=== PATIENT | male | born 1945 | race Caucasian/White ===

== ENCOUNTER → 2018-03-30 09:50 | Outpatient (CLI) | payer MEDICARE, SELFPAY ==
--- NOTE | 2018-03-30 09:53 | DI.RAD.S_ITS ---
PROCEDURE: XR LUMBAR SPINE MIN 4V INDICATIONS: Hip DJD TECHNIQUE: 5 views of the lumbar spine acquired. COMPARISON: [facility], , L-SPINE WITHOUT CONTRAST, 08/21/2017, 8:38. FINDINGS: Bones: 5 nonrib-bearing vertebrae are present. There is dextroconvex rotary scoliosis, mild retrolisthesis L2-3 and L3-4, anterolisthesis L5-S1, unchanged. No vertebral body compression fractures. No suspicious bony lesions, benign sclerosis in the left femoral head again noted. Disc degeneration all lumbar levels. Soft tissues: Overlying bowel gas pattern is normal. Aortic calcifications. Oblique views: No pars defects. Degenerative facet disease L4-5 and L5-S1. IMPRESSION: 1. No acute bony abnormality. 2. Scoliosis, malalignment, multilevel disc disease and facet arthropathy, appearing unchanged. Dictated by: Tej Call M.D. on 03/30/2018 at 10:21 Approved by: Tej Call M.D. on 03/30/2018 at 10:26
--- NOTE | 2018-03-30 09:53 | DI.RAD.S_ITS ---
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 COMPARISON: [facility], CR, [id number] W PEL IF PERFORMED, 06/22/2016, 10:21. FINDINGS: Bones: No fractures or dislocations. Pelvic ring appears intact. Benign sclerosis in the left femoral head is again unchanged. Mild degree of degenerative hip joint disease is unchanged. The degenerative disc disease and spondylosis lower lumbar spine with scoliosis. Soft tissues: The visualized bowel gas pattern is normal. Bilateral calcifications present overlying the greater trochanters. IMPRESSION: 1. Grade 1 osteoarthritis of the hips, unchanged. 2. Benign sclerosis left femoral head, unchanged from 2008. 3. Calcifications overlying the greater trochanters may represent calcific tendinopathy or bursitis. 4. Degenerative lumbar spine disease. Dictated by: Tej Call M.D. on 03/30/2018 at 10:16 Approved by: Tej Call M.D. on 03/30/2018 at 10:20
== END ==
PROVIDERS: PCP Family Medicine; Visit Provider Physical Medicine & Rehabilitation
DX: M43.17 Spondylolisthesis, lumbosacral region (principal); M16.0 Bilateral primary osteoarthritis of hip; M25.852 Other specified joint disorders, left hip; M25.851 Other specified joint disorders, right hip; M51.36 Other intervertebral disc degeneration, lumbar region; M47.816 Spondylosis without myelopathy or radiculopathy, lumbar region; M41.9 Scoliosis, unspecified
CPT/HCPCS: 72110; 73522

== ENCOUNTER 2018-04-25 08:43 | Outpatient (CLI) | payer MEDICARE, SELFPAY ==
[2018-04-25] VITALS (13 sets, daily range): BP systolic 113–131; BP diastolic 62–79; PULSE 64–81; RESP 18–64; TEMP 36.5; O2SAT 95–100
--- NOTE | 2018-04-25 08:44 | DI.RAD.S_ITS ---
PROCEDURE: PAIN L/SI FACET INJ/BLK 1STL INDICATIONS: right L4/5, L5/S1 Facet Injection FINDINGS: Fluoroscopic spot filming was performed to verify placement of spinal needles at the right L4-5 and right L5-S1 facet region level level(s), as labeled on the films. Appropriate location(s) of the needle tip(s) was confirmed by injection of iodinated contrast. IMPRESSION: Successful right L4 and right L5 nerve root region localization for injection. Dictated by: Joseph Collins M.D. on 04/25/2018 at 13:33 Approved by: Joseph Collins M.D. on 04/25/2018 at 13:34
[2018-04-25] MEDS: BUPIVACAINE 0.5% (PF) VIAL 2 ML INJ (09:54)
[2018-04-25] MEDS: BETAMETHASONE 30 MG/5 ML MDV 12 MG INJ (09:54)
[2018-04-25] MEDS: LIDOCAINE 1% 20 ML INJ 10 ML INJ (09:55)
[2018-04-25] MEDS: IOPAMIDOL 15 ML VIAL 3 ML INJ (09:55)
[2018-04-25] MEDS: MIDAZOLAM 5 MG/5 ML VIAL IV (09:55)
--- NOTE | 2018-04-25 10:02 | P.PCN_ITS ---
Procedures Date/Time Date of procedure: 04/25/18 Time of procedure: 10:01 General Procedure description: PREOP DIAGNOSIS 1. FACET ARTHROPATHY, 2. AXIAL LBP, 3. MULTILEVEL DDD, POST OP DIAGNOSIS 1. FACET ARTHROPATHY, 2. AXIAL LBP, 3. MULTILEVEL DDD, PROCEDURES 1. FLUORSCOPICALLY GUIDED CONTRAST CONTROLLED FACET JOINT INJECTIONS RIGHT L4/5 , L5/S1 SURGEON: Artemio Mitchell, DO INDICATIONS William is referred by for treatment of Axial LBP FINDINGS Multilevel Facet Arthropathy with Clinically significant axial LBP DESCRIPTION OF PROCEDURE Fluoroscopically guided, contrast-controlled right L4/5, L5/S1 facet joint injections. Following denial of allergy and review of potential side effects and complications, including, but not necessarily limited to, infection, allergic reaction, local tissue breakdown, stroke, temporary or permanent nerve injury, paralysis, and possible , the patient indicated that the patient understood and agreed to proceed. An informed consent document was signed by the patient, witnessed by a nurse, and placed in the patient's chart. Additionally, other treatment options including medications, modalities, and physical therapy were reviewed with the patient. After review of previous anaesthesic history and IV conscious sedation the patient was deemed safe to proceed with todays procedure with IV conscious sedation as ASA class II designation. Safety time-out was performed to confirm patient ID, procedure to be performed and site of procedure. IV sedation was accomplished with a combination of 3mg was administered by the RN after DO order , titrated to patient comfort during the course of the procedure while the patient remained responsive to all verbal commands. In the prone position, following sterile prep and drape of the lumbar region, the posterior aspect of the right L4/5, L5/S1 facet joints were identified fluoroscopically. The skin was anesthetized via a 25-gauge 1.5-inch needle with 1% lidocaine solution into the corresponding facet joints. At this point, a 22-gauge 3.5-inch spinal needle was atraumatically introduced and advanced under fluoroscopic guidance into the corresponding facet joints. Following negative aspiration, injections of approximately 0.2-cc of Isovue 200 confirmed interarticular placement without vascular uptake. Radiological data, including multiple fluoroscopic views of the lumbosacral spine, reveal a spinal needle at the right L4/5, L5/S1 facet joints. Subsequent views show flow of contrast material both superiorly and inferiorly within the joint space without vascular or intrathecal uptake. At this point, a total of 0.5 cc including a mixture of 0.25cc Marcaine and 0.25cc betamethasone was injected without complication into each of the corresponding facet joints. The procedure tolerated the procedure well without signs or symptoms of complications prior to transfer to the recovery area continued monitoring without incident. The patient was then transferred to the recovery area where they were observed for an appropriate period of time after the injection. The patient reported a VAS score of 7 prior to the procedure and a post-procedure VAS of 0. Total Fluoroscopy Time: 12.7 seconds Total Conscious Sedation Time: 24min POST OP INSTRUCTIONS The patient was provided a Pain Log to continue to record their response to the target-specific procedure prior to follow-up visit with their referring physician. Additionally, specific post-injection care instructions and a contact number to our office were provided if concerns arise regarding possible complications associated with the procedure are suspected. Artemio Mitchell DO Complications: none
== END 2018-04-25 10:50 ==
LOC: RAD 08:43
PROVIDERS: PCP Family Medicine; Visit Provider Physical Medicine & Rehabilitation
DX: M47.816 Spondylosis without myelopathy or radiculopathy, lumbar region (principal); M47.817 Spondylosis without myelopathy or radiculopathy, lumbosacral region; M51.36 Other intervertebral disc degeneration, lumbar region; M51.37 Other intervertebral disc degeneration, lumbosacral region
CPT/HCPCS: 64491; 64493; 64494; 99152; J0702; J2250

== ENCOUNTER 2018-07-18 09:21 | Outpatient (CLI) | payer MEDICARE, SELFPAY ==
[2018-07-18] VITALS (8 sets, daily range): BP systolic 126–142; BP diastolic 60–79; PULSE 70–79; RESP 16–18; TEMP 36.7; O2SAT 96–100
--- NOTE | 2018-07-18 09:23 | DI.RAD.S_ITS ---
PROCEDURE: PAIN L/S TRANSFORAMINAL INJECT INDICATIONS: SPINAL STENOSIS FINDINGS: Fluoroscopic spot filming was performed to verify placement of spinal needles at the right L5-S1 facet joint area level(s), as labeled on the films. Appropriate location(s) of the needle tip(s) was confirmed by injection of iodinated contrast. IMPRESSION: Successful needle tip localization for epidural steroid injection near the facet joint area of L5-S1 on the right. Dictated by: Joseph Collins M.D. on 07/18/2018 at 14:14 Approved by: Joseph Collins M.D. on 07/18/2018 at 14:14
[2018-07-18] MEDS: MIDAZOLAM 5 MG/5 ML VIAL IV (10:35)
[2018-07-18] MEDS: methylPREDNISolone acetate 80 MG/ML VIAL INJ (10:43)
[2018-07-18] MEDS: IOPAMIDOL 15 ML VIAL 3 ML INJ (10:43)
[2018-07-18] MEDS: BUPIVACAINE 0.25% (PF) VIAL 2 ML INJ (10:43)
[2018-07-18] MEDS: DEXAMETHASONE 10 MG/ML VIAL 20 MG INJ (10:43)
--- NOTE | 2018-07-18 10:45 | PC.NURSE ---
ASSISTING PT OFF TABLE AND TRANSPORTING TO POST PROC AREA IN STABLE CONDITION
--- NOTE | 2018-07-18 10:49 | P.PCN_ITS ---
Procedures Date/Time Date of procedure: 07/18/18 Time of procedure: 10:48 General Procedure description: PROVIDER: Artemio Mitchell DO Operative Note PREOP DIAGNOSIS 1. HNP WITH RADICULAR FEATURES, 2. MULTILEVEL CENTRAL STENOSIS, POST OP DIAGNOSIS 1. HNP WITH RADICULAR FEATURES, 2. MULTILEVEL CENTRAL STENOSIS, PROCEDURES 1. FLUORSCOPICALLY GUIDED CONTRAST CONTROLLED INTERLAMINAR EPIDURAL STEROID INJECTION - L5/S1 PHYSICIAN: Artemio Mitchell, INDICATIONS William is referred by Dr. Guerrier for treatment of Bilateral Foraminal Stenosis L>R LE symptoms. FINDINGS Multilevel Central Spinal Stenosis with Nerve Root Compression DESCRIPTION OF PROCEDURE Fluoroscopically guided, contrast-controlled para right L5/S1 translaminar epidural steroid injection. Following denial of allergy and review of potential side effects and complications, including, but not necessarily limited to, infection, allergic reaction, local tissue breakdown, temporary as well as permanent nerve injury, paralysis, stroke and possible , the patient indicated that the patient understood and agreed to proceed. An informed consent document was signed by the patient, witnessed by a nurse, and placed in the patient's chart. Additionally, other treatment options including modalities, medications, and physical therapy were reviewed with the patient. After review of previous anaesthesic history and IV conscious sedation the patient was deemed safe to proceed with todays procedure with IV conscious sedation as ASA class II designation. Safety time-out was performed to confirm patient ID, procedure to be performed and site of procedure. IV sedation was accomplished with a combination of 3mg of Versed administered by the RN after DO order, titrated to patient comfort during the course of the procedure while the patient remained responsive to all verbal commands. In the prone position, following sterile prep and drape of the lumbar region, the L5/S1 translaminar space was identified fluoroscopically. The skin was anesthetized via a 25-gauge, 1.5-inch needle with 1% lidocaine solution. At this point, a 22-gauge short bevel spinal needle was atraumatically introduced and advanced under fluoroscopic guidance into the region of the L5/S1 translaminar space. Depth was confirmed on lateral view. Radiological data, including multiple fluoroscopic views of the lumbar spine, reveal a spinal needle at the L5/S1 translaminar space. Lateral views then show placement of the needle in the epidural space. Subsequent views show contrast material flowing superiorly and inferiorly in the epidural space. No vascular or intrathecal uptake is observed. At this point, using loss of resistance technique with saline and air, the epidural space was entered. This was confirmed following negative aspiration with injection of approximately 1.5 cc of Isovue 200, showing excellent epidural flow without vascular or intrathecal uptake. At this point, 1 cc of 1 % lidocaine solution combined with 3 cc or 20 mg of dexamethasone and 80mg Depo medrol was injected without incident. The patent tolerated the procedure without signs of symptoms of complications prior to transfer to the recovery area for further monitoring. The patient was then transferred to the recovery area where they were observed for an appropriate period of time after the injection. The patient reported a VAS score of 6 prior to the procedure and a post-procedure VAS of 0. Total Fluoroscopy Time: 11.8 seconds Total Conscious Sedation Time: 24min POST OP INSTRUCTIONS The patient was provided a Pain Log to continue to record their response to the target-specific procedure prior to follow-up visit with their referring physician. Additionally, specific post-injection care instructions and a contact number to our office were provided if concerns arise regarding possible complications associated with the procedure are suspected. Artemio Mitchell DO Complications: none
--- NOTE | 2018-07-18 11:38 | PC.NURSE ---
Received pt from Leilani AUSTIN via Wheelchair, pt alert and able to move on own with some pain in right leg more than usual. Resumed monitoring.
== END 2018-07-18 11:15 ==
LOC: RAD 09:23
PROVIDERS: PCP Family Medicine; Visit Provider Physical Medicine & Rehabilitation
DX: M48.062 Spinal stenosis, lumbar region with neurogenic claudication (principal); M51.17 Intervertebral disc disorders with radiculopathy, lumbosacral region; M48.07 Spinal stenosis, lumbosacral region; M43.17 Spondylolisthesis, lumbosacral region
CPT/HCPCS: 64483; 99152; J0702; J1040; J1100; J2250

== ENCOUNTER 2018-12-25 13:05 | Outpatient (CLI) | payer MEDICARE, SELFPAY ==
--- NOTE | 2018-12-25 13:26 | DI.RAD.S_ITS ---
PROCEDURE: PAIN L/S TRANSFORAMINAL INJECT INDICATIONS: SPINAL STENOSIS FINDINGS: Fluoroscopic spot filming was performed to verify placement of spinal needle on the right at the L3-4 level(s), as labeled on the films. Appropriate location(s) of the needle tip(s) was confirmed by injection of iodinated contrast. IMPRESSION: Frontal and lateral views show normal positioning of the needle tip for perineural L3-L4 transforaminal epidural steroid injection on the right. Dictated by: Joseph Collins M.D. on 12/25/2018 at 15:42 Approved by: Joseph Collins M.D. on 12/25/2018 at 15:43
[2018-12-25 13:28] VITALS: BP 143/73; PULSE 71; RESP 16; TEMP 36.2; O2SAT 98
[2018-12-25 13:50] VITALS: BP 133/61; PULSE 72; RESP 16; O2SAT 97
[2018-12-25] MEDS: MIDAZOLAM 5 MG/5 ML VIAL IV (13:50)
[2018-12-25 13:55] VITALS: BP 124/55; PULSE 71; RESP 17; O2SAT 97
[2018-12-25] MEDS: DEXAMETHASONE 10 MG/ML VIAL 20 MG INJ (13:57)
[2018-12-25] MEDS: BUPIVACAINE 0.25% (PF) VIAL 2 ML INJ (13:57)
[2018-12-25] MEDS: IOPAMIDOL 15 ML VIAL 3 ML INJ (13:57)
[2018-12-25 14:00] VITALS: BP 114/58; PULSE 71; RESP 16; O2SAT 96
--- NOTE | 2018-12-25 14:02 | PC.NURSE ---
pt tolerated procedure well. pt able to get off table with standby assist. Transferred pt to pre procedure room via wheelchair for continued monitoring with Leilani AUSTIN.
--- NOTE | 2018-12-25 14:07 | P.PCN_ITS ---
Procedures Date/Time Date of procedure: 12/25/18 Time of procedure: 14:06 General Procedure description: PROVIDER: Artemio Mitchell DO Operative Note PREOP DIAGNOSIS 1. FORAMINAL STENOSIS WITH LE SYMPTOMS, POST OP DIAGNOSIS 1. FORAMINAL STENOSIS WITH LE SYMPTOMS, PROCEDURES 1. FLUOROSCOPICALLY GUIDED CONTRAST CONTROLLED TRANSFORAMINAL EPIDURAL STEROID INJECTION - RIGHT L3/4 TFESI SURGEON: Artemio Mitchell, INDICATIONS William is referred by Dr. Guerrier for treatment of Foraminal Stenosis with right LE Symptoms FINDINGS Foraminal Nerve Root Compression secondary to disc disease and facet hypertrophy DESCRIPTION OF PROCEDURE Following denial of allergy and review of potential side effects and complications, including, but not necessarily limited to, infection, allergic reaction, local tissue breakdown, stroke, temporary or permanent nerve injury, paralysis, and possible , the patient indicated that the patient understood and agreed to proceed. An informed consent document was signed by the patient, witnessed by a nurse, and placed in the patient's chart. Additionally, other treatment options including medications, modalities, and physical therapy were reviewed with the patient. After review of previous anaesthesic history and IV conscious sedation the patient was deemed safe to proceed with todays procedure with IV conscious sedation as ASA class II designation. Safety time-out was performed to confirm p atient ID, procedure to be performed and site of procedure. IV sedation was accomplished with a combination of 3mg of Versed was administered by the RN after DO order, titrated to patient comfort during the course of the procedure while the patient remained responsive to all verbal commands In the prone position following sterile prep and drape of the lumbar region, the right L3/4 posterior neuroforamen was identified fluoroscopically. The skin was anesthetized via a 25-gauge 1.5-inch needle with 1% lidocaine solution. At this point, a 25-gauge 3.5-inch spinal needle was atraumatically introduced and advanced under fluoroscopic guidance through the posterior right L3/4 neuroforamen to approximately the anterior aspect of the canal. Depth was confirmed on lateral view. Following negative aspiration, injection of approximately 1.5 cc of Isovue 200 under live fluoroscopy in the AP view confirmed excellent flow along the nerve root, into the epidural space without vascular or intrathecal uptake observed Radiological data, including multiple fluoroscopic views of the lumbosacral spine, reveal a spinal needle at the right L3/4 posterior neuroforamen. Subsequent views show flow of contrast material flowing superiorly and inferiorly along the nerve root confirming epidural flow. Subsequently, a test dose of 1.5 cc of 1% lidocaine solution was administered and patient was observed for two minutes for signs or symptoms of complications, including abdominal pain, shortness of breath, bilateral upper or lower extremity weakness, nausea and vomiting, prior to steroid injection. At this point, a total of 2cc or 20mg of dexamethasone was injected without incident. The patient tolerated the procedure well without signs or symptoms of complications prior to transfer to the recovery area continued monitoring without incident. The patient was then transferred to the recovery area where they were observed for an appropriate time after the injection. The patient reported a VAS score of 7 prior to the procedure and a post-procedure VAS of 0. Total Fluoroscopy Time: 24.2 seconds Total Conscious Sedation Time: 24min POST OP INSTRUCTIONS The patient was provided a Pain Log to continue to record their response to the target-specific procedure prior to follow-up visit with their referring physician. Additionally, specific post-injection care instructions and a contact number to our office were provided if concerns arise regarding possible complications associated with the procedure are suspected. Artemio Mitchell DO Complications: none
[2018-12-25 14:11] VITALS: BP 134/75; PULSE 68; RESP 16; O2SAT 97
[2018-12-25 14:15] VITALS: BP 133/76; PULSE 68; RESP 16; O2SAT 98
--- NOTE | 2018-12-26 12:18 | PC.NURSE ---
Follow up call post Right L3/4 Transforaminal CLAUDIO and pt reports he feels much better today and woke up without pain.
== END 2018-12-25 14:30 | disposition home or self-care (01) ==
LOC: RAD 13:07
PROVIDERS: PCP Family Medicine; Visit Provider Physical Medicine & Rehabilitation
DX: M48.062 Spinal stenosis, lumbar region with neurogenic claudication (principal); M46.96 Unspecified inflammatory spondylopathy, lumbar region
CPT/HCPCS: 64483; 99152; J1100; J2250; J3010

== ENCOUNTER 2019-02-21 10:14 | Outpatient (CLI) | payer MEDICARE, SELFPAY ==
[2019-02-21] VITALS (8 sets, daily range): BP systolic 112–131; BP diastolic 57–82; PULSE 67–75; RESP 16–18; TEMP 36.6; O2SAT 94–99
--- NOTE | 2019-02-21 10:15 | DI.RAD.S_ITS ---
PROCEDURE: PAIN L/S FACET INJ/BLK 1ST CHIKA INDICATIONS: SPONDYLOSIS FINDINGS: 6 intraoperative fluoroscopy images demonstrate needle placement under fluoroscopy. IMPRESSION: Fluoroscopy for pain management. Dictated by: Betsy Pichardo M.D. on 02/21/2019 at 12:26 Approved by: Betsy Pichardo M.D. on 02/21/2019 at 12:26
[2019-02-21] MEDS: MIDAZOLAM 5 MG/5 ML VIAL IV (11:03)
[2019-02-21] MEDS: fentaNYL 100 MCG/2 ML INJ 50 MCG IV (11:03)
[2019-02-21] MEDS: IOPAMIDOL 15 ML VIAL 3 ML INJ (11:10)
[2019-02-21] MEDS: LIDOCAINE 1% 20 ML INJ 10 ML INJ (11:11)
[2019-02-21] MEDS: BUPIVACAINE 0.5% (PF) VIAL 30 ML INJ (11:12)
[2019-02-21] MEDS: BETAMETHASONE 30 MG/5 ML MDV 12 MG INJ (11:12)
--- NOTE | 2019-02-21 11:25 | PC.NURSE ---
Pt tolerated procedure well. Able to get off table with standby assist. Transferred pt via wheelchair alert and awake to pre procedure room for continued monitoring with Leilani AUSTIN.
--- NOTE | 2019-02-21 11:34 | PM.PROC.1 ---
Procedures Date/Time Date of procedure: 02/21/19 Time of procedure: 11:34 General Procedure description: Procedure description: 1. FACET ARTHROPATHY PROCEDURES: 1. BILATERAL- L4, L5 and S1 MB BLOCKS PHYSICIAN: DO KARIME Timmons William is referred by Dr. Guerrier for treatment of Bilateral Axial LBP. DESCRIPTION OF PROCEDURE Fluoroscopically guided, contrast-controlled bilateral L4, L5 and S1 medial branch blocks with 0.5cc of 0.5% Marcaine. Following review of allergy and review of potential side effects and complications, including, but not necessarily limited to, infection, allergic reaction, local tissue breakdown, nerve injury, paralysis, stroke and possible , the patient indicated that the patient understood and agreed to proceed. An informed consent document was signed by the patient, witnessed by a nurse, and placed in the patient's chart. After review of previous anaesthesic history and IV conscious sedation the patient was deemed safe to proceed with todays procedure with IV conscious sedation as ASA class II designation. Safety time-out was performed to confirm patient ID, procedure to be performed and site of procedure. IV sedation was accomplished with a combination of 2mg of Versed and 50mcg of Fentanyl was administered by the RN after DO order, titrated to patient comfort during the course of the procedure while the patient remained responsive to all verbal commands In the prone position, following sterile prep and drape of the lumbar region, the right L4, L5 and S1 anatomical location of the medial branch of the dorsal ramus was identified fluoroscopically. Subsequently an anesthetic skin wheal using 1% lidocaine solution was initiated at each of the anatomical spots. Subsequently then a 22-gauge 3.5-inch spinal needle was atraumatically introduced and advanced under fluoroscopic guidance at each of the corresponding sites at the right L4, L5 and S1 MB. After negative aspiration, 0.2 cc of Isovue 200 was injected, confirming placement without vascular or intrathecal uptake. Subsequently then 0.5 cc of 0.5% Marcaine solution was injected at each of the corresponding sites at the right L4, L5 and S1 medial branch locations. The identical procedure was replicated on the left. The patient tolerated the procedure well without signs or symptoms of complications prior to transfer to the recovery area continued monitoring without incident. Post-procedure, the patient was monitored initiating provocative activities to measure the amount of relief from block of the facetogenic pain. The patient reported a VAS of 7 prior to the procedure and a post-procedure VAS of 1. It has been a pleasure to assist in the diagnostic and therapeutic care of your patient. Total Fluoroscopy Time: 24.8 seconds Total Conscious Sedation Time: 24min POST OP INSTRUCTIONS The patient was provided with a Pain Log to complete over the next several hours and subsequent days prior to the patient's follow up with the ordering physician. If the patient has production machine tender relief to the solution applied, then they may be a candidate for medial branch rhizotomy. The patient is aware, was provided, once again, with a Pain Log and will follow up with the referring physician for review and clinical correlation Artemio Mitchell DO Complications: none
--- NOTE | 2019-02-21 11:35 | PC.NURSE ---
ACCEPTING CARE OF PT IN POST PROC AREA IN STABLE CONDITION
== END 2019-02-21 12:03 | disposition home or self-care (01) ==
LOC: RAD 10:15
PROVIDERS: PCP Family Medicine; Visit Provider Physical Medicine & Rehabilitation
DX: M47.816 Spondylosis without myelopathy or radiculopathy, lumbar region (principal); M47.817 Spondylosis without myelopathy or radiculopathy, lumbosacral region
CPT/HCPCS: 64493; 64494; 99152; J0702; J2250; J3010

== ENCOUNTER → 2019-02-23 10:08 | Outpatient (CLI) | payer MEDICARE, SELFPAY ==
--- NOTE | 2019-02-23 | DI.RAD.S_ITS ---
PROCEDURE: XR CHEST 2V INDICATIONS: COUGH TECHNIQUE: 2 views of the chest were acquired. COMPARISON: None. FINDINGS: Surgical changes and devices: None. Lungs and pleura: Lungs are clear. No pleural effusions or pneumothorax. Mediastinum: Mediastinal contours are normal. Heart size is normal. Bones and chest wall: No suspicious bony abnormalities. Soft tissues appear unremarkable. IMPRESSION: No acute process. Dictated by: Daniel Hobson M.D. on 02/23/2019 at 9:29 Approved by: Daniel Hobson M.D. on 02/23/2019 at 9:30
== END ==
PROVIDERS: PCP Family Medicine; Visit Provider Family Medicine
DX: R05 Cough (principal)
CPT/HCPCS: 71046

== ENCOUNTER 2019-06-18 07:13 | Outpatient (CLI) | payer MEDICARE, SELFPAY ==
[2019-06-18] VITALS (15 sets, daily range): BP systolic 104–133; BP diastolic 43–76; PULSE 68–82; RESP 16; TEMP 36.4; O2SAT 94–99
--- NOTE | 2019-06-18 07:17 | DI.RAD.S_ITS ---
PROCEDURE: PAIN L/S MED/LAT N RFA BILAT INDICATIONS: SPONDYLOLISTHES FINDINGS: Fluoroscopic spot filming was performed to verify placement of spinal needles at the L4, L5 and S1 level(s), as labeled on the films. Appropriate location(s) of the needle tip(s) was confirmed by injection of iodinated contrast. IMPRESSION: Fluoroscopy for pain management. Dictated by: Betsy Pichardo M.D. on 06/18/2019 at 18:10 Approved by: Betsy Pichardo M.D. on 06/18/2019 at 18:10
[2019-06-18] MEDS: fentaNYL 100 MCG/2 ML INJ 50 MCG IV (08:29)
[2019-06-18] MEDS: LIDOCAINE 1% 20 ML 10 ML INJ (08:39)
[2019-06-18] MEDS: BETAMETHASONE 30 MG/5 ML MDV 12 MG INJ (08:40)
[2019-06-18] MEDS: BUPIVACAINE 0.5% (PF) VIAL 5 ML INJ (08:41)
[2019-06-18] MEDS: MIDAZOLAM 5 MG/5 ML VIAL IV (08:58)
--- NOTE | 2019-06-18 09:07 | PC.NURSE ---
ASSISTING PT OFF TABLE AND TRANSPORTING TO POST PROC AREA IN STABLE CONDITION. RN CARE HANDED OFF TO SERGEY Pantoja RN
--- NOTE | 2019-06-18 09:17 | PM.PROC.1 ---
Procedures Date/Time Date of procedure: 06/18/19 Time of procedure: 09:17 General Procedure description: Procedure description: 1. FACET ARTHROPATHY PROCEDURES: 1. BILATERAL- L4, L5 and S1 MB BLOCKS PHYSICIAN: DO KARIME Timmons William is referred by for treatment of Bilateral Axial LBP. DESCRIPTION OF PROCEDURE Fluoroscopically guided, contrast-controlled bilateral L4, L5 and S1 medial branch blocks with 0.5cc of 0.5% Marcaine. Following review of allergy and review of potential side effects and complications, including, but not necessarily limited to, infection, allergic reaction, local tissue breakdown, nerve injury, paralysis, stroke and possible , the patient indicated that the patient understood and agreed to proceed. An informed consent document was signed by the patient, witnessed by a nurse, and placed in the patient's chart. After review of previous anaesthesic history and IV conscious sedation the patient was deemed safe to proceed with todays procedure with IV conscious sedation as ASA class II designation. Safety time-out was performed to confirm patient ID, procedure to be performed and site of procedure. IV sedation was accomplished with a combination of 5mg of Versed and 50mcg of Fentanyl was administered by the RN after DO order, titrated to patient comfort during the course of the procedure while the patient remained responsive to all verbal commands In the prone position, following sterile prep and drape of the lumbar region, the right L4, L5 and S1 anatomical location of the medial branch of the dorsal ramus was identified fluoroscopically. Subsequently an anesthetic skin wheal using 1% lidocaine solution was initiated at each of the anatomical spots. Subsequently then a 22-gauge 3.5-inch spinal needle was atraumatically introduced and advanced under fluoroscopic guidance at each of the corresponding sites at the right L4, L5 and S1 MB. After negative aspiration, 0.2cc of Isovue 200 was injected, confirming placement without vascular or intrathecal uptake. Subsequently then 0.5cc of 0.5% Marcaine solution was injected at each of the corresponding sites at the right L4, L5 and S1 medial branch locations. The identical procedure was replicated on the left. The patient tolerated the procedure well without signs or symptoms of complications prior to transfer to the recovery area continued monitoring without incident. Post-procedure, the patient was monitored initiating provocative activities to measure the amount of relief from block of the facetogenic pain. The patient reported a VAS of 7 prior to the procedure and a post-procedure VAS of 1. It has been a pleasure to assist in the diagnostic and therapeutic care of your patient. Total Fluoroscopy Time: 24.8 seconds Total Conscious Sedation Time: 24min POST OP INSTRUCTIONS The patient was provided with a Pain Log to complete over the next several hours and subsequent days prior to the patient's follow up with the ordering physician. If the patient has account management assistant relief to the solution applied, then they may be a candidate for medial branch rhizotomy. The patient is aware, was provided, once again, with a Pain Log and will follow up with the referring physician for review and clinical correlation Artemio Mitchell DO Complications: none
--- NOTE | 2019-06-18 16:25 | PC.NURSE ---
Late entry discharge note: VSS, O2 Sat WNL, Osiris PO without nausea. pain level 3/10, tolerable. Denies any unusual numbness or tingling to lower extremities. Stable for discharge to home, w/c to car.
== END 2019-06-18 09:55 ==
LOC: RAD 07:16
PROVIDERS: PCP Family Medicine; Visit Provider Physical Medicine & Rehabilitation
DX: M47.816 Spondylosis without myelopathy or radiculopathy, lumbar region (principal); M47.817 Spondylosis without myelopathy or radiculopathy, lumbosacral region; M54.5 Low back pain
CPT/HCPCS: 64635; 64636; 99152; 99153; J0702; J2250; J3010

== ENCOUNTER → 2019-09-03 12:04 | Outpatient (CLI) | payer MEDICARE, SELFPAY ==
--- NOTE | 2019-09-03 | DI.US.S_ITS ---
PROCEDURE: US CAROTID DOPPLER BI INDICATIONS: CAD TECHNIQUE: Color and pulse Doppler interrogation was performed of both carotid systems, with image documentation and velocity measurements. COMPARISON: None. FINDINGS: Stenosis calculations are based on SRU (Society of Radi[employer] in Ultras[employer]) criteria. Right side: Brachial blood pressure: 141/80 mm Hg. Common carotid artery peak systolic velocity: 75 cm/sec. Internal carotid artery peak systolic velocity: 48 cm/sec. Internal carotid artery end diastolic velocity: 20 cm/sec. External carotid artery peak systolic velocity: 55 cm/sec. ICA/CCA peak systolic ratio: 0.7. Farooq scale imaging description: Mild soft plaque Percent internal carotid artery stenosis: Less than 50%. Vertebral artery: Flow direction is antegrade. Left side: Brachial blood pressure: 116/75 mm Hg. Common carotid artery peak systolic velocity: 79 cm/sec. Internal carotid artery peak systolic velocity: 29 cm/sec. Internal carotid artery end diastolic velocity: 5.0 cm/sec. External carotid artery peak systolic velocity: 78 cm/sec. ICA/CCA peak systolic ratio: 0.7. Farooq scale imaging description: Mild soft plaque and minimal calcific plaque Percent internal carotid artery stenosis: Less than 50% stenosis. Vertebral artery: Flow direction is antegrade. IMPRESSION: Less than 50% stenosis at the origin of each internal carotid artery. Vertebral arterial flow is antegrade in direction. Dictated by: Joseph Collins M.D. on 09/03/2019 at 16:25 Approved by: Jsoeph Collins M.D. on 09/03/2019 at 16:28
== END ==
PROVIDERS: PCP Family Medicine; Visit Provider Family Medicine
DX: I65.23 Occlusion and stenosis of bilateral carotid arteries (principal); I25.10 Atherosclerotic heart disease of native coronary artery without angina pectoris; I73.9 Peripheral vascular disease, unspecified
CPT/HCPCS: 93880

== ENCOUNTER → 2019-09-06 11:01 | Outpatient (CLI) | payer MEDICARE, SELFPAY ==
--- NOTE | 2019-09-06 11:04 | DI.RAD.S_ITS ---
PROCEDURE: XR CERVICAL SPINE 4V OR 5V INDICATIONS: Weakness gait instability TECHNIQUE: 5 views of the cervical spine acquired. COMPARISON: None. FINDINGS: Bones: No fractures or dislocations to the T1 level. Oblique images demonstrate no bony foraminal stenoses. Note is made of a moderate degree of degenerative disc disease with disc height reduction at C3-4, and a mild degree of such degeneration at C4-5. Moderately severe degenerative disc disease is present at C5-6 and C6-7. The oblique views show bilateral moderately severe foraminal stenosis from C5 inferiorly. Soft tissues: No prevertebral soft tissue swelling. IMPRESSION: Multilevel degenerative disc disease and especially facet osteoarthritis is present as detailed in the body of the report above. Foraminal stenosis is significant bilaterally from C5 inferiorly through the middle and lower thirds of the cervical spine. Dictated by: Joseph Collins M.D. on 09/06/2019 at 15:28 Approved by: Joseph Collins M.D. on 09/06/2019 at 15:29
== END ==
PROVIDERS: PCP Family Medicine; Visit Provider Physical Medicine & Rehabilitation
DX: M47.812 Spondylosis without myelopathy or radiculopathy, cervical region (principal); M50.31 Other cervical disc degeneration, high cervical region; M48.02 Spinal stenosis, cervical region; M43.17 Spondylolisthesis, lumbosacral region; M46.96 Unspecified inflammatory spondylopathy, lumbar region; R26.81 Unsteadiness on feet
CPT/HCPCS: 72050

== ENCOUNTER → 2019-09-13 07:24 | Outpatient (CLI) | payer MEDICARE, SELFPAY ==
--- NOTE | 2019-09-13 07:25 | DI.MRI.S_ITS ---
PROCEDURE: MR LUMBAR SPINE WO CON INDICATIONS: Gait instability status post medial branch RFA TECHNIQUE: Noncontrast sagittal T1 spin echo and T2 fast echo, sagittal STIR, axial T1 and T2 fast spin echo through the lumbar spine. In cases with scoliosis, additional coronal T2 fast spin echo may be performed. COMPARISON: [facility], , L-SPINE WITHOUT CONTRAST, 08/21/2017, 8:38. FINDINGS: Image quality: Excellent. Alignment and Curvature: Bilateral L5 pars defects with grade 1 anterolisthesis of L5 on S1 measuring 9 mm. Trace degenerative retrolisthesis of L3 on L4 and L2 on L3. Bone Marrow: There is a moderate acute compression fracture of L1 with posterior bony retropulsion measuring approximately 4 mm. This does not result in significant canal stenosis. Spinal Cord: Conus medullaris terminates at the L1-L2 level. Visualized cord demonstrates normal signal and size. Paraspinous Soft Tissues: No paravertebral masses. T12-L1: No canal stenosis or foraminal stenosis. L1-L2: Mild disc bulge. Facet hypertrophy. No canal stenosis or foraminal stenosis. L2-L3: Mild posterior disc plus osteophyte. No canal stenosis. Facet hypertrophy. Mild left foraminal stenosis. L3-L4: Mild disc bulge. Facet and ligament hypertrophy. Mild canal stenosis. Mild bilateral foraminal stenosis. L4-L5: Mild disc bulge. Facet and ligament hypertrophy. No canal stenosis. Mild left foraminal stenosis. L5-S1: L5 pars defects. Grade 1 anterolisthesis of L5 on S1. This has increased since the prior study. There was previously 4 mm of anterolisthesis. There is no 9 mm. Prominent bilateral facet hypertrophy. Mild canal stenosis. Mild right and moderate left foraminal narrowing. Mild flattening deformity on the exiting left L5 nerve root. IMPRESSION: 1. Normal appearance of distal cord. However, if suspect a cord infarct, consider thoracic spine MRI. 2. Moderate acute L1 compression fracture. 3. Bilateral L5 pars defects with grade 1 anterolisthesis of L5 on S1. Anterolisthesis is increased from the prior study. 4. Multilevel facet arthropathy. 5. Mild multilevel canal stenosis. 6. Moderate left foraminal narrowing at L5-S1. Dictated by: Jim Owusu M.D. on 09/13/2019 at 8:31 Approved by: Jim Owusu M.D. on 09/13/2019 at 8:40
== END ==
PROVIDERS: PCP Family Medicine; Visit Provider Physical Medicine & Rehabilitation
DX: M48.062 Spinal stenosis, lumbar region with neurogenic claudication (principal); M48.07 Spinal stenosis, lumbosacral region; R26.81 Unsteadiness on feet; M47.816 Spondylosis without myelopathy or radiculopathy, lumbar region; M47.817 Spondylosis without myelopathy or radiculopathy, lumbosacral region; M48.56XA Collapsed vertebra, not elsewhere classified, lumbar region, initial encounter for fracture; M46.96 Unspecified inflammatory spondylopathy, lumbar region; M43.17 Spondylolisthesis, lumbosacral region
CPT/HCPCS: 72148

== ENCOUNTER → 2020-05-02 16:28 | Outpatient (CLI) | payer MEDICARE, OTHER, SELFPAY ==
[2020-05-03 23:15] LABS: COVID19 Sendout Not Detected (Not Detect)
== END ==
PROVIDERS: PCP Family Medicine; Visit Provider Nurse Practitioner
DX: Z11.59 Encounter for screening for other viral diseases (principal)
CPT/HCPCS: 87635

== ENCOUNTER 2020-05-05 09:27 | Outpatient (CLI) | payer MEDICARE, OTHER, SELFPAY ==
[2020-05-05] VITALS (7 sets, daily range): BP systolic 111–131; BP diastolic 61–74; PULSE 58–66; RESP 13–19; TEMP 36.2; O2SAT 96–100
--- NOTE | 2020-05-05 09:30 | DI.RAD.S_ITS ---
PROCEDURE: PAIN L INTERLAMINAR/CAUDAL INJ INDICATIONS: L5/S1 TL CLAUDIO COMPARISON: None. FINDINGS: Fluoroscopic spot filming was performed to verify placement of spinal needles at the L5-S1 level(s), as labeled on the films. Appropriate location(s) of the needle tip(s) was confirmed by injection of iodinated contrast. Dictated by: Wilfredo Bond M.D. on 05/05/2020 at 12:35 Approved by: Wilfredo Bond M.D. on 05/05/2020 at 12:36
[2020-05-05] MEDS: fentaNYL 100 MCG/2 ML INJ 50 MCG IV (10:56)
[2020-05-05] MEDS: MIDAZOLAM 5 MG/5 ML VIAL IV (10:56)
[2020-05-05] MEDS: BUPIVACAINE 0.25% (PF) VIAL 2 ML INJ (10:59)
[2020-05-05] MEDS: IOPAMIDOL 15 ML VIAL 3 ML INJ (10:59)
[2020-05-05] MEDS: BETAMETHASONE 30 MG/5 ML MDV 6 MG INJ (11:00)
[2020-05-05] MEDS: DEXAMETHASONE 10 MG/ML VIAL 20 MG INJ (11:01)
--- NOTE | 2020-05-05 11:07 | PM.PROC.IR.1 ---
Date/Time/Diagnoses Date of procedure: 05/05/20 Time of procedure: 11:07 Pre-procedure diagnosis: 1. HNP WITH RADICULAR FEATURES, 2. MULTILEVEL CENTRAL STENOSIS, Post-procedure diagnosis: same Procedure Notes Procedure: 1. FLUOROSCOPICALLY GUIDED CONTRAST CONTROLLED INTERLAMINAR EPIDURAL STEROID INJECTION - L5/S1 Indications: William is referred by for treatment of Bilateral Foraminal Stenosis L>R LE symptoms. Physician: Artemio Mitchell Total Fluoroscopy time (seconds): 7 Total sedation minutes: 10 Complications: none Procedure in detail & Post-procedure care: FINDINGS Multilevel Central Spinal Stenosis with Nerve Root Compression DESCRIPTION OF PROCEDURE Fluoroscopically guided, contrast-controlled L5/S1 translaminar epidural steroid injection. Following review of allergy and review of potential side effects and complications, including, but not necessarily limited to, infection, allergic reaction, local tissue breakdown, temporary as well as permanent nerve injury, paralysis, stroke and possible , the patient indicated that the patient understood and agreed to proceed. An informed consent document was signed by the patient, witnessed by a nurse, and placed in the patient's chart. Additionally, other treatment options including modalities, medications, and physical therapy were reviewed with the patient. After review of previous anaesthesic history and IV conscious sedation the patient was deemed safe to proceed with today?s procedure with IV conscious sedation as ASA class II designation. Safety time-out was performed to confirm patient ID, procedure to be performed and site of procedure. IV sedation was accomplished with a combination of 2mg of Versed and 50mcg of Fentanyl administered by the RN after DO order, titrated to patient comfort during the course of the procedure while the patient remained responsive to all verbal commands. In the prone position, following sterile prep and drape of the lumbar region, the L5/S1 translaminar space was identified fluoroscopically. The skin was anesthetized via a 25-gauge, 1.5-inch needle with 1% lidocaine solution. At this point, a 22-gauge short bevel spinal needle was atraumatically introduced and advanced under fluoroscopic guidance into the region of the L5/S1 translaminar space. Depth was confirmed on lateral view. Radiological data, including multiple fluoroscopic views of the lumbar spine, reveal a spinal needle at the L5/S1 translaminar space. Lateral views then show placement of the needle in the epidural space. Subsequent views show contrast material flowing superiorly and inferiorly in the epidural space. No vascular or intrathecal uptake is observed. At this point, using loss of resistance technique with saline and air, the epidural space was entered. This was confirmed following negative aspiration with injection of approximately 1.5cc of Isovue 200, showing excellent epidural flow without vascular or intrathecal uptake. At this point, 1 cc of 1% lidocaine solution combined with 3cc or 20mg of dexamethasone and 6mg of betamethasone was injected without incident. The patent tolerated the procedure without signs of symptoms of complications prior to transfer to the recovery area for further monitoring. The patient was then transferred to the recovery area where they were observed for an appropriate period of time after the injection. The patient reported a VAS score of 6 prior to the procedure and a post-procedure VAS of 0. POST OP INSTRUCTIONS The patient was provided a Pain Log to continue to record their response to the target-specific procedure prior to follow-up visit with their referring physician. Additionally, specific post-injection care instructions and a contact number to our office were provided if concerns arise regarding possible complications associated with the procedure are suspected.
== END 2020-05-05 11:34 | disposition home or self-care (01) ==
LOC: RAD 09:30
PROVIDERS: PCP Family Medicine; Referring Provider Physical Medicine & Rehabilitation; Visit Provider Physical Medicine & Rehabilitation
DX: M51.17 Intervertebral disc disorders with radiculopathy, lumbosacral region (principal); M48.07 Spinal stenosis, lumbosacral region
CPT/HCPCS: 62323; 99152; J0702; J1100; J2250; J3010

== ENCOUNTER → 2020-05-15 09:20 | Outpatient (CLI) | payer MEDICARE, OTHER, SELFPAY ==
--- NOTE | 2020-05-15 | DI.CT.S_ITS ---
PROCEDURE: CT ABDOMEN PELVIS W CON INDICATIONS: WEIGHT LOSS TECHNIQUE: After the administration of oral and intravenous contrast, 5 mm thick sections acquired from the diaphragms to the symphysis. 5 mm thick coronal and sagittal reformats were performed. For radiation dose reduction, the following was used: automated exposure control, adjustment of mA and/or kV according to patient size. COMPARISON: [facility], CT, ABDOMEN/PELVIS WITH CONTRAST, 10/25/2007, 12:49. FINDINGS: Image quality: Excellent. ABDOMEN: Lung bases: Lung bases are clear. Mitral annular calcification and aortic valvuloplasty changes. Heart size is normal. Small hiatal hernia present. Solid organs: Liver is normal in size and enhancement. Gallbladder is unremarkable . Biliary system is non-dilated. Pancreas enhances normally. Spleen is normal in size and enhancement. No adrenal nodules. Kidneys are normal in size and enhancement, without hydronephrosis. There is a right lower pole parapelvic cyst. Peritoneum and bowel: Stomach, small bowel, and colon loops are normal in caliber and wall thickness. Increased quantity of solid colonic stool throughout. A normal appendix is seen. No free fluid or air. Nodes and vessels: No retroperitoneal or mesenteric adenopathy. Aorta and inferior vena cava are normal in caliber. The aorta is tortuous and demonstrates moderate to heavy calcification. Miscellaneous: No ventral hernias. PELVIS: Genitourinary: Bladder wall thickness is normal. Mildly enlarged prostate gland with coarse central calcification. Miscellaneous: Tiny fat containing left inguinal hernia. No adenopathy. Bones: No suspicious bony lesions. There is a severe compression fracture of L1, rightward curvature of the upper lumbar spine. Decreased mineralization and endplate spurring. Grade 1 anterolisthesis L5 on S1. There are sclerotic changes in the superior aspect of the left femoral head suspicious for avascular necrosis. IMPRESSION: 1. Etiology of weight loss is not evident from this study. 2. 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 3. Mild prostatomegaly. 4. Increased quantity of retained stool. Dictated by: Dee Dee Arora M.D. on 05/15/2020 at 11:29 Approved by: Dee Dee Arora M.D. on 05/15/2020 at 11:47
== END ==
PROVIDERS: PCP Family Medicine; Referring Provider Family Medicine; Visit Provider Family Medicine
DX: R63.4 Abnormal weight loss (principal); N40.0 Benign prostatic hyperplasia without lower urinary tract symptoms; M48.56XA Collapsed vertebra, not elsewhere classified, lumbar region, initial encounter for fracture
CPT/HCPCS: 74177; Q9967

== ENCOUNTER → 2020-06-30 13:25 | Outpatient (CLI) | payer MEDICARE, OTHER, SELFPAY ==
--- NOTE | 2020-06-30 13:27 | DI.RAD.S_ITS ---
PROCEDURE: XR LUMBAR SPINE MIN 4V INDICATIONS: UPDATE IMAGING TECHNIQUE: 5 views of the lumbar spine were acquired. COMPARISON: [facility], CR, XR LUMBAR SPINE MIN 4V, 03/30/2018, 9:33. FINDINGS: Bones: 5 nonrib-bearing vertebrae are present. There is mildly dextroscoliotic bony alignment centered at the L2 level of the LS spine.. No vertebral body compression fractures. No suspicious bony lesions. Quality of visualization is again relatively limited by overlie of colonic obstipation and bowel gas. Note is made of a superior endplate L3 compression fracture, previously present but having slightly worsened on the most recent study when compared to the examination from 03/30/18. Soft tissues: Overlying bowel gas pattern is normal. No suspicious soft tissue calcifications. Oblique images: No pars defects. IMPRESSION: Stable convex rightward mild lumbosacral spine scoliosis, stable degenerative changes. Mild interval worsening of the L3 superior endplate impaction fracture, which is not clearly associated with retropulsion of bone fragments into the spinal canal. If improve visualization is clinically desired MR scanning could be utilized to assess for acute change on chronic compression fracture. Dictated by: Joseph Collins M.D. on 06/30/2020 at 15:56 Approved by: Joseph Collins M.D. on 06/30/2020 at 15:59
== END ==
PROVIDERS: PCP Family Medicine; Referring Provider Physical Medicine & Rehabilitation; Visit Provider Physical Medicine & Rehabilitation
DX: S32.038A Other fracture of third lumbar vertebra, initial encounter for closed fracture (principal); S32.010A Wedge compression fracture of first lumbar vertebra, initial encounter for closed fracture; M43.17 Spondylolisthesis, lumbosacral region; M46.96 Unspecified inflammatory spondylopathy, lumbar region; M48.062 Spinal stenosis, lumbar region with neurogenic claudication; M41.87 Other forms of scoliosis, lumbosacral region
CPT/HCPCS: 72110

== ENCOUNTER → 2020-09-14 12:44 | Outpatient (CLI) | payer MEDICARE, OTHER, SELFPAY ==
--- NOTE | 2020-09-14 12:45 | DI.RAD.S_ITS ---
PROCEDURE: XR LUMBAR SPINE MIN 4V INDICATIONS: L3 fx follow up TECHNIQUE: 6 views of the lumbar spine were acquired. COMPARISON: [facility], CR, XR LUMBAR SPINE MIN 4V, 06/30/2020, 13:27. FINDINGS: Bones: 5 nonrib-bearing vertebrae are present. Moderate rightward curvature of lumbar spine centered at L3 level is again seen. Diffuse osteopenia is again noted. Previously described superior endplate compression deformity of L3 is again seen, unchanged from prior study. Chronic anterior wedge compression deformity at L1 level is again noted, also unchanged from previous study. No new compression fracture is noted. Degenerative endplate changes are noted throughout lumbar spine. Stable 1 centimeter anterolisthesis of L5 on S1 is again seen unchanged from prior studies. Minimal retrolisthesis at L3-4 level is also unchanged. No suspicious bony lesions. Soft tissues: Overlying bowel gas pattern is normal. No suspicious soft tissue calcifications. Oblique images: There are suggestion of pars defects at L5 level although evaluation is limited due to significant osteopenia and overlying bowel gas. IMPRESSION: 1. Stable appearing anterior wedge compression deformity of L3 not significantly changed from prior study. Chronic anterior wedge compression deformity of L1 also unchanged from prior study. No new compression fracture. 2. Stable anterolisthesis of L5 on S1 and minimal retrolisthesis of L3 on L4. Possible bilateral pars defect at L5 level other evaluation is limited due to significant osteopenia. 3. Degenerative disc disease throughout lumbar spine. Dictated by: Michael Tripp M.D. on 09/14/2020 at 13:20 Approved by: Michael Tripp M.D. on 09/14/2020 at 13:23
== END ==
PROVIDERS: Referring Provider Physical Medicine & Rehabilitation; Visit Provider Physical Medicine & Rehabilitation
DX: S32.030D Wedge compression fracture of third lumbar vertebra, subsequent encounter for fracture with routine healing (principal); S32.010S Wedge compression fracture of first lumbar vertebra, sequela; M43.17 Spondylolisthesis, lumbosacral region; M51.36 Other intervertebral disc degeneration, lumbar region; M41.82 Other forms of scoliosis, cervical region
CPT/HCPCS: 72110; 99213

== ENCOUNTER 2021-03-13 18:52 | Observation (INO) | payer MEDICARE, OTHER, SELFPAY ==
[2021-03-13] VITALS (20 sets, daily range): BP systolic 75–136; BP diastolic 42–61; PULSE 56–70; RESP 16–31; TEMP 36.4–36.7; O2SAT 94–100; BMI 26.2
--- NOTE | 2021-03-13 19:49 | ED.GIBLEED ---
HPI - GI Bleed General Chief complaint: GI Bleed Stated complaint: Rectal Bleeding Time Seen by Provider: 03/13/21 19:44 Source: patient Mode of arrival: Ambulatory Limitations: no limitations History of Present Illness HPI Narrative: 75-year-old male former smoker with a history of hypertension, lumbar stenosis, presents with painless bright red rectal bleeding over the past day or so. He has become a bit dizzy and lightheaded and fatigued. He denies any history of the same. He states he thinks it is largely when he has bowel movements but there is probably a trickle of bleeding at other times as well. He denies chest pain nor fever or chills. His last colonoscopy was years ago and noted a few polyps. He takes no blood thinners but does take aspirin and occasionally NSAIDs. He denies any significant alcohol history. On arrival he has blood pressure in the 70s Related Data Home Medications Medication Instructions Recorded Confirmed ascorbic acid (vitamin C) 500 mg See Rx Instructions PO .COMPLEX 03/30/18 03/14/21 capsule cap aspirin 81 mg chewable tablet 81 mg PO DAILY 03/30/18 03/14/21 (Mariola Chewable Low Dose Aspirin) calcium citrate 200 mg (950 mg) 600 mg PO BID tab 03/30/18 03/14/21 tablet losartan 100 mg tablet 100 mg PO DAILY 03/30/18 03/14/21 mecobalamin (vitamin B12) 1,000 1,000 mcg SL DAILY 03/30/18 03/14/21 mcg disintegrating tablet,sublingual niacin 50 mg tablet 100 mg PO BID tab 03/30/18 03/14/21 omega-3 fatty acids 500 mg capsule 500 mg PO DAILY 03/30/18 03/14/21 simvastatin 40 mg tablet 40 mg PO QPM 03/30/18 03/14/21 timolol 0.5 % eye drops 1 drop OPHTHALMIC (EYE) .HS ml 03/30/18 03/14/21 Previous Rx's Medication Instructions Recorded gabapentin 300 mg capsule See Rx Instructions .ROUTE 07/17/20 .COMPLEX #180 cap celecoxib 200 mg capsule (Celebrex) 200 mg PO DAILY #90 cap 10/26/20 Allergies Allergy/AdvReac Type Severity Reaction Status Date / Time No Known Drug Allergies Allergy Verified 09/14/20 11:56 Review of Systems Review of Systems Narrative: GENERAL: See HPI HEENT: Denies sinus pain, ear pain, sore throat, difficulty swallowing, dizziness. RESPIRATORY: Denies dyspnea, cough, wheezing, hemoptysis, sputum. CARDIOVASCULAR: Denies chest pain, palpitations, orthopnea, edema, GASTROINTESTINAL: See HPI : Denies dysuria, frequency, incontinence, hematuria, urinary retention. MUSCULOSKELETAL: denies weakness, joint pain, or bony pain SKIN: Denies rash, skin lesions, or other NEUROLOGIC: Denies weakness, headache, numbness, change in speech, confusion, seizures, incoordination. PSYCHIATRIC: No concerning psychosocial issues. 12 point review of systems is negative except for those stated above Patient History Medical History Arthritis Cervical spondylosis Closed L3 vertebral fracture Gait instability Pars defect with spondylolisthesis Scoliosis of cervical region due to degenerative disease of spine in adult Weakness Family History Mother Cancer Father Cancer Social History marital status: household members: spouse lives independently: Yes Smoking Status: Former smoker Smokeless tobacco user: other (Cigarettes) quit status: quit date established (Stopped at Age 43) second hand exposure: No alcohol intake: current substance use type: does not use Smoking Status: Former smoker alcohol intake frequency: 0-2 drinks per day Substance Use Type: does not use Exam Narrative Exam Narrative: GENERAL: [75] year old patient appears stated age. Well-developed patient, in mild distress. HEAD: Atraumatic. Normocephalic. EYES: Pupils equal round and reactive. Extraocular motions intact. No scleral icterus. No injection or drainage. ENT: Nose without bleeding, purulent drainage. Throat without erythema, tonsillar hypertrophy or exudate. Airway patent. NECK: Trachea midline. Non tender CARDIOVASCULAR: Regular rate and rhythm without murmurs, gallops, or rubs. RESPIRATORY: Clear to auscultation. Breath sounds equal bilaterally. No wheezes, rales, or rhonchi. GASTROINTESTINAL: Abdomen soft, non-tender, nondistended. RECTAL: Scant bright red bleeding, no hemorrhoid or fissure, nontender, heme-positive EXTREMITIES: No edema or joint tenderness. BACK: Nontender without deformity or crepitance. No flank tenderness. NEURO: AOx3. SKIN: No rash or erythema of visible areas Initial Vital Signs Initial Vital Signs: Vital Signs Temperature 98.0 F 03/13/21 19:26 Pulse Rate 70 03/13/21 19:26 Respiratory Rate 16 03/13/21 19:26 Blood Pressure 75/42 L 03/13/21 19:26 Pulse Oximetry 97 03/13/21 19:26 Course Orders Ordered: ED Orders 03/13/21 19:32 EKG-12 Lead Stat 03/13/21 19:38 Complete Blood Count AUTO DIFF Stat Comprehensive Metabolic Panel Stat Partial Thromboplastin Time Stat Prothrombin Time INR Stat Type and Screen Stat 03/13/21 21:05 Hemoglobin and Hematocrit Stat 03/13/21 22:29 Education, smoking cessation ONGOING 03/13/21 22:45 Basic Metabolic Panel DAILY Complete Blood Count AUTO DIFF DAILY Acetaminophen (Acetaminophen 325 Mg Tablet) 650 mg PO Q6HR PRN PRN Reason: Fever/Mild Pain (1-3) Last Admin: 03/13/21 23:56 Dose: 650 mg Documented by: [email or web address] Aspirin (Aspirin 81 Mg Chew Tab) 81 mg PO DAILY [facility] Atorvastatin Calcium (Atorvastatin 20 Mg Tablet) 20 mg PO BEDTIME NAHUM Bisacodyl (Bisacodyl 5 Mg Tablet) 10 mg PO DAILY PRN PRN Reason: Constipation Last Admin: 03/13/21 23:56 Dose: 10 mg Documented by: [email or web address] Celecoxib (Celecoxib 200 Mg Capsule) 200 mg PO DAILY [facility] Enoxaparin Sodium (Enoxaparin 40 Mg/0.4 Ml Syringe) 40 mg SUBCUT DAILY [facility] Gabapentin (Gabapentin 300 Mg Capsule) 300 mg PO BID [facility] Sodium Chloride (Normal Saline 0.9%) 1,000 mls @ 84 mls/hr IV CONT NAHUM Last Admin: 03/13/21 23:56 Dose: 84 mls/hr Documented by: [email or web address] Naloxone HCl (Naloxone 0.4 Mg/Ml Vial) 0.2 mg IV Q2MIN PRN PRN Reason: Opiate Reversal Non-Formulary Medication (Calcium Citrate) 600 mg PO BID NAHUM Pantoprazole Sodium (Pantoprazole Dr 40 Mg Tablet) 40 mg PO DAILY NAHUM Discontinued Medications Gabapentin (Gabapentin 300 Mg Capsule) 0 mg PO .COMPLEX NAHUM Pantoprazole Sodium (Pantoprazole 40 Mg Vial) 40 mg IV NOW ONE Stop: 03/13/21 22:38 Last Admin: 03/13/21 23:55 Dose: 40 mg Documented by: [email or web address] Consultations Consultation #1: Dr. José (Gen Surgery) happy to consult as needed Consultation #2: Dr. Bartholomew happy to admit on his service Vital Signs Vital signs: Vital Signs - 8 hr 03/13/21 19:26 03/13/21 19:31 03/13/21 19:38 Temperature 98.0 F Pulse Rate 70 62 64 Respiratory Rate 16 Blood Pressure 75/42 L 81/42 L 91/49 L Pulse Oximetry 97 98 98 03/13/21 19:45 03/13/21 20:00 03/13/21 20:15 Temperature Pulse Rate 59 L 62 68 Respiratory Rate Blood Pressure 78/42 L 84/49 L 100/51 L Pulse Oximetry 97 99 100 03/13/21 20:29 03/13/21 20:30 03/13/21 20:45 Temperature Pulse Rate 66 63 63 Respiratory Rate Blood Pressure 94/48 L Pulse Oximetry 98 99 98 03/13/21 21:00 03/13/21 21:01 03/13/21 21:15 Temperature Pulse Rate 59 L 61 60 Respiratory Rate Blood Pressure 116/55 L Pulse Oximetry 99 100 99 03/13/21 21:30 03/13/21 21:45 03/13/21 22:00 Temperature Pulse Rate 58 L 57 L 59 L Respiratory Rate 20 21 30 H Blood Pressure 113/59 L Pulse Oximetry 98 94 98 03/13/21 22:01 03/13/21 22:15 Temperature Pulse Rate 58 L 56 L Respiratory Rate 31 H 17 Blood Pressure 109/55 L Pulse Oximetry 98 97 MDM - GI Bleed Lab Data Result diagrams: 03/13/21 21:05 03/13/21 19:38 Labs: Lab Results 03/13/21 03/13/21 03/13/21 Range/Units 19:38 19:38 19:38 WBC 6.9 (4.5-11.0) X10^3/uL RBC 2.91 L (4.5-5.9) X10^6/uL Hgb 10.4 L (13.5-17.5) g/dL Hct 29.7 L (41-53) % MCV 102.1 H (80-100) fL MCH 35.8 H (26-34) PG MCHC 35.1 (30-36) % RDW 12.0 (11.6-14.8) % Plt Count 195 (150-400) X10^3/uL Neut % (Auto) 55.7 (50-75) % Lymph % (Auto) 33.2 (25-40) % Mcnairy % (Auto) 7.5 (3-14) % Eos % (Auto) 3.2 (2-4) % Baso % (Auto) 0.4 (0-2) % Neut # (Auto) 3900 (6477-2936) /uL Lymph # (Auto) 2300 (6593-0361) /uL Mcnairy # (Auto) 500 (0-900) /uL Eos # (Auto) 200 (0-450) /uL Baso # (Auto) 0 (0-100) /uL PT 11.8 (10.1-12.7) SECONDS INR 1.1 (0.9-1.3) APTT 32 (26.4-36.2) SECONDS Sodium 133 L (137-145) mmol/L Potassium 3.8 (3.4-5.1) mmol/L Chloride 103 (98-107) mmol/L Carbon Dioxide 22 (22-32) mmol/L BUN 25 H (9-20) mg/dL Creatinine 1.06 (0.66-1.25) mg/dL Estimated GFR > 60.0 (>60) mL/min BUN/Creatinine Ratio 23.6 H (6-22) Glucose 131 H (80-110) mg/dL Calcium 9.3 (8.4-10.2) mg/dL Total Bilirubin 0.4 (0.2-1.3) mg/dL AST 22 (17-59) IU/L ALT 13 (<50) IU/L Alkaline Phosphatase 46 (38-126) U/L Total Protein 6.1 L (6.3-8.2) g/dL Albumin 3.8 (3.5-5.0) g/dL Globulin 2.3 (1.7-4.1) g/dL Albumin/Globulin Ratio 1.7 (1.0-2.8) Blood Type Antibody Screen 03/13/21 03/13/21 Range/Units 19:38 21:05 WBC (4.5-11.0) X10^3/uL RBC (4.5-5.9) X10^6/uL Hgb 9.9 L (13.5-17.5) g/dL Hct 28.4 L (41-53) % MCV (80-100) fL MCH (26-34) PG MCHC (30-36) % RDW (11.6-14.8) % Plt Count (150-400) X10^3/uL Neut % (Auto) (50-75) % Lymph % (Auto) (25-40) % Mcnairy % (Auto) (3-14) % Eos % (Auto) (2-4) % Baso % (Auto) (0-2) % Neut # (Auto) (9403-8187) /uL Lymph # (Auto) (5347-8213) /uL Mcnairy # (Auto) (0-900) /uL Eos # (Auto) (0-450) /uL Baso # (Auto) (0-100) /uL PT (10.1-12.7) SECONDS INR (0.9-1.3) APTT (26.4-36.2) SECONDS Sodium (137-145) mmol/L Potassium (3.4-5.1) mmol/L Chloride (98-107) mmol/L Carbon Dioxide (22-32) mmol/L BUN (9-20) mg/dL Creatinine (0.66-1.25) mg/dL Estimated GFR (>60) mL/min BUN/Creatinine Ratio (6-22) Glucose (80-110) mg/dL Calcium (8.4-10.2) mg/dL Total Bilirubin (0.2-1.3) mg/dL AST (17-59) IU/L ALT (<50) IU/L Alkaline Phosphatase (38-126) U/L Total Protein (6.3-8.2) g/dL Albumin (3.5-5.0) g/dL Globulin (1.7-4.1) g/dL Albumin/Globulin Ratio (1.0-2.8) Blood Type A Positive Antibody Screen Negative Urine Dip Bedside Urine Glucose Negative Bedside Urine Bilirubin - Negative Bedside Urine Ketone - Negative Urine Specific [place] 1.010 Bedside Urine Occult Blood - Negative Bedside Urine pH 6.0 Bedside Urine Protein - Negative Bedside Urine Urobilinogen - Negative Bedside Urine Nitrite - Negative Bedside Urine Leukocytes - Negative Esterase MDM Narrative Medical decision making narrative: Given report of large volumes of blood and presenting blood pressure in the 70s patient will be admitted to the hospital on monitored floor with repeat labs. Patient understands and agrees with the plan Discharge Plan Departure Patient Disposition: Admitted as Observation Clinical Impression: Lower gastrointestinal hemorrhage Admit Date/Time: 03/13/21 22:28 Admit Provider: Tacho Bartholomew
[2021-03-13 19:55] LABS: Add Manual Diff / Slide Review NO; Basophils Absolute Auto 0 /uL (0-100); Basophils Percent Auto 0.4 % (0-2); Eosinophils Absolute Auto 200 /uL (0-450); Eosinophils Percent Auto 3.2 % (2-4); Hematocrit 29.7 % (41-53); Hemoglobin 10.4 g/dL (13.5-17.5); Lymphocytes Absolute Auto 2300 /uL (1100-4500); Lymphocytes Percent Auto 33.2 % (25-40); Mean Corpuscular HGB Conc 35.1 % (30-36); Mean Corpuscular Hemoglobin 35.8 PG (26-34); Mean Corpuscular Volume 102.1 fL (80-100); Monocytes Absolute Auto 500 /uL (0-900); Monocytes Percent Auto 7.5 % (3-14); Neutrophils Absolute Auto 3900 /uL (1500-7000); Neutrophils Percent Auto 55.7 % (50-75); Platelet Count 195 X10^3/uL (150-400); Red Blood Cell Count 2.91 X10^6/uL (4.5-5.9); White Blood Cell Count 6.9 X10^3/uL (4.5-11.0)
[2021-03-13 20:02] LABS: Alanine Aminotransferase 13 IU/L (<50); Albumin 3.8 g/dL (3.5-5.0); Albumin Globulin Ratio 1.7 (1.0-2.8); Alkaline Phosphatase 46 U/L (38-126); Aspartate Aminotransferase 22 IU/L (17-59); BUN Creatinine Ratio 23.6 (6-22); Bilirubin Total 0.4 mg/dL (0.2-1.3); Blood Urea Nitrogen 25 mg/dL (9-20); Calcium 9.3 mg/dL (8.4-10.2); Carbon Dioxide 22 mmol/L (22-32); Chloride 103 mmol/L (98-107); Estimated Glomerular Filt Rate > 60.0 mL/min (>60); Globulin 2.3 g/dL (1.7-4.1); Glucose 131 mg/dL (80-110); HEMOLYSIS < 15 (0-50); Potassium 3.8 mmol/L (3.4-5.1); Sodium 133 mmol/L (137-145); Total Protein 6.1 g/dL (6.3-8.2)
[2021-03-13 20:07] LABS: INR 1.1 (0.9-1.3); Prothrombin Time 11.8 SECONDS (10.1-12.7)
[2021-03-13 20:10] LABS: PTT Partial Thromboplastin Tim 32 SECONDS (26.4-36.2)
--- NOTE | 2021-03-13 21:00 | PC.NURSE ---
Pt assisted to bedpan. No stool, only void. Maroon colored residual stool noted on pericare.
[2021-03-13 21:12] LABS: Hematocrit 28.4 % (41-53); Hemoglobin 9.9 g/dL (13.5-17.5)
[2021-03-13 23:39] LABS: COVID19 - ADMIT (NP swab/PCR) Negative (Negative)
[2021-03-13] MEDS: PANTOPRAZOLE 40 MG VIAL IV (23:55)
[2021-03-13] MEDS: ACETAMINOPHEN 325 MG TABLET 650 MG PO (23:56)
[2021-03-13] MEDS: SODIUM CHLORIDE 0.9% 1,000 ML 84 ML IV (23:56)
[2021-03-13] MEDS: BISACODYL 5 MG TABLET 10 MG PO (23:56)
[2021-03-14 03:50] VITALS: BP 108/64; PULSE 60; RESP 16; TEMP 36.2; O2SAT 97
[2021-03-14 05:29] LABS: Add Manual Diff / Slide Review NO; Basophils Absolute Auto 0 /uL (0-100); Basophils Percent Auto 0.5 % (0-2); Eosinophils Absolute Auto 300 /uL (0-450); Eosinophils Percent Auto 5.4 % (2-4); Hematocrit 28.2 % (41-53); Hemoglobin 9.7 g/dL (13.5-17.5); Lymphocytes Absolute Auto 2200 /uL (1100-4500); Mean Corpuscular HGB Conc 34.5 % (30-36); Mean Corpuscular Hemoglobin 35.2 PG (26-34); Monocytes Absolute Auto 500 /uL (0-900); Monocytes Percent Auto 8.5 % (3-14); Neutrophils Absolute Auto 3000 /uL (1500-7000); Neutrophils Percent Auto 49.6 % (50-75); Platelet Count 179 X10^3/uL (150-400); Red Blood Cell Count 2.77 X10^6/uL (4.5-5.9); Red Cell Distribution Width 11.9 % (11.6-14.8); White Blood Cell Count 6.1 X10^3/uL (4.5-11.0)
[2021-03-14 05:55] LABS: BUN Creatinine Ratio 27.8 (6-22); Blood Urea Nitrogen 20 mg/dL (9-20); Calcium 8.7 mg/dL (8.4-10.2); Carbon Dioxide 22 mmol/L (22-32); Chloride 109 mmol/L (98-107); Estimated Glomerular Filt Rate > 60.0 mL/min (>60); Glucose 90 mg/dL (80-110); HEMOLYSIS < 15 (0-50); Potassium 4.1 mmol/L (3.4-5.1); Sodium 137 mmol/L (137-145)
[2021-03-14 07:00] VITALS: BP 115/76; PULSE 63; RESP 18; TEMP 36.9; O2SAT 99
--- NOTE | 2021-03-14 08:45 | PM.HP.1 ---
History of Present Illness History of Present Illness Chief complaint: Rectal Bleeding Narrative: PT presented to ED with 1 day of significant painless BRBPR. Noted first while passing gas then had urgency to move bowels. No hx of previous such episodes. Last colonoscopy 4 years ago wnl scheduled for ten year followup. He suspects this is connected to recent consumption of large amounts of cherries. Admitted for observation based on hypotensive presentation in ED with SBP 75 Hgb around 10. PMH significant for existing well controlled hypertension with losartan. He reports this morning he feels generally fine but tired. He has been NPO with IVF and reported two episodes of darker maroon colored [id number] bloody bowel movements this morning. Still no pain or tenderness. Takes celecoxib and gabapentin for back issues and atorvastatin for lipids. Patient History Medical History Arthritis Cervical spondylosis Closed L3 vertebral fracture Gait instability Pars defect with spondylolisthesis Scoliosis of cervical region due to degenerative disease of spine in adult Weakness Family & Social History Family History Mother Cancer Father Cancer Social History: household members spouse Prior Living Arrangements House lives independently Yes Safety & Behavioral: Feels Safe in Current Yes Environment Been Physically Hurt or No Threatened By a Person Suicidal Ideation Description None Tobacco & Substance use: Smoking Status Former smoker alcohol intake current alcohol intake frequency 0-2 drinks per day Substance Use Type does not use Meds Home Medications and Allergies Home Medications Medication Instructions Recorded Confirmed Type ascorbic acid (vitamin C) 500 mg See Rx Instructions PO .COMPLEX 03/30/18 03/14/21 History capsule cap aspirin 81 mg chewable tablet 81 mg PO DAILY 03/30/18 03/14/21 History (Mariola Chewable Low Dose Aspirin) calcium citrate 200 mg (950 mg) 600 mg PO BID tab 03/30/18 03/14/21 History tablet losartan 100 mg tablet 100 mg PO DAILY 03/30/18 03/14/21 History mecobalamin (vitamin B12) 1,000 1,000 mcg SL DAILY 03/30/18 03/14/21 History mcg disintegrating tablet,sublingual niacin 50 mg tablet 100 mg PO BID tab 03/30/18 03/14/21 History omega-3 fatty acids 500 mg capsule 500 mg PO DAILY 03/30/18 03/14/21 History simvastatin 40 mg tablet 40 mg PO QPM 03/30/18 03/14/21 History timolol 0.5 % eye drops 1 drop OPHTHALMIC (EYE) .HS ml 03/30/18 03/14/21 History gabapentin 300 mg capsule See Rx Instructions .ROUTE 07/17/20 03/14/21 Rx .COMPLEX #180 cap celecoxib 200 mg capsule (Celebrex) 200 mg PO DAILY #90 cap 10/26/20 03/14/21 Rx Allergies Allergy/AdvReac Type Severity Reaction Status Date / Time No Known Drug Allergies Allergy Verified 09/14/20 11:56 Review of Systems Review of Systems Narrative: all systems reviewed and negative except as otherwise documented in this history Exam Vital Signs (past 8 hours): - 03/14/21 03:50 Temperature 97.2 F L Pulse Rate 60 Respiratory Rate 16 Blood Pressure 108/64 Pulse Oximetry 97 Oxygen Delivery Method Room Air Oxygen Flow Rate 0 Const General: cooperative and healthy appearing Resp Effort & Inspection: normal respiratory effort and able to speak in complete sentences Auscultation: clear to auscultation bilaterally Cardio Rate: regular rate Rhythm: regular rhythm Heart Sounds: S1 normal and S2 normal Other: systolic ejection squeak 2+ best heard over the apex GI Inspection: normal to inspection Palpation: soft and no hepatosplenomegaly Percussion: normal to percussion Auscultation: normal bowel sounds Other: no TTP in any quadrant Skin General: pallor Neuro General: patient oriented x3, CN's II-XI intact bilaterally and deep tendon reflexes 2+ bilaterally Extrem General: normal to inspection and full ROM Psych Appearance: grossly normal and well kempt Mental Status: mental status grossly normal Mood: congruent mood Affect: normal affect Attitude: cooperative Thought Process: normal Objective Labs Result Diagrams: 03/14/21 04:30 03/14/21 04:30 Labs: Laboratory Results - last 24 hr 03/13/21 03/13/21 03/13/21 19:38 19:38 19:38 WBC 6.9 RBC 2.91 L Hgb 10.4 L Hct 29.7 L MCV 102.1 H MCH 35.8 H MCHC 35.1 RDW 12.0 Plt Count 195 Neut % (Auto) 55.7 Lymph % (Auto) 33.2 Maries % (Auto) 7.5 Eos % (Auto) 3.2 Baso % (Auto) 0.4 Neut # (Auto) 3900 Lymph # (Auto) 2300 Maries # (Auto) 500 Eos # (Auto) 200 Baso # (Auto) 0 PT 11.8 INR 1.1 APTT 32 Sodium 133 L Potassium 3.8 Chloride 103 Carbon Dioxide 22 BUN 25 H Creatinine 1.06 Estimated GFR > 60.0 BUN/Creatinine Ratio 23.6 H Glucose 131 H Calcium 9.3 Total Bilirubin 0.4 AST 22 ALT 13 Alkaline Phosphatase 46 Total Protein 6.1 L Albumin 3.8 Globulin 2.3 Albumin/Globulin Ratio 1.7 SARS-CoV-2 (PCR) Blood Type Antibody Screen 03/13/21 03/13/21 03/13/21 19:38 21:05 22:40 WBC RBC Hgb 9.9 L Hct 28.4 L MCV MCH MCHC RDW Plt Count Neut % (Auto) Lymph % (Auto) Maries % (Auto) Eos % (Auto) Baso % (Auto) Neut # (Auto) Lymph # (Auto) Maries # (Auto) Eos # (Auto) Baso # (Auto) PT INR APTT Sodium Potassium Chloride Carbon Dioxide BUN Creatinine Estimated GFR BUN/Creatinine Ratio Glucose Calcium Total Bilirubin AST ALT Alkaline Phosphatase Total Protein Albumin Globulin Albumin/Globulin Ratio SARS-CoV-2 (PCR) Negative Blood Type A Positive Antibody Screen Negative 03/14/21 03/14/21 04:30 04:30 WBC 6.1 RBC 2.77 L Hgb 9.7 L Hct 28.2 L MCV 102.0 H MCH 35.2 H MCHC 34.5 RDW 11.9 Plt Count 179 Neut % (Auto) 49.6 L Lymph % (Auto) 36.0 Maries % (Auto) 8.5 Eos % (Auto) 5.4 H Baso % (Auto) 0.5 Neut # (Auto) 3000 Lymph # (Auto) 2200 Maries # (Auto) 500 Eos # (Auto) 300 Baso # (Auto) 0 PT INR APTT Sodium 137 Potassium 4.1 Chloride 109 H Carbon Dioxide 22 BUN 20 Creatinine 0.72 Estimated GFR > 60.0 BUN/Creatinine Ratio 27.8 H Glucose 90 Calcium 8.7 Total Bilirubin AST ALT Alkaline Phosphatase Total Protein Albumin Globulin Albumin/Globulin Ratio SARS-CoV-2 (PCR) Blood Type Antibody Screen Assessment & Plan Assessment & Plan narrative: #Lower GI bleed painless BRBPR evolving into maroon stools. Hemoglobin staying relatively stable. BP also staying stable I am continuing to hold BP meds. Discussed case with Dr. José today she agrees he sounds good for outpt f/u. NPO until lunch, then resume clears as tolerated. May be suitable for outpt f/u if BP holds stable. #hx of hypertension #acute hypotension on presentation holding home losartan 100 #hyperlipidemia continue home atorvastatin. #Degenerative disease of spine continue home celecoxib and gabapentin PCP: [facility] Diet: as above code: full dvt ppx: scds
--- NOTE | 2021-03-14 09:15 | PM.DS.1 ---
History of Present Illness History of Present Illness Chief complaint: Rectal Bleeding Narrative: PT presented to ED with 1 day of significant painless BRBPR. Noted first while passing gas then had urgency to move bowels. No hx of previous such episodes. Last colonoscopy 4 years ago wnl scheduled for ten year followup. He suspects this is connected to recent consumption of large amounts of cherries. Admitted for observation based on hypotensive presentation in ED with SBP 75 Hgb around 10. PMH significant for existing well controlled hypertension with losartan. He reports this morning he feels generally fine but tired. He has been NPO with IVF and reported two episodes of darker maroon colored [id number] bloody bowel movements this morning. Still no pain or tenderness. Takes celecoxib and gabapentin for back issues and atorvastatin for lipids. Discharge Providers Provider Date of admission: 03/13/21 22:28 Discharge Date: 03/14/21 Primary care physician: Tacho Bartholomew MD Consults: 03/13/21 22:37 Consult to General Surgery Routine Comment: Consulting Provider: Karissa José Reason for consultation: GI bleed Has provider been notified: Yes Discharge provider: Tacho Bartholomew MD Summary Hospital Course Discharge Diagnosis: Lower GI bleed Hospital Course: Mr. Noonan did well and his blood pressure remained stable without needing intervention besides IVF. His bleeding stabilized and the blbood he is passing gseems to be old and not fresh. Consultation with Dr. José surgery determined he is suitable for outpt f/u. resuming clears and discharging after lunch. Exam Vital Signs (past 8 hours): - 03/14/21 03:50 Temperature 97.2 F L Pulse Rate 60 Respiratory Rate 16 Blood Pressure 108/64 Pulse Oximetry 97 Oxygen Delivery Method Room Air Oxygen Flow Rate 0 Narrative Exam Narrative: pleasant elder sitting up in bed Const General: cooperative, comfortable and well developed [facility] Head: normal to inspection and atraumatic Eyes General: appearance normal, both eyes and all related structures Resp Other: clear to auscultation bilaterally Cardio Other: normal rate and rhythm S1/S2 wnl GI Other: normal bowel sounds no tenderness all four quadrants Skin Other: less pale than yesterday no rashes or suspicious lesions Neuro General: patient oriented x3, moves all extremities, CN's II-XI intact bilaterally and deep tendon reflexes 2+ bilaterally Extrem General: normal to inspection and full ROM Psych Other: alert oriented x3 affect normal Objective Labs Result Diagrams: 03/14/21 04:30 03/14/21 04:30 Labs: Laboratory Results - last 24 hr 03/13/21 03/13/21 03/13/21 19:38 19:38 19:38 WBC 6.9 RBC 2.91 L Hgb 10.4 L Hct 29.7 L MCV 102.1 H MCH 35.8 H MCHC 35.1 RDW 12.0 Plt Count 195 Neut % (Auto) 55.7 Lymph % (Auto) 33.2 Traverse % (Auto) 7.5 Eos % (Auto) 3.2 Baso % (Auto) 0.4 Neut # (Auto) 3900 Lymph # (Auto) 2300 Traverse # (Auto) 500 Eos # (Auto) 200 Baso # (Auto) 0 PT 11.8 INR 1.1 APTT 32 Sodium 133 L Potassium 3.8 Chloride 103 Carbon Dioxide 22 BUN 25 H Creatinine 1.06 Estimated GFR > 60.0 BUN/Creatinine Ratio 23.6 H Glucose 131 H Calcium 9.3 Total Bilirubin 0.4 AST 22 ALT 13 Alkaline Phosphatase 46 Total Protein 6.1 L Albumin 3.8 Globulin 2.3 Albumin/Globulin Ratio 1.7 SARS-CoV-2 (PCR) Blood Type Antibody Screen 03/13/21 03/13/21 03/13/21 19:38 21:05 22:40 WBC RBC Hgb 9.9 L Hct 28.4 L MCV MCH MCHC RDW Plt Count Neut % (Auto) Lymph % (Auto) Traverse % (Auto) Eos % (Auto) Baso % (Auto) Neut # (Auto) Lymph # (Auto) Traverse # (Auto) Eos # (Auto) Baso # (Auto) PT INR APTT Sodium Potassium Chloride Carbon Dioxide BUN Creatinine Estimated GFR BUN/Creatinine Ratio Glucose Calcium Total Bilirubin AST ALT Alkaline Phosphatase Total Protein Albumin Globulin Albumin/Globulin Ratio SARS-CoV-2 (PCR) Negative Blood Type A Positive Antibody Screen Negative 03/14/21 03/14/21 04:30 04:30 WBC 6.1 RBC 2.77 L Hgb 9.7 L Hct 28.2 L MCV 102.0 H MCH 35.2 H MCHC 34.5 RDW 11.9 Plt Count 179 Neut % (Auto) 49.6 L Lymph % (Auto) 36.0 Traverse % (Auto) 8.5 Eos % (Auto) 5.4 H Baso % (Auto) 0.5 Neut # (Auto) 3000 Lymph # (Auto) 2200 Traverse # (Auto) 500 Eos # (Auto) 300 Baso # (Auto) 0 PT INR APTT Sodium 137 Potassium 4.1 Chloride 109 H Carbon Dioxide 22 BUN 20 Creatinine 0.72 Estimated GFR > 60.0 BUN/Creatinine Ratio 27.8 H Glucose 90 Calcium 8.7 Total Bilirubin AST ALT Alkaline Phosphatase Total Protein Albumin Globulin Albumin/Globulin Ratio SARS-CoV-2 (PCR) Blood Type Antibody Screen [facility] Medical History Arthritis Cervical spondylosis Closed L3 vertebral fracture Gait instability Pars defect with spondylolisthesis Scoliosis of cervical region due to degenerative disease of spine in adult Weakness Family History Mother Cancer Father Cancer Social History marital status: household members: spouse lives independently: Yes Smoking Status: Former smoker Smokeless tobacco user: other (Cigarettes) quit status: quit date established (Stopped at Age 43) second hand exposure: No alcohol intake: current substance use type: does not use Discharge Assessment & Plan Assessment and Plan Assessment: #Lower GI bleed painless BRBPR evolving into maroon stools today. Hemoglobin staying relatively stable. BP also staying stable I am continuing to hold BP meds. Discussed case with Dr. José today she agrees he sounds good for outpt f/u. NPO until lunch, then resume clears as tolerated. #hx of hypertension #acute hypotension on presentation holding home losartan 100 continue to hold on dc wait til f/u with PCP #hyperlipidemia continue home atorvastatin. #Degenerative disease of spine continue home celecoxib and gabapentin PCP: [place] Diet: as above code: full dvt ppx: scds Discharge Plan Discharge Plan Patient Disposition: Home Provider Discharge Comment: discharge after lunch if BP stable and tolerating liquid diet Discharge orders & Medications Prescriptions: Continued gabapentin 300 mg capsule See Rx Instructions .ROUTE .COMPLEX Qty: 180 RF: 3 celecoxib [Celebrex] 200 mg capsule 200 mg PO DAILY Qty: 90 RF: 2 niacin 50 mg tablet 100 mg PO BID RF: 0 simvastatin 40 mg tablet 40 mg PO QPM RF: 0 timolol 0.5 % drops 1 drop ophthalmic (eye) .HS RF: 0 aspirin [Mariola Chewable Aspirin] 81 mg tablet,chewable 81 mg PO DAILY RF: 0 calcium citrate 200 mg (950 mg) tablet 600 mg PO BID RF: 0 omega-3 fatty acids 500 mg capsule 500 mg PO DAILY RF: 0 mecobalamin (vitamin B12) 1,000 mcg tablet,disintegrating 1,000 mcg SL DAILY RF: 0 ascorbic acid (vitamin C) 500 mg capsule See Rx Instructions PO .COMPLEX RF: 0 Discontinued losartan 100 mg tablet 100 mg PO DAILY RF: 0 Follow up/Referrals: Tacho Bartholomew MD [Primary Care Provider] - Diet/Activity/Treatments Diet: Clear Liquid Skin/Wound/Dressing Care Report to your healthcare provider any signs of infection, such as:: unusual drainage and unusual redness Discharge Data Primary Care Provider: Tacho Bartholomew Attending Provider: Tacho Bartholomew
[2021-03-14 09:23] VITALS: PULSE 60; RESP 18; O2SAT 97
[2021-03-14 11:00] VITALS: BP 99/65; PULSE 66; RESP 18; TEMP 36.7; O2SAT 99
[2021-03-14] MEDS: GABAPENTIN 300 MG CAPSULE PO (12:25)
[2021-03-14] MEDS: CELECOXIB 200 MG CAPSULE PO (12:25)
[2021-03-14] MEDS: ASPIRIN 81 MG CHEW TAB PO (12:25)
[2021-03-14 13:25] VITALS: O2SAT 94
--- NOTE | 2021-03-14 14:39 | PC.NURSE ---
discharge to home following extended visit and planning for post-hospital care and follow up with surgeons for potential scope- vss and tolerating liquid diet denies nausea -
--- NOTE | 2021-03-14 16:00 | CM.DANOTE ---
DCP ASSESSMENT: Patient is a 75 year-old male admitted to hospital with rectal bleed. PCP is Tacho Bartholomew. Primary Payer is Medicare and [employer]. MATERIALS ASSOCIATE Student met with patient at bedside he is alert and oriented. Educated patient on role of social work in D/C planning. Patient reported he lives at home with his and is independent with ADL?s at base-line including driving. Patient anticipates D/C home with Sheila providing transportation. PLAN: Anticipate D/C home when medically stable. CM Team to continue to follow patient. CROW Salvador MSW Student Discharge Planning/Care Management CM Discharge Assessment Start: 03/14/21 14:38 Freq: Status: Discharge Protocol: Document 03/14/21 14:38 AL (Rec: 03/14/21 14:39 AL [id number]) Discharge Planning Assessment Assigned Commercial Hvac Technician CROW Montalvo Contact Information Sheila Noonan, [phone] Advance Directives? No History Provided By Patient,Medical Record Has Patient been admitted in last 30 No days? Prior Living Arrangements House Household Members spouse Type of transporation used prior to Drives own vehicle admit Independent with ADL's Yes Is patient alert and oriented? Yes Caregiver for Another No Barriers to Discharge No Discharge Plan Home Transportation Arrangement Sheila will provide transportation Referrals Initiated None needed Whiteboard Updated in Patient Room with Yes name and ext. # of Commercial Hvac Technician Review Status In Process
== END 2021-03-14 14:00 | disposition home or self-care (01) ==
LOC: ED 19:44 → AC 22:28
PROVIDERS: Admitting Provider Family Medicine; Emergency Provider Emergency Medicine; PCP Family Medicine; Referring Provider Emergency Medicine; Visit Provider Family Medicine
CPT/HCPCS: 36415; 80048; 80053; 81003; 85014; 85018; 85025; 85610; 85730; 86850; 86900; 86901; 87635; 93005; 94760; 99284; C9803; G0378; C9113

== ENCOUNTER 2021-03-16 13:28 | Inpatient (IN) | payer MEDICARE, OTHER, SELFPAY ==
[2021-03-13 22:42] VITALS: BMI 26.2
[2021-03-16] VITALS (27 sets, daily range): BP systolic 91–128; BP diastolic 52–66; PULSE 63–94; RESP 14–23; TEMP 36.1–36.9; O2SAT 96–100; BMI 26.0
[2021-03-16 14:04] LABS: Add Manual Diff / Slide Review NO; Basophils Absolute Auto 0 /uL (0-100); Eosinophils Absolute Auto 0 /uL (0-450); Eosinophils Percent Auto 0.6 % (2-4); Lymphocytes Absolute Auto 1400 /uL (1100-4500); Monocytes Absolute Auto 400 /uL (0-900)
[2021-03-16 14:08] LABS: Basophils Percent Auto 0.2 % (0-2); Hemoglobin 7.1 g/dL (13.5-17.5); Lymphocytes Percent Auto 22.5 % (25-40); Mean Corpuscular HGB Conc 34.6 % (30-36); Mean Corpuscular Hemoglobin 35.5 PG (26-34); Mean Corpuscular Volume 102.7 fL (80-100); Neutrophils Absolute Auto 4400 /uL (1500-7000); Neutrophils Percent Auto 70.7 % (50-75); Platelet Count 197 X10^3/uL (150-400); Red Blood Cell Count 2.01 X10^6/uL (4.5-5.9); Red Cell Distribution Width 12.1 % (11.6-14.8); White Blood Cell Count 6.2 X10^3/uL (4.5-11.0)
[2021-03-16 14:09] LABS: Hematocrit 20.6 % (41-53)
[2021-03-16 14:11] LABS: Alanine Aminotransferase 14 IU/L (<50); Alkaline Phosphatase 41 U/L (38-126); Aspartate Aminotransferase 24 IU/L (17-59); BUN Creatinine Ratio 25.7 (6-22); Bilirubin Total 0.3 mg/dL (0.2-1.3); Blood Urea Nitrogen 19 mg/dL (9-20); Calcium 9.3 mg/dL (8.4-10.2); Carbon Dioxide 21 mmol/L (22-32); Chloride 103 mmol/L (98-107); Estimated Glomerular Filt Rate > 60.0 mL/min (>60); Glucose 115 mg/dL (80-110); HEMOLYSIS < 15 (0-50); Potassium 4.3 mmol/L (3.4-5.1); Sodium 133 mmol/L (137-145)
[2021-03-16 14:29] LABS: Creatine Kinase 78 U/L (55-170)
--- NOTE | 2021-03-16 14:40 | ED.GIBLEED ---
HPI - GI Bleed General Chief complaint: GI Bleed Stated complaint: rectal bleeding. worse than the last ER visit Time Seen by Provider: 03/16/21 14:09 Source: patient Mode of arrival: Ambulatory History of Present Illness HPI Narrative: This is a 75-year-old male who returns for bright red rectal bleeding. Patient was seen on the 13 March, he was kept overnight. Patient states he did not receive a transfusion. He was discharged home he did not have any EGD or colonoscopy. Patient states he has began having bleeding again overnight. He sought small amount of bright red blood and then had 9-10 bloody stools from 1:00 a.m. to 9:00 a.m. today. Patient states it was bright red blood at that point. He has felt lightheaded but not had any syncope. He has had some increasing shortness of breath, no chest pain or pressure. No abdominal pain, no back pain. No urinary symptoms. Patient stopped his 2nd blood pressure medication upon discharge on the , he takes a cholesterol medication aspirin 81 mg daily. Denies any surgeries. His PCP is Dr. Bartholomew. Patient denies any allergies to medications. He is accompanied by his at this time. Related Data Home Medications Medication Instructions Recorded Confirmed ascorbic acid (vitamin C) 500 mg See Rx Instructions PO .COMPLEX 03/30/18 03/17/21 capsule cap aspirin 81 mg chewable tablet 81 mg PO DAILY 03/30/18 03/17/21 (Mariola Chewable Low Dose Aspirin) calcium citrate 200 mg (950 mg) 600 mg PO BID tab 03/30/18 03/17/21 tablet mecobalamin (vitamin B12) 1,000 1,000 mcg SL DAILY 03/30/18 03/17/21 mcg disintegrating tablet,sublingual niacin 50 mg tablet 100 mg PO BID tab 03/30/18 03/17/21 omega-3 fatty acids 500 mg capsule 500 mg PO DAILY 03/30/18 03/17/21 simvastatin 40 mg tablet 40 mg PO QPM 03/30/18 03/17/21 timolol 0.5 % eye drops 1 drop OPHTHALMIC (EYE) BID ml 03/30/18 03/17/21 Previous Rx's Medication Instructions Recorded gabapentin 300 mg capsule See Rx Instructions .ROUTE 07/17/20 .COMPLEX #180 cap Allergies Allergy/AdvReac Type Severity Reaction Status Date / Time No Known Drug Allergies Allergy Verified 09/14/20 11:56 Review of Systems Review of Systems ROS Unobtainable: All systems reviewed & are unremarkable except as noted in HPI and below Patient History Medical History Arthritis Cervical spondylosis Closed L3 vertebral fracture Gait instability Pars defect with spondylolisthesis Scoliosis of cervical region due to degenerative disease of spine in adult Weakness Family History Mother Cancer Father Cancer Social History marital status: household members: spouse lives independently: Yes Smoking Status: Former smoker Smokeless tobacco user: other (Cigarettes) quit status: quit date established (Stopped at Age 43) second hand exposure: No alcohol intake: former substance use type: does not use Smoking Status: Former smoker alcohol intake frequency: 0-2 drinks per day Substance Use Type: does not use Exam Narrative Exam Narrative: GENERAL: Alert and oriented x three, well-nourished male in mild distress. Patient does appear pale. HEENT: Head normocephalic, atraumatic, EOMI, pupils reactive, pale conjunctiva, face symmetric, moist mucous membranes NECK: Supple, full range of motion CARDIOVASCULAR: Regular rate and rhythm without murmurs, rubs or gallops. RESPIRATORY: Breath sounds equal bilaterally, no wheezes rales or rhonchi. ABDOMEN: Soft, nontender. Normoactive bowel sounds all 4 quadrants. No guarding or rebound, rigidity, no mass : No CVA tenderness EXTREMITIES: Normal range of motion, no clubbing or edema. Neurovascularly intact NEUROLOGICAL: Cranial nerves II through XII grossly intact. Moving all extremities SKIN: Warm, dry, no petechiae, no rashes or lesions. Initial Vital Signs Initial Vital Signs: Vital Signs Temperature 97.4 F L 03/16/21 13:32 Pulse Rate 94 H 03/16/21 13:32 Respiratory Rate 22 03/16/21 13:32 Blood Pressure 102/54 L 03/16/21 13:32 Course Orders Ordered: Lactated Ringer's (Lactated Ringers) 1,000 mls @ 100 mls/hr IV CONT NAHUM Last Admin: 03/18/21 02:54 Dose: 100 mls/hr Documented by: Infusion: 03/18/21 02:30 Dose: 100 mls/hr Documented by: Admin: 03/17/21 16:30 Dose: 100 mls/hr Documented by: Infusion: 03/17/21 10:57 Dose: 100 mls/hr Documented by: Admin: 03/17/21 00:57 Dose: 100 mls/hr Documented by: KATELYN Naloxone HCl (Naloxone 0.4 Mg/Ml Vial) 0.2 mg IV Q2MIN PRN PRN Reason: Opiate Reversal Pantoprazole Sodium (Pantoprazole 40 Mg Vial) 40 mg IV DAILY NAHUM Last Admin: 03/17/21 08:47 Dose: 40 mg Documented by: CHRISTIANNEFARL Discontinued Medications Pantoprazole Sodium (Pantoprazole 40 Mg Vial) 80 mg IV NOW ONE Stop: 03/16/21 15:22 Last Admin: 03/16/21 16:08 Dose: 80 mg Documented by: FOREST Polyethylene Glycol/Electrolytes ([id number]/Sod Sulf,Bicarb,Cl/Kcl 4,000 Ml Solution) 4,000 ml PO NOW ONE Stop: 03/17/21 09:33 Last Admin: 03/17/21 10:38 Dose: 4,000 ml Documented by: VALERIE Consultations Consultation #1: Dr. Min, consulted and plans to see patient for scope Consultation #2: Dr. Huntley, accepts patient for admission. Vital Signs Vital signs: Vital Signs - 8 hr 03/16/21 13:32 03/16/21 14:59 03/16/21 15:00 Temperature 97.4 F L Pulse Rate 94 H 68 67 Respiratory Rate 22 Blood Pressure 102/54 L 102/52 L 104/56 L Pulse Oximetry 100 99 03/16/21 15:15 Temperature Pulse Rate 70 Respiratory Rate 17 Blood Pressure 106/65 Pulse Oximetry 99 MDM - GI Bleed Lab Data Result diagrams: 03/17/21 11:15 03/17/21 11:15 Labs: Lab Results 03/16/21 03/16/21 03/16/21 Range/Units 13:40 13:40 13:40 WBC 6.2 (4.5-11.0) X10^3/uL RBC 2.01 L (4.5-5.9) X10^6/uL Hgb 7.1 L (13.5-17.5) g/dL Hct 20.6 L* (41-53) % MCV 102.7 H (80-100) fL MCH 35.5 H (26-34) PG MCHC 34.6 (30-36) % RDW 12.1 (11.6-14.8) % Plt Count 197 (150-400) X10^3/uL Neut % (Auto) 70.7 (50-75) % Lymph % (Auto) 22.5 L (25-40) % Edgar % (Auto) 6.0 (3-14) % Eos % (Auto) 0.6 L (2-4) % Baso % (Auto) 0.2 (0-2) % Neut # (Auto) 4400 (0150-8832) /uL Lymph # (Auto) 1400 (6818-0029) /uL Edgar # (Auto) 400 (0-900) /uL Eos # (Auto) 0 (0-450) /uL Baso # (Auto) 0 (0-100) /uL PT (10.1-12.7) SECONDS INR (0.9-1.3) APTT (26.4-36.2) SECONDS Sodium 133 L (137-145) mmol/L Potassium 4.3 (3.4-5.1) mmol/L Chloride 103 (98-107) mmol/L Carbon Dioxide 21 L (22-32) mmol/L BUN 19 (9-20) mg/dL Creatinine 0.74 (0.66-1.25) mg/dL Estimated GFR > 60.0 (>60) mL/min BUN/Creatinine Ratio 25.7 H (6-22) Glucose 115 H (80-110) mg/dL Calcium 9.3 (8.4-10.2) mg/dL Total Bilirubin 0.3 (0.2-1.3) mg/dL AST 24 (17-59) IU/L ALT 14 (<50) IU/L Alkaline Phosphatase 41 (38-126) U/L Total Creatine Kinase (55-170) U/L CK-MB (CK-2) CK-MB (CK-2) Rel Index Troponin I (0.01-0.034) ng/mL Total Protein 6.0 L (6.3-8.2) g/dL Albumin 4.0 (3.5-5.0) g/dL Globulin 2.0 (1.7-4.1) g/dL Albumin/Globulin Ratio 2.0 (1.0-2.8) SARS-CoV-2 (PCR) (Negative) Blood Type A Positive Antibody Screen Negative Crossmatch See Detail 03/16/21 03/16/21 03/16/21 Range/Units 13:40 14:46 15:08 WBC (4.5-11.0) X10^3/uL RBC (4.5-5.9) X10^6/uL Hgb (13.5-17.5) g/dL Hct (41-53) % MCV (80-100) fL MCH (26-34) PG MCHC (30-36) % RDW (11.6-14.8) % Plt Count (150-400) X10^3/uL Neut % (Auto) (50-75) % Lymph % (Auto) (25-40) % Edgar % (Auto) (3-14) % Eos % (Auto) (2-4) % Baso % (Auto) (0-2) % Neut # (Auto) (7177-9161) /uL Lymph # (Auto) (3110-1110) /uL Edgar # (Auto) (0-900) /uL Eos # (Auto) (0-450) /uL Baso # (Auto) (0-100) /uL PT 11.9 (10.1-12.7) SECONDS INR 1.1 (0.9-1.3) APTT 28 (26.4-36.2) SECONDS Sodium (137-145) mmol/L Potassium (3.4-5.1) mmol/L Chloride (98-107) mmol/L Carbon Dioxide (22-32) mmol/L BUN (9-20) mg/dL Creatinine (0.66-1.25) mg/dL Estimated GFR (>60) mL/min BUN/Creatinine Ratio (6-22) Glucose (80-110) mg/dL Calcium (8.4-10.2) mg/dL Total Bilirubin (0.2-1.3) mg/dL AST (17-59) IU/L ALT (<50) IU/L Alkaline Phosphatase (38-126) U/L Total Creatine Kinase 78 (55-170) U/L CK-MB (CK-2) TNP CK-MB (CK-2) Rel Index TNP Troponin I < 0.012 (0.01-0.034) ng/mL Total Protein (6.3-8.2) g/dL Albumin (3.5-5.0) g/dL Globulin (1.7-4.1) g/dL Albumin/Globulin Ratio (1.0-2.8) SARS-CoV-2 (PCR) Negative (Negative) Blood Type Antibody Screen Crossmatch ECG Data Interpretation: Sinus rhythm, left axis deviation, right bundle-branch block. Rate of 68 AR 200 QRS of 146 and QTC of 482. Patient has prior EKG from 03/13/2021 which appears similar. No acute ST changes noted. MDM Narrative Medical decision making narrative: This is a 75-year-old male for rectal bleeding with complaint that was recently here and discharged home after being observed. Patient had plan in place for outpatient colonoscopy. Patient has dropped hemoglobin from 10-9 to 7 over the last several days. Patient is symptomatic and was transfused 2 units. Critical Care Time Critical Care Time Critical Care Time: Yes Total Critical Care Time: 35 Attestation: The high probability of a clinically significant, sudden or life threatening deterioration of the [cardiac] system(s) required my full and direct attention, intervention and personal management. The aggregate critical care time was [] minutes. This time is in addition to time spent performing reported procedures but includes the following: [x] Data Review and interpretation [x] Patient assessment and monitoring of vital signs [x] Documentation [x] Medication orders and management Discharge Plan Departure Patient Disposition: Admitted As Inpatient Clinical Impression: GI bleed, Symptomatic anemia Admit Date/Time: 03/16/21 16:49 Admit Provider: Artemio Huntley
[2021-03-16 14:44] LABS: Troponin I < 0.012 ng/mL (0.01-0.034)
[2021-03-16 15:19] LABS: INR 1.1 (0.9-1.3); Prothrombin Time 11.9 SECONDS (10.1-12.7)
[2021-03-16 15:21] LABS: PTT Partial Thromboplastin Tim 28 SECONDS (26.4-36.2)
[2021-03-16 15:57] LABS: COVID19 - ADMIT (NP swab/PCR) Negative (Negative)
[2021-03-16] MEDS: PANTOPRAZOLE 40 MG VIAL 80 MG IV (16:08)
--- NOTE | 2021-03-16 18:34 | PM.HP.1 ---
History of Present Illness History of Present Illness Date Patient Seen: 03/16/21 Time Patient Seen: 18:35 Date of Onset of Symptoms: 03/14/21 Chief complaint: rectal bleeding. worse than the last ER visit Narrative: Patient is a 75-year-old male who presents for re-evaluation after having been discharged on the for GI bleed. Parent Mayra he was seen and admitted after having what started out as dark red blood and transferred to bright red blood. He was admitted in appeared to be stable. Surgical evaluation felt as if outpatient evaluation would be okay. Patient was discharged home and feeling well. No fevers no chills no nausea no vomiting no abdominal pain. Patient had been doing okay until last night approximately 1:00 a.m. he began having up to 10-12 bowel movements by 9:00 a.m. this morning all bright red blood. No pain. No other changes. Patient began having dizziness lightheadedness and was unable to get up move around in presented to the emergency room. There has been no other change. Last colonoscopy was approximately Patient History Medical History Arthritis Cervical spondylosis Closed L3 vertebral fracture Gait instability Pars defect with spondylolisthesis Scoliosis of cervical region due to degenerative disease of spine in adult Weakness Family & Social History Family History Mother Cancer Father Cancer Social History: household members spouse lives independently Yes Tobacco & Substance use: Smoking Status Former smoker alcohol intake current alcohol intake frequency 0-2 drinks per day Substance Use Type does not use Meds Home Medications and Allergies Home Medications Medication Instructions Recorded Confirmed Type ascorbic acid (vitamin C) 500 mg See Rx Instructions PO .COMPLEX 03/30/18 03/14/21 History capsule cap aspirin 81 mg chewable tablet 81 mg PO DAILY 03/30/18 03/14/21 History ([place] Chewable Low Dose Aspirin) calcium citrate 200 mg (950 mg) 600 mg PO BID tab 03/30/18 03/14/21 History tablet mecobalamin (vitamin B12) 1,000 1,000 mcg SL DAILY 03/30/18 03/14/21 History mcg disintegrating tablet,sublingual niacin 50 mg tablet 100 mg PO BID tab 03/30/18 03/14/21 History omega-3 fatty acids 500 mg capsule 500 mg PO DAILY 03/30/18 03/14/21 History simvastatin 40 mg tablet 40 mg PO QPM 03/30/18 03/14/21 History timolol 0.5 % eye drops 1 drop OPHTHALMIC (EYE) .HS ml 03/30/18 03/14/21 History gabapentin 300 mg capsule See Rx Instructions .ROUTE 07/17/20 03/14/21 Rx .COMPLEX #180 cap celecoxib 200 mg capsule (Celebrex) 200 mg PO DAILY #90 cap 10/26/20 03/14/21 Rx Allergies Allergy/AdvReac Type Severity Reaction Status Date / Time No Known Drug Allergies Allergy Verified 09/14/20 11:56 Review of Systems Review of Systems Narrative: Patient denies any significant review systems other than GI bleed please see history and physical Exam Vital Signs (past 8 hours): - 03/16/21 13:32 03/16/21 14:59 03/16/21 15:00 Temperature 97.4 F L Pulse Rate 94 H 68 67 Respiratory Rate 22 Blood Pressure 102/54 L 102/52 L 104/56 L Pulse Oximetry 100 99 03/16/21 15:15 03/16/21 17:36 03/16/21 17:52 Temperature 98.4 F 98.1 F Pulse Rate 70 80 81 Respiratory Rate 17 17 14 Blood Pressure 106/65 119/57 L 121/58 L Pulse Oximetry 99 Oxygen Delivery Method Room Air Narrative Exam Narrative: Alert elderly male lying in bed no acute distress. HEENT exam shows pale bulbar conjunctiva. Mucous membranes are moist. Neck supple without adenopathy. Lungs are clear. Heart regular rate and rhythm. Abdomen is soft positive bowel sounds completely nontender. Extremities without cyanosis clubbing edema. Neurologic exam is normal. Objective Labs Result Diagrams: 03/16/21 13:40 03/16/21 13:40 Labs: Laboratory Results - last 24 hr 03/16/21 03/16/21 03/16/21 13:40 13:40 13:40 WBC 6.2 RBC 2.01 L Hgb 7.1 L Hct 20.6 L* MCV 102.7 H MCH 35.5 H MCHC 34.6 RDW 12.1 Plt Count 197 Neut % (Auto) 70.7 Lymph % (Auto) 22.5 L [place] % (Auto) 6.0 Eos % (Auto) 0.6 L Baso % (Auto) 0.2 Neut # (Auto) 4400 Lymph # (Auto) 1400 [place] # (Auto) 400 Eos # (Auto) 0 Baso # (Auto) 0 PT INR APTT Sodium 133 L Potassium 4.3 Chloride 103 Carbon Dioxide 21 L BUN 19 Creatinine 0.74 Estimated GFR > 60.0 BUN/Creatinine Ratio 25.7 H Glucose 115 H Calcium 9.3 Total Bilirubin 0.3 AST 24 ALT 14 Alkaline Phosphatase 41 Total Creatine Kinase CK-MB (CK-2) CK-MB (CK-2) Rel Index Troponin I Total Protein 6.0 L Albumin 4.0 Globulin 2.0 Albumin/Globulin Ratio 2.0 SARS-CoV-2 (PCR) Blood Type A Positive Antibody Screen Negative Crossmatch See Detail 03/16/21 03/16/21 03/16/21 13:40 14:46 15:08 WBC RBC Hgb Hct MCV MCH MCHC RDW Plt Count Neut % (Auto) Lymph % (Auto) [place] % (Auto) Eos % (Auto) Baso % (Auto) Neut # (Auto) Lymph # (Auto) [place] # (Auto) Eos # (Auto) Baso # (Auto) PT 11.9 INR 1.1 APTT 28 Sodium Potassium Chloride Carbon Dioxide BUN Creatinine Estimated GFR BUN/Creatinine Ratio Glucose Calcium Total Bilirubin AST ALT Alkaline Phosphatase Total Creatine Kinase 78 CK-MB (CK-2) TNP CK-MB (CK-2) Rel Index TNP Troponin I < 0.012 Total Protein Albumin Globulin Albumin/Globulin Ratio SARS-CoV-2 (PCR) Negative Blood Type Antibody Screen Crossmatch Assessment & Plan Assessment & Plan narrative: GI bleed. Probably lower. Probably diverticular. But with history of black or dark tarry stools will place on PPI. Is currently getting blood we will recheck H&H later tonight. Give more if needed it appears as if he stops at this point. Will consult General surgeons and assume will need colonoscopy before discharge. I do not think he needs EGD but will see what they recommend. Will also hold anti-inflammatory Blood loss anemia. Will need started on iron as discharge. But at this point will be following closely. Clearly GI source. Hypotension. Secondary to significant GI bleed and anemia. Should respond to hydration and blood but will watch carefully. Will hold all medication at this point. Hyperlipidemia. Will continue to hold atorvastatin until discharge home Degenerative disease of the spine will continue gabapentin but hold Celebrex. Code status full. DVT prophylaxis with bleeding will use SCDs. Disposition hopefully will be able to discharge home once were stable.
[2021-03-17] VITALS (35 sets, daily range): BP systolic 62–144; BP diastolic 36–78; PULSE 60–87; RESP 14–20; TEMP 35.9–36.9; O2SAT 93–100
[2021-03-17] MEDS: LACTATED RINGERS 1,000 ML 100 ML IV ×2 (00:57→16:30)
[2021-03-17 02:06] LABS: Hemoglobin 7.1 g/dL (13.5-17.5)
[2021-03-17 02:28] LABS: Hematocrit 20.7 % (41-53)
[2021-03-17] MEDS: PANTOPRAZOLE 40 MG VIAL IV (08:47)
--- NOTE | 2021-03-17 08:57 | P.PN_ITS ---
Subjective Subjective Date Patient Seen: 03/17/21 Time Patient Seen: 08:30 Interval history: Pt still having BRBPR multiple BMs. Hgb stable at 7.1 after 2 Us PRBCs, 4th unit just hanging now. Dr. Min planning to scope after prep possibly tomorrow. Exam Vital Signs (past 8 hours): - 03/17/21 00:58 03/17/21 01:00 03/17/21 02:00 Temperature 97.2 F L 97 F L Pulse Rate 65 65 72 Pulse Rate [Orthostatic Lying] 72 Pulse Rate [Orthostatic Sitting] 85 Pulse Rate [Orthostatic Standing] 87 Respiratory Rate 14 17 Blood Pressure 95/53 L 95/53 L 101/58 L Blood Pressure [Orthostatic Lying] 101/58 L Blood Pressure [Orthostatic Sitting] 94/41 L Blood Pressure [Orthostatic Standing] 82/42 L Pulse Oximetry 93 03/17/21 03:35 03/17/21 03:49 03/17/21 03:57 Temperature 97 F L 97 F L 98.1 F Pulse Rate 66 66 70 Pulse Rate [Orthostatic Lying] Pulse Rate [Orthostatic Sitting] Pulse Rate [Orthostatic Standing] Respiratory Rate 16 16 16 Blood Pressure 98/54 L 98/54 L 107/67 Blood Pressure [Orthostatic Lying] Blood Pressure [Orthostatic Sitting] Blood Pressure [Orthostatic Standing] Pulse Oximetry 96 03/17/21 04:00 03/17/21 04:28 03/17/21 06:00 Temperature 97 F L 98.1 F Pulse Rate 66 62 Pulse Rate [Orthostatic Lying] 66 Pulse Rate [Orthostatic Sitting] 75 Pulse Rate [Orthostatic Standing] 75 Respiratory Rate 16 18 Blood Pressure 93/54 L 110/58 L Blood Pressure [Orthostatic Lying] 123/67 Blood Pressure [Orthostatic Sitting] 78/40 L Blood Pressure [Orthostatic Standing] 66/49 L Pulse Oximetry 96 98 03/17/21 06:09 03/17/21 06:10 03/17/21 06:17 Temperature 98.1 F 98.1 F 98.1 F Pulse Rate 62 62 62 Pulse Rate [Orthostatic Lying] Pulse Rate [Orthostatic Sitting] Pulse Rate [Orthostatic Standing] Respiratory Rate 18 18 18 Blood Pressure 110/58 L 110/58 L 110/58 L Blood Pressure [Orthostatic Lying] Blood Pressure [Orthostatic Sitting] Blood Pressure [Orthostatic Standing] Pulse Oximetry 03/17/21 06:35 03/17/21 06:53 03/17/21 07:00 Temperature 98.1 F 98.0 F 98.0 F Pulse Rate 62 67 67 Pulse Rate [Orthostatic Lying] Pulse Rate [Orthostatic Sitting] 74 Pulse Rate [Orthostatic Standing] 78 Respiratory Rate 18 16 16 Blood Pressure 110/58 L 114/61 114/61 Blood Pressure [Orthostatic Lying] 114/61 Blood Pressure [Orthostatic Sitting] 97/59 L Blood Pressure [Orthostatic Standing] 84/48 L Pulse Oximetry 03/17/21 07:05 03/17/21 08:00 03/17/21 08:51 Temperature 98.1 F 97.1 F L 98.1 F Pulse Rate 78 64 62 Pulse Rate [Orthostatic Lying] Pulse Rate [Orthostatic Sitting] Pulse Rate [Orthostatic Standing] Respiratory Rate 16 16 16 Blood Pressure 97/59 L 115/78 109/70 Blood Pressure [Orthostatic Lying] Blood Pressure [Orthostatic Sitting] Blood Pressure [Orthostatic Standing] Pulse Oximetry 100 Oxygen Delivery Method Room Air Oxygen Flow Rate 0 Narrative Exam Narrative: pleasant elder lying in bed receiving blood greeting me Const General: cooperative, healthy appearing and comfortable HENMT Head: normocephalic and atraumatic Resp Other: good air movement normal auscultation bilaterally Cardio Other: regular rate and rhythm S1 and S2 heard GI Other: soft nontender throughout some additional tympany however positive bowel sounds all four quadrants Skin Other: pale no suspicious lesions Objective Labs Result Diagrams: 03/17/21 01:55 03/16/21 13:40 Labs: Laboratory Results - last 24 hr 03/16/21 03/16/21 03/16/21 13:40 13:40 13:40 WBC 6.2 RBC 2.01 L Hgb 7.1 L Hct 20.6 L* MCV 102.7 H MCH 35.5 H MCHC 34.6 RDW 12.1 Plt Count 197 Neut % (Auto) 70.7 Lymph % (Auto) 22.[address] [place] % (Auto) 6.0 Eos % (Auto) 0.6 L Baso % (Auto) 0.2 Neut # (Auto) 4400 Lymph # (Auto) 1400 [place] # (Auto) 400 Eos # (Auto) 0 Baso # (Auto) 0 PT INR APTT Sodium 133 L Potassium 4.3 Chloride 103 Carbon Dioxide 21 L BUN 19 Creatinine 0.74 Estimated GFR > 60.0 BUN/Creatinine Ratio 25.7 H Glucose 115 H Calcium 9.3 Total Bilirubin 0.3 AST 24 ALT 14 Alkaline Phosphatase 41 Total Creatine Kinase CK-MB (CK-2) CK-MB (CK-2) Rel Index Troponin I Total Protein 6.0 L Albumin 4.0 Globulin 2.0 Albumin/Globulin Ratio 2.0 SARS-CoV-2 (PCR) Blood Type A Positive Antibody Screen Negative Crossmatch See Detail 03/16/21 03/16/21 03/16/21 13:40 14:46 15:08 WBC RBC Hgb Hct MCV MCH MCHC RDW Plt Count Neut % (Auto) Lymph % (Auto) [place] % (Auto) Eos % (Auto) Baso % (Auto) Neut # (Auto) Lymph # (Auto) [place] # (Auto) Eos # (Auto) Baso # (Auto) PT 11.9 INR 1.1 APTT 28 Sodium Potassium Chloride Carbon Dioxide BUN Creatinine Estimated GFR BUN/Creatinine Ratio Glucose Calcium Total Bilirubin AST ALT Alkaline Phosphatase Total Creatine Kinase 78 CK-MB (CK-2) TNP CK-MB (CK-2) Rel Index TNP Troponin I < 0.012 Total Protein Albumin Globulin Albumin/Globulin Ratio SARS-CoV-2 (PCR) Negative Blood Type Antibody Screen Crossmatch 03/17/21 01:55 WBC RBC Hgb 7.1 L Hct 20.7 L* MCV MCH MCHC RDW Plt Count Neut % (Auto) Lymph % (Auto) [place] % (Auto) Eos % (Auto) Baso % (Auto) Neut # (Auto) Lymph # (Auto) [place] # (Auto) Eos # (Auto) Baso # (Auto) PT INR APTT Sodium Potassium Chloride Carbon Dioxide BUN Creatinine Estimated GFR BUN/Creatinine Ratio Glucose Calcium Total Bilirubin AST ALT Alkaline Phosphatase Total Creatine Kinase CK-MB (CK-2) CK-MB (CK-2) Rel Index Troponin I Total Protein Albumin Globulin Albumin/Globulin Ratio SARS-CoV-2 (PCR) Blood Type Antibody Screen Crossmatch [facility] Medical History Arthritis Cervical spondylosis Closed L3 vertebral fracture Gait instability Pars defect with spondylolisthesis Scoliosis of cervical region due to degenerative disease of spine in adult Weakness Family History Mother Cancer Father Cancer Social History marital status: household members: spouse lives independently: Yes Smoking Status: Former smoker Smokeless tobacco user: other (Cigarettes) quit status: quit date established (Stopped at Age 43) second hand exposure: No alcohol intake: former substance use type: does not use Assessment & Plan Assessment & Plan narrative: #Lower GI Bleed: agree probably diverticular. But with history of black or dark tarry stools continue PPI. 4Us of PRBCs. GI consulted Dr. Min plans colonoscopy before discharge. I do not think he needs EGD but will see what they recommend. #Acute blood loss anemia: will need iron on DC, currently continue to track and replenish as needed. #Hypotension: 2/2 significant GI bleed and anemia. continue hydration IV he has been NPO, however this may produce some dilutional anemia. Will hold all BP medication at this point. #Hyperlipidemia. Continue to hold atorvastatin until discharge home #Degenerative disease of the spine will continue gabapentin but hold Celebrex. Code status full. DVT prophylaxis SCDs only Disposition: likely home after scope
--- NOTE | 2021-03-17 09:58 | P.CONS_ITS ---
History of Present Illness Consult details Date Patient Seen: 03/17/21 Time Patient Seen: 09:58 Chief complaint: rectal bleeding. worse than the last ER visit Reason for consult: GI bleed Narrative: 75-year-old man admitted to the hospital for rectal bleeding and anemia. He presented with bright red blood per rectum no significant abdominal pain. At admission HCT 21, hemodynamically stable, receiving blood transfusion. No further blood per rectum since admission. He was admitted to the hospital 2 days ago for similar presentation did not undergo endoscopy at that time. He had prior colonoscopy 4 years ago significant for benign polyps. No history of peptic ulcer disease. No personal or family history of intestinal malignancy. He is not on anticoagulation does take NSAIDs. Meds Home Medications and Allergies Home Medications Medication Instructions Recorded Confirmed Type ascorbic acid (vitamin C) 500 mg See Rx Instructions PO .COMPLEX 03/30/18 03/17/21 History capsule cap aspirin 81 mg chewable tablet 81 mg PO DAILY 03/30/18 03/17/21 History ([place] Chewable Low Dose Aspirin) calcium citrate 200 mg (950 mg) 600 mg PO BID tab 03/30/18 03/17/21 History tablet mecobalamin (vitamin B12) 1,000 1,000 mcg SL DAILY 03/30/18 03/17/21 History mcg disintegrating tablet,sublingual niacin 50 mg tablet 100 mg PO BID tab 03/30/18 03/17/21 History omega-3 fatty acids 500 mg capsule 500 mg PO DAILY 03/30/18 03/17/21 History simvastatin 40 mg tablet 40 mg PO QPM 03/30/18 03/17/21 History timolol 0.5 % eye drops 1 drop OPHTHALMIC (EYE) BID ml 03/30/18 03/17/21 History gabapentin 300 mg capsule See Rx Instructions .ROUTE 07/17/20 03/17/21 Rx .COMPLEX #180 cap Allergies Allergy/AdvReac Type Severity Reaction Status Date / Time No Known Drug Allergies Allergy Verified 09/14/20 11:56 Exam Vital Signs (past 8 hours): - 03/17/21 02:00 03/17/21 03:35 03/17/21 03:49 Temperature 97 F L 97 F L 97 F L Pulse Rate 72 66 66 Pulse Rate [Orthostatic Lying] 72 Pulse Rate [Orthostatic Sitting] 85 Pulse Rate [Orthostatic Standing] 87 Respiratory Rate 17 16 16 Blood Pressure 101/58 L 98/54 L 98/54 L Blood Pressure [Orthostatic Lying] 101/58 L Blood Pressure [Orthostatic Sitting] 94/41 L Blood Pressure [Orthostatic Standing] 82/42 L Pulse Oximetry 93 96 03/17/21 03:57 03/17/21 04:00 03/17/21 04:28 Temperature 98.1 F 97 F L Pulse Rate 70 66 Pulse Rate [Orthostatic Lying] 66 Pulse Rate [Orthostatic Sitting] 75 Pulse Rate [Orthostatic Standing] 75 Respiratory Rate 16 16 Blood Pressure 107/67 93/54 L Blood Pressure [Orthostatic Lying] 123/67 Blood Pressure [Orthostatic Sitting] 78/40 L Blood Pressure [Orthostatic Standing] 66/49 L Pulse Oximetry 96 03/17/21 06:00 03/17/21 06:09 03/17/21 06:10 Temperature 98.1 F 98.1 F 98.1 F Pulse Rate 62 62 62 Pulse Rate [Orthostatic Lying] Pulse Rate [Orthostatic Sitting] Pulse Rate [Orthostatic Standing] Respiratory Rate 18 18 18 Blood Pressure 110/58 L 110/58 L 110/58 L Blood Pressure [Orthostatic Lying] Blood Pressure [Orthostatic Sitting] Blood Pressure [Orthostatic Standing] Pulse Oximetry 98 03/17/21 06:17 03/17/21 06:35 03/17/21 06:53 Temperature 98.1 F 98.1 F 98.0 F Pulse Rate 62 62 67 Pulse Rate [Orthostatic Lying] Pulse Rate [Orthostatic Sitting] Pulse Rate [Orthostatic Standing] Respiratory Rate 18 18 16 Blood Pressure 110/58 L 110/58 L 114/61 Blood Pressure [Orthostatic Lying] Blood Pressure [Orthostatic Sitting] Blood Pressure [Orthostatic Standing] Pulse Oximetry 03/17/21 07:00 03/17/21 07:05 03/17/21 08:00 Temperature 98.0 F 98.1 F 97.1 F L Pulse Rate 67 78 64 Pulse Rate [Orthostatic Lying] Pulse Rate [Orthostatic Sitting] 74 Pulse Rate [Orthostatic Standing] 78 Respiratory Rate 16 16 16 Blood Pressure 114/61 97/59 L 115/78 Blood Pressure [Orthostatic Lying] 114/61 Blood Pressure [Orthostatic Sitting] 97/59 L Blood Pressure [Orthostatic Standing] 84/48 L Pulse Oximetry 100 03/17/21 08:51 03/17/21 09:00 Temperature 98.1 F 98.1 F Pulse Rate 62 62 Pulse Rate [Orthostatic Lying] Pulse Rate [Orthostatic Sitting] Pulse Rate [Orthostatic Standing] Respiratory Rate 16 16 Blood Pressure 109/70 109/70 Blood Pressure [Orthostatic Lying] Blood Pressure [Orthostatic Sitting] Blood Pressure [Orthostatic Standing] Pulse Oximetry 100 Oxygen Delivery Method Room Air Oxygen Flow Rate 0 Narrative Exam Narrative: GENERAL-well developed elderly male, no acute distress HEENT-no scleral icterus, hearing intact NECK-no JVD, trachea midline CVS- regular rate, no peripheral edema RESP-unlabored respiratory effort, no audible wheezing GI-soft, nontender nondistended MSK-no cyanosis or clubbing, extremities without deformity SKIN-warm, dry NEURO-alert and oriented, no focal deficits PYSCH-Appropriate mood and affect Objective Labs Result Diagrams: 03/17/21 01:55 03/16/21 13:40 Labs: Laboratory Results - last 24 hr 03/16/21 03/16/21 03/16/21 13:40 13:40 13:40 WBC 6.2 RBC 2.01 L Hgb 7.1 L Hct 20.6 L* MCV 102.7 H MCH 35.5 H MCHC 34.6 RDW 12.1 Plt Count 197 Neut % (Auto) 70.7 Lymph % (Auto) 22.5 L [place] % (Auto) 6.0 Eos % (Auto) 0.6 L Baso % (Auto) 0.2 Neut # (Auto) 4400 Lymph # (Auto) 1400 [place] # (Auto) 400 Eos # (Auto) 0 Baso # (Auto) 0 PT INR APTT Sodium 133 L Potassium 4.3 Chloride 103 Carbon Dioxide 21 L BUN 19 Creatinine 0.74 Estimated GFR > 60.0 BUN/Creatinine Ratio 25.7 H Glucose 115 H Calcium 9.3 Total Bilirubin 0.3 AST 24 ALT 14 Alkaline Phosphatase 41 Total Creatine Kinase CK-MB (CK-2) CK-MB (CK-2) Rel Index Troponin I Total Protein 6.0 L Albumin 4.0 Globulin 2.0 Albumin/Globulin Ratio 2.0 SARS-CoV-2 (PCR) Blood Type A Positive Antibody Screen Negative Crossmatch See Detail 03/16/21 03/16/21 03/16/21 13:40 14:46 15:08 WBC RBC Hgb Hct MCV MCH MCHC RDW Plt Count Neut % (Auto) Lymph % (Auto) [place] % (Auto) Eos % (Auto) Baso % (Auto) Neut # (Auto) Lymph # (Auto) [place] # (Auto) Eos # (Auto) Baso # (Auto) PT 11.9 INR 1.1 APTT 28 Sodium Potassium Chloride Carbon Dioxide BUN Creatinine Estimated GFR BUN/Creatinine Ratio Glucose Calcium Total Bilirubin AST ALT Alkaline Phosphatase Total Creatine Kinase 78 CK-MB (CK-2) TNP CK-MB (CK-2) Rel Index TNP Troponin I < 0.012 Total Protein Albumin Globulin Albumin/Globulin Ratio SARS-CoV-2 (PCR) Negative Blood Type Antibody Screen Crossmatch 03/17/21 01:55 WBC RBC Hgb 7.1 L Hct 20.7 L* MCV MCH MCHC RDW Plt Count Neut % (Auto) Lymph % (Auto) [place] % (Auto) Eos % (Auto) Baso % (Auto) Neut # (Auto) Lymph # (Auto) [place] # (Auto) Eos # (Auto) Baso # (Auto) PT INR APTT Sodium Potassium Chloride Carbon Dioxide BUN Creatinine Estimated GFR BUN/Creatinine Ratio Glucose Calcium Total Bilirubin AST ALT Alkaline Phosphatase Total Creatine Kinase CK-MB (CK-2) CK-MB (CK-2) Rel Index Troponin I Total Protein Albumin Globulin Albumin/Globulin Ratio SARS-CoV-2 (PCR) Blood Type Antibody Screen Crossmatch Assessment & Plan Assessment and plan (1) Lower gastrointestinal hemorrhage: Status: Acute Assessment & Plan narrative: 75-year-old man readmitted to hospital for GI bleed, likely lower, hemodynamically stable. Recommended that we proceed with endoscopy tomorrow both colonoscopy and esophagoduodenoscopy to evaluate for any intraluminal pathology as well as endoscopic intervention should that be necessary. Technical details of the procedures were discussed with the patient. Procedural risks including bleeding, infection, intestinal perforation, need for further procedure were discussed. His questions have been answered and he is in agreement with this plan. 1. GoLYTELY ordered for today 2. Clear liquid diet today NPO after midnight. 3. Colonoscopy and esophagoduodenoscopy 03/18
[2021-03-17] MEDS: PEG3350/SOD SULF,BICARB,CL/KCL 4,000 ML SOLUTION 4000 ML PO (10:38)
[2021-03-17 11:30] LABS: Add Manual Diff / Slide Review NO; Basophils Absolute Auto 0 /uL (0-100); Basophils Percent Auto 0.3 % (0-2); Eosinophils Absolute Auto 100 /uL (0-450); Eosinophils Percent Auto 2.4 % (2-4); Hematocrit 24.4 % (41-53); Hemoglobin 8.4 g/dL (13.5-17.5); Lymphocytes Absolute Auto 1500 /uL (1100-4500); Lymphocytes Percent Auto 26.6 % (25-40); Mean Corpuscular HGB Conc 34.2 % (30-36); Mean Corpuscular Hemoglobin 32.4 PG (26-34); Mean Corpuscular Volume 94.5 fL (80-100); Monocytes Absolute Auto 400 /uL (0-900); Monocytes Percent Auto 7.6 % (3-14); Neutrophils Absolute Auto 3600 /uL (1500-7000); Neutrophils Percent Auto 63.1 % (50-75); Platelet Count 133 X10^3/uL (150-400); Red Blood Cell Count 2.59 X10^6/uL (4.5-5.9); Red Cell Distribution Width 17.3 % (11.6-14.8); White Blood Cell Count 5.7 X10^3/uL (4.5-11.0)
[2021-03-17 11:40] LABS: BUN Creatinine Ratio 21.2 (6-22); Blood Urea Nitrogen 14 mg/dL (9-20); Calcium 8.3 mg/dL (8.4-10.2); Carbon Dioxide 22 mmol/L (22-32); Chloride 109 mmol/L (98-107); Estimated Glomerular Filt Rate > 60.0 mL/min (>60); Glucose 107 mg/dL (80-110); HEMOLYSIS < 15 (0-50); Potassium 3.8 mmol/L (3.4-5.1); Sodium 134 mmol/L (137-145)
--- NOTE | 2021-03-17 17:11 | CM.DANOTE ---
Patient is a 75 year old male who was admitted on 03/16/21 for Rectal Bleed. Pt has [employer] and [employer] for insurance and his PCP is Dr. Bartholomew. EMR was reviewed. Per MD, pt with recent admission for similar and discharged home and now back with G/I. Bleed and requiring 4 units of blood and hypotensive. Per Surgeon, Recommending proceed with endoscopy tomorrow both colonoscopy and esophagoduodenoscopy to evaluate for any intraluminal pathology as well as endoscopic intervention should that be necessary. Pt's has been bedside and supportive. No bedside assessment at this time due to triage needs and pt requiring surgical intervention tomorrow and then further d/c planning needs will be better identified. Plan: SW to follow after scope with surgeon tomorrow towards determining d/c planning needs and POC. CROW Simpson
--- NOTE | 2021-03-17 19:41 | PC.NURSE ---
Addendum entered by Mey Daniels R.N. 03/17/21 23:02: patient with bloody stool again, denies feeling dizzy or lightheaded. Original Note: Patient has been resting in bed most of the shift. Up a few times to use the BSC. Still c/o dizziness and states its better then it was on admission. Still with low BPs with standing and sitting. Patient almost has finished the golytly. Has had a xL formed BM recently w/out blood noted. Patient has been A&O, calm and cooperative
--- NOTE | 2021-03-17 22:01 | PC.NURSE ---
Addendum entered by Mey Daniels R.N. 03/17/21 23:02: Patient with 7 beat of v-tech while sitting up to the [facility]. bp 103/62, hr 81, rr 18. Patient denies any chest pain, sob or feeling dizzy. Original Note: V-tech: ICU notified this RN that patient went into a 26 run of v-tech at 2133. Patient was sleeping during that time per Verna [employer]. Patient denied any chest pain, sob. He does state at 2115 he had a shaking episode like he was cold that lasted 5-10minutes. VSS (bp 122/68, hhr 67, 100% on RA, RR 17) notified of episode, ordered a magnesium level and to continue monitor the patient.
[2021-03-17 22:27] LABS: Magnesium 1.8 mg/dL (1.6-2.3)
[2021-03-18] VITALS (14 sets, daily range): BP systolic 91–127; BP diastolic 39–82; PULSE 59–77; RESP 14–20; TEMP 35.9–36.8; O2SAT 92–100; BMI 26.0
[2021-03-18] MEDS: LACTATED RINGERS 1,000 ML 100 ML IV ×2 (02:54→18:17)
--- NOTE | 2021-03-18 09:08 | CM.DPNOTE ---
DCP Note Met w/patient and w/ Dr Zarco this morning, medical POC still unfolding, Dr Zarco awaiting results from colonoscopy scheduled today. Introduced role to patient and left contact info for he and his in case any DC needs or concerns arise. Will continue to follow closely for DCP needs JW
[2021-03-18] MEDS: PANTOPRAZOLE 40 MG VIAL IV ×2 (09:46→19:40)
[2021-03-18] MEDS: LACTATED RINGERS 1,000 ML 42 ML IV (12:18)
--- NOTE | 2021-03-18 12:19 | SUR.HOLD ---
Pt brought to opd, slightly unsteady when up. CBC drawn as ordered, results to Dr. Sauceda.
--- NOTE | 2021-03-18 12:24 | PM.PREOP ---
Pre-operative Note Interval Note History & Physical reviewed/Exam performed by Physician: Yes Changes to H&P: No
[2021-03-18 12:32] LABS: Add Manual Diff / Slide Review NO; Basophils Absolute Auto 0 /uL (0-100); Basophils Percent Auto 0.2 % (0-2); Eosinophils Absolute Auto 200 /uL (0-450); Eosinophils Percent Auto 4.1 % (2-4); Lymphocytes Absolute Auto 1500 /uL (1100-4500); Lymphocytes Percent Auto 29.7 % (25-40); Mean Corpuscular HGB Conc 34.3 % (30-36); Mean Corpuscular Hemoglobin 32.7 PG (26-34); Mean Corpuscular Volume 95.4 fL (80-100); Monocytes Absolute Auto 500 /uL (0-900); Monocytes Percent Auto 9.2 % (3-14); Neutrophils Absolute Auto 2900 /uL (1500-7000); Neutrophils Percent Auto 56.8 % (50-75); Platelet Count 122 X10^3/uL (150-400); Red Blood Cell Count 1.97 X10^6/uL (4.5-5.9); Red Cell Distribution Width 17.6 % (11.6-14.8); White Blood Cell Count 5.1 X10^3/uL (4.5-11.0)
[2021-03-18 12:34] LABS: Hematocrit 18.8 % (41-53); Hemoglobin 6.5 g/dL (13.5-17.5)
--- NOTE | 2021-03-18 13:33 | P.OP.ENDO_ITS ---
Operative Date/Time/Diagnoses Date of procedure: 03/18/21 Time of procedure: 13:33 Pre-op diagnosis: GI bleed Post-op diagnosis: other (Upper GI bleed) Procedure & Clinicians Study performed: Esophagoduodenoscopy and colonoscopy Same procedure as scheduled: Yes Indications: GI bleed Surgeon: Krzysztof Min Procedure Notes Procedure in detail: The history and physical was performed/updated and the patient is ASA class is 3 E. The procedure was discussed in detail with the patient. Potential risks complications including infection, bleeding, missed diagnosis, perforation, need for surgery, and were explained. Their questions were answered and informed consent was obtained. Patient placed in left lateral decubitus position. Time out was performed. Procedural sedation was administered by Anesthesia. A bite block was placed. t he scope was inserted into the mouth and advanced through the esophagus and into the stomach. The stomach was notable for gastritis, no active hemorrhage or ulcer. The pylorus was intubated and the duodenum was notable for duodenitis no ulcer or active hemorrhage. The scope was retroflexed within the stomach and there was a large hiatal hernia. The scope was withdrawn into the esophagus the Z line was seen at 40 cm from the incisions. There was no Dooley's esophagitis or masses or strictures. Stomach was desufflated and scope removed. Patient tolerated procedure well. Examination began with a thorough inspection of the perianal area there was no evidence of fissures, fistulae, external hemorrhoids or cutaneous malignancy. The colonoscopy scope was then placed into the anal canal and was advanced to the cecum, which was identified by the ileocecal valve, the appendiceal orifice and the confluence of the taenia. The scope was then slowly withdrawn examining colon thoroughly in all directions, irrigating it of any residual stool. 1. Large volume of clotted blood within the colon extending from rectum to cecum. No active hemorrhage was observed from the colon. There was no flow of fresh blood with through the ileocecal valve. 2. Extensive sigmoid diverticulosis 3. No masses. No polyps were observed however the quality of the preparation was quite poor The patient tolerated the procedure well. They will be discharged once criteria are met. The withdrawl time was 7 minutes. Specimen(s): none sent Complications: none Impression: Upper GI bleed Post-procedure Plan for aftercare: Transfusion and continue Protonix
--- NOTE | 2021-03-18 15:35 | PC.NURSE ---
VSS. A&Ox3. Denies pain. Off of unit at 1130 for scope, back at 1400. 1 unit of packed RBC infusing now. Call light within reach, bed low.
--- NOTE | 2021-03-18 15:59 | PM.PN.1 ---
Subjective Subjective Date Patient Seen: 03/18/21 Time Patient Seen: 08:30 Interval history: Pt feeling ok did have a run on monitors overnight but feeling ok today. Dr. Min will scope at lunch. Exam Vital Signs (past 8 hours): - 03/18/21 08:39 03/18/21 11:51 03/18/21 13:36 Temperature 97.5 F L 97.2 F L 97.5 F L Pulse Rate 67 64 60 Respiratory Rate 16 20 18 Blood Pressure 116/62 101/64 91/39 L Pulse Oximetry 98 100 98 03/18/21 13:40 03/18/21 13:45 03/18/21 13:50 Temperature 97.4 F L Pulse Rate 62 60 60 Respiratory Rate 16 16 16 Blood Pressure 104/56 L 98/51 L 107/49 L Pulse Oximetry 98 97 96 03/18/21 14:00 03/18/21 14:24 03/18/21 14:25 Temperature 98.3 F 97.5 F L 97.4 F L Pulse Rate 61 63 70 Respiratory Rate 14 16 16 Blood Pressure 109/82 127/63 127/79 Pulse Oximetry 96 99 03/18/21 15:25 Temperature 97.6 F Pulse Rate 64 Respiratory Rate 17 Blood Pressure 109/40 L Pulse Oximetry 92 Oxygen Delivery Method Room Air Oxygen Flow Rate 0 Const General: cooperative and healthy appearing [facility] Head: normal to inspection Resp Effort & Inspection: normal respiratory effort and able to speak in complete sentences Auscultation: clear to auscultation bilaterally Cardio Other: regular rate, S1/S2 audible GI Other: soft nontender nondistended normal bowel sounds all four quadrants Skin General: no rashes or lesions noted Other: pallor noted Neuro General: patient alert, patient awake, patient oriented x3, moves all extremities and CN's II-XI intact bilaterally Extrem General: normal to inspection and full ROM Psych Appearance: grossly normal and well kempt Mental Status: mental status grossly normal Objective Labs Result Diagrams: 03/18/21 12:18 03/17/21 11:15 Labs: Laboratory Results - last 24 hr 03/16/21 03/17/21 03/18/21 13:40 22:10 12:18 WBC 5.1 RBC 1.97 L Hgb 6.5 L* Hct 18.8 L* MCV 95.4 MCH 32.7 MCHC 34.3 RDW 17.6 H Plt Count 122 L Neut % (Auto) 56.8 Lymph % (Auto) 29.7 [place] % (Auto) 9.2 Eos % (Auto) 4.1 H Baso % (Auto) 0.2 Neut # (Auto) 2900 Lymph # (Auto) 1500 [place]son # (Auto) 500 Eos # (Auto) 200 Baso # (Auto) 0 Magnesium 1.8 Blood Type A Positive Antibody Screen Negative Crossmatch See Detail [facility] Medical History Arthritis Cervical spondylosis Closed L3 vertebral fracture Gait instability Pars defect with spondylolisthesis Scoliosis of cervical region due to degenerative disease of spine in adult Weakness Family History Mother Cancer Father Cancer Social History marital status: household members: spouse lives independently: Yes Smoking Status: Former smoker Smokeless tobacco user: other (Cigarettes) quit status: quit date established (Stopped at Age 43) second hand exposure: No alcohol intake: former substance use type: does not use Assessment & Plan Assessment & Plan narrative: #Lower GI Bleed: s/p scope with Dr. Min who found no acute source of bleeding. His suspicions is it is coming from above the colon as he found dried blood from cecum to rectum in copious quantity. Extensive diverticulosis noted howver nothing that looked like active bleed source. EGD essentially unrevealing. May need pillcam study. Hgb dipped below 7 today receiving two units PRBCs will recheck H&H after would like to keep him here overnight make sure bleeding is done no further transfusions needed. Ok to resume clears. #Acute blood loss anemia: will need iron on DC, currently continue to track and replenish as needed. #Hypotension: 2/2 significant GI bleed and anemia. continue hydration IV he has been NPO, however this may produce some dilutional anemia. Will hold all BP medication at this point. #Hyperlipidemia. Continue to hold atorvastatin until discharge home #Degenerative disease of the spine will continue gabapentin but hold Celebrex. Code status full. DVT prophylaxis SCDs only Disposition:trend H&H tonight may be suitable for home tomorrow
--- NOTE | 2021-03-18 17:08 | PC.NURSE ---
Addendum entered by Flaquita Youssef R.N. 03/18/21 23:13: Report called to Cindy at [facility] who requires very little information re this patient as states listened to doctor to doctor report. Addendum entered by Flaquita Youssef R.N. 03/18/21 23:03: Ambulance crew here to transport pt to [facility] and then bed assignment. Pt able to walk from bed to ambulance stretcher. Pt's belongings were sent with pt and pt reports has informed spouse of transfer. Record packet provided to ambulance crew as well as report provided to this staff as well. Pt left hospital hemodynamically stable. Addendum entered by Flaquita Youssef R.N. 03/18/21 22:09: Pt agrees to transfer with understanding of rationale after speaking with Dr. Bartholomew via telephone. Restaurant Culinary Manager, Elida, states bed is available and pt notifies spouse via telephone of impending transfer. No stools this evening shift. No further c/o dizziness with movement. Pt has remained bedrest this evening shift. Addendum entered by Flaquita Youssef R.N. 03/18/21 21:24: Dr. Bartholomew phones this hand sign writer to inform transferring pt to [facility]. also spoke with supervisor fine grading, Elida. Per Dr. Bartholomew, discussed this with pt who has multiple questions this hand sign writer cannot answer. Phone call by this hand sign writer to Dr. Bartholomew who agrees to speak with pt via telephone. Call transferred in to patient. Addendum entered by Flaquita Youssef R.N. 03/18/21 18:21: Dr. Bartholomew in to see patient. Pt does admit to slight dizziness when changing positions quickly in bed. Resolves without intervention. Addendum entered by Flaquita Youssef R.N. 03/18/21 18:15: Blood transfusion completed. Pt was provided with general diet as ordered and has great interest in eating this. Lab in to draw blood one hour post infusion. Original Note: Pt awake, alert resting quietly in bed eating jello. Unit of blood infusing to left hand iv site without difficulty. Pt denies nausea and admits to twinge of pain LLQ. Pt discounts this as nothing. Call to lab to request blood draw @ 1800 one hour following infusion of blood. Tele in place. Pt follows commands appropriately.
[2021-03-18 17:57] LABS: Add Manual Diff / Slide Review NO; Basophils Absolute Auto 0 /uL (0-100); Basophils Percent Auto 0.2 % (0-2); Eosinophils Absolute Auto 300 /uL (0-450); Eosinophils Percent Auto 3.8 % (2-4); Hematocrit 26.5 % (41-53); Hemoglobin 9.1 g/dL (13.5-17.5); Lymphocytes Absolute Auto 2200 /uL (1100-4500); Lymphocytes Percent Auto 27.2 % (25-40); Mean Corpuscular HGB Conc 34.5 % (30-36); Mean Corpuscular Volume 92.6 fL (80-100); Monocytes Absolute Auto 600 /uL (0-900); Neutrophils Absolute Auto 5000 /uL (1500-7000); Neutrophils Percent Auto 61.8 % (50-75); Platelet Count 127 X10^3/uL (150-400); Red Blood Cell Count 2.86 X10^6/uL (4.5-5.9); Red Cell Distribution Width 16.7 % (11.6-14.8); White Blood Cell Count 8.1 X10^3/uL (4.5-11.0)
[2021-03-18] MEDS: OCTREOTIDE 100 MCG/ML VIAL 50 MCG IV (19:35)
[2021-03-18] MEDS: FUROSEMIDE 40 MG/4 ML VIAL IV (19:41)
[2021-03-18 20:07] LABS: Magnesium 1.7 mg/dL (1.6-2.3)
[2021-03-18] MEDS: TIMOLOL 0.5% OPHTH 1 DROPS EYE-RIGHT (21:53)
--- NOTE | 2021-03-19 14:00 | P.DS_ITS ---
History of Present Illness History of Present Illness Date Patient Seen: 03/18/21 Time Patient Seen: 14:00 Chief complaint: rectal bleeding. worse than the last ER visit Discharge Providers Provider Date of admission: 03/16/21 16:49 Discharge Date: 03/18/21 Primary care physician: Tacho Bartholomew MD Consults: 03/16/21 18:27 Consult to General Surgery Routine Comment: Consulting Provider: Krzysztof Min Reason for consultation: gi bleed Discharge provider: Tacho Bartholomew MD Summary Hospital Course Discharge Diagnosis: GI bleed, acute Hospital Course: Mr Noonan represented with [facility] after a previous admission for the same complaint ofver the weekend. He was foudn to be acutely anemic this time however adn required trasnfusion. After 4 units of lbood he initially st abilized however he required 2 more units by the time he was scoped by Dr. Min who found blood through the colon and no sign of bleeding on EGD, indicating a small bowel source most likely. Impressed by the recurrent nature of this bleed and our lack of resources for management transfer to [facility] was initiated where he was accepted by their stepdown unit. He remained in relatively stable condition after last xfusion wtih Hgb above 9. Status at Discharge Cognitive/behavioral status at discharge: oriented Functional status at discharge: independent ambulation Overall status at discharge: patient is progressing back to baseline Exam Vital Signs (past 8 hours): Oxygen Delivery Method Room Air Oxygen Flow Rate 0 Const General: cooperative, healthy appearing and comfortable HENOH Head: normal to inspection and normocephalic Eyes General: appearance normal, both eyes and all related structures Resp Effort & Inspection: normal respiratory effort and able to speak in complete sentences Auscultation: clear to auscultation bilaterally Cardio Rate: regular rate Rhythm: regular rhythm GI Inspection: normal to inspection Palpation: soft, No firm and No guarding Percussion: normal to percussion Auscultation: hyperactive bowel sounds Skin General: no rashes or lesions noted and pallor Neuro General: patient alert, patient awake, patient oriented x3, tone normal, moves all extremities and CN's II-XI intact bilaterally Extrem General: normal to inspection and full ROM Psych Appearance: grossly normal and well kempt Mental Status: mental status grossly normal Objective Labs Result Diagrams: 03/18/21 17:50 03/17/21 11:15 Labs: Laboratory Results - last 24 hr 03/16/21 03/18/21 03/18/21 13:40 17:50 17:50 WBC 8.1 D RBC 2.86 L Hgb 9.1 L Hct 26.5 L MCV 92.6 MCH 32.0 MCHC 34.5 RDW 16.7 H Plt Count 127 L Neut % (Auto) 61.8 Lymph % (Auto) 27.2 [place] % (Auto) 7.0 Eos % (Auto) 3.8 Baso % (Auto) 0.2 Neut # (Auto) 5000 Lymph # (Auto) 2200 [place] # (Auto) 600 Eos # (Auto) 300 Baso # (Auto) 0 Magnesium 1.7 Blood Type A Positive Antibody Screen Negative Crossmatch See Detail [facility] Medical History Arthritis Cervical spondylosis Closed L3 vertebral fracture Gait instability Pars defect with spondylolisthesis Scoliosis of cervical region due to degenerative disease of spine in adult Weakness Family History Mother Cancer Father Cancer Social History marital status: household members: spouse lives independently: Yes Smoking Status: Former smoker Smokeless tobacco user: other (Cigarettes) quit status: quit date established (Stopped at Age 43) second hand exposure: No alcohol intake: former substance use type: does not use Discharge Assessment & Plan Assessment and Plan Plan of Treatment: #Lower GI Bleed: s/p scope with Dr. Min who found no acute source of bleeding on colonoscopy or EGD. His suspicions is it is coming from above the colon as he found dried blood from cecum to rectum in copious quantity suggesting bleeding is coming from above the cecum but below the stomach. Extensive diverticulosis noted however nothing that looked like active bleed source. EGD essentially unrevealing. May need pillcam study. Hgb dipped intraoperatively so he received 2 units PRBCs with stable H&H after. It became evident that he was at continued risk for bleeding and we were approaching the limits of what we can accomplish at this facility. I contacted [facility] for transfer and he was accepted pending a bed. Protonix, octreotide. #Acute blood loss anemia: will need iron on DC, currently continue to track and replenish as needed. #Hypotension: 2/2 significant GI bleed and anemia. continue hydration IV he has been NPO, however this may produce some dilutional anemia. Held all BP medi cation. #Hyperlipidemia. Continue to hold atorvastatin until discharge home #Degenerative disease of the spine will continue gabapentin but hold Celebrex. Code status full. DVT prophylaxis SCDs only Disposition:transfer to Discharge Plan Discharge Plan Patient Disposition: [facility] Other facility: [facility] Discharge orders & Medications Prescriptions: No Action gabapentin 300 mg capsule See Rx Instructions .ROUTE .COMPLEX Qty: 180 RF: 3 niacin 50 mg tablet 100 mg PO BID RF: 0 simvastatin 40 mg tablet 40 mg PO QPM RF: 0 timolol 0.5 % drops 1 drop ophthalmic (eye) BID RF: 0 aspirin [Mariola Chewable Aspirin] 81 mg tablet,chewable 81 mg PO DAILY RF: 0 calcium citrate 200 mg (950 mg) tablet 600 mg PO BID RF: 0 omega-3 fatty acids 500 mg capsule 500 mg PO DAILY RF: 0 mecobalamin (vitamin B12) 1,000 mcg tablet,disintegrating 1,000 mcg SL DAILY RF: 0 ascorbic acid (vitamin C) 500 mg capsule See Rx Instructions PO .COMPLEX RF: 0 Follow up/Referrals: Tacho Bartholomew MD [Primary Care Provider] - Diet/Activity/Treatments Diet: Clear Liquid Discharge Data Primary Care Provider: Tacho Bartholomew
== END 2021-03-18 23:00 | disposition short-term general hospital (02) | DRG 378 ==
LOC: ED 15:55 → AC 16:50
PROVIDERS: Anesthesiology; Student in an Organized Health Care Education/Training Program; Surgery; Admitting Provider Family Medicine; Emergency Provider Emergency Medicine; PCP Family Medicine; Referring Provider Emergency Medicine; Visit Provider Family Medicine
PROC: 0DJD8ZZ Inspection of Lower Intestinal Tract, Via Natural or Artificial Opening Endoscopic (ICD-10-PCS; CPT 45378; principal; 2021-03-18 12:15)
DX: K92.2 Gastrointestinal hemorrhage, unspecified (principal); D62 Acute posthemorrhagic anemia; E78.5 Hyperlipidemia, unspecified; M19.09 Primary osteoarthritis, other specified site; Z87.891 Personal history of nicotine dependence; Z20.822 Contact with and (suspected) exposure to COVID-19; K57.90 Diverticulosis of intestine, part unspecified, without perforation or abscess without bleeding; K29.70 Gastritis, unspecified, without bleeding; K29.80 Duodenitis without bleeding
CPT/HCPCS: 36415; 36430; 43235; 45378; 80048; 80053; 81003; 82550; 83735; 84484; 85014; 85018; 85025; 85610; 85730; 86850; 86900; 86901; 87635; 93005; 94760; 96374; 99232; 99284; 99285; 99291; C9803; G0378; P9016; C9113; J1940; J2354; J2704; J3010

== ENCOUNTER → 2021-12-06 15:47 | Outpatient (CLI) | payer MEDICARE, OTHER, SELFPAY ==
[2021-03-16 19:41] VITALS: BMI 26.0
--- NOTE | 2021-12-06 | DI.ECHO.S_ITS ---
[facility] +---------+ [facility] +---------+ : : [address] : [address] : : : : [id number] : : : : Phone: [phone]+ Echocardiogram Report + + :Name: BRENDA XIE Study Date: 12/06/2021 Height: 68 in : [id number] ReadingLocation: Weight: 166 lb : : Gender: Male BSA: 1.9 m2 : :: 1945 Age: 76 yrs BP: 144/78 mmHg: :Reason For Study: MURMUR : :Ordering Physician: KIRAN, : :PRINCE Mcgee Performed By: Alejandra Machado : :Referring: PRINCE BECK : + + Interpretation Summary Moderate concentric left ventricular hypertrophy with ejection fraction 50- 55%. The left atrium is severely dilated. The right atrium is moderately dilated. Critically severe aortic stenosis. Mild aortic regurgitation. Moderate mitral annular calcification. Moderate mitral regurgitation. Mild tricuspid regurgitation. The right ventricular systolic pressure is estimated to be at least 46 mmHg based on an estimated right atrial pressure of 3 mm Hg. Procedure: A two-dimensional transthoracic echocardiogram with color flow and Doppler was performed. The study quality was technically adequate. There is no prior echocardiogram noted for this patient. The heart rate ranged between 60-63 bpm during the study. Left Ventricle: The left ventricle is normal in size. There is moderate concentric left ventricular hypertrophy. The ejection fraction is estimated to be 50-55%. There is a mild dyssynchronous contraction pattern, consistent with a conduction abnormality. There are no other obvious focal wall motion abnormalities. Diastolic function could not be accurately assessed due to confounding valvular disease. Right Ventricle: The right ventricle is normal in size and function. Atria: The left atrium is severely dilated. The right atrium is moderately dilated. There is no Doppler evidence for an interatrial shunt. Mitral Valve: The mitral valve leaflets are mildly calcified. There is moderate mitral annular calcification. The mitral valve mean gradient is 1.6 mmHg. There is moderate mitral regurgitation. Aortic Valve: The aortic valve is heavily calcified. There is severely reduced leaflet mobility. There is critically severe aortic stenosis. The peak aortic velocity is 5.6 m/sec. The aortic valve mean gradient is 82 mmHg. The calculated aortic valve area is 0.48 cm2. There is mild aortic regurgitation. Tricuspid Valve: The tricuspid valve leaflets are thickened and/or calcified, but open well. There is mild tricuspid regurgitation. The right ventricular systolic pressure is estimated to be at least 46 mmHg based on an estimated right atrial pressure of 3 mm Hg. Pulmonic Valve: The pulmonic valve is not well visualized. There is mild to moderate pulmonic regurgitation. Great Vessels: The aortic root is normal size. The ascending aorta could not be visualized. The IVC is of normal diameter and collapses greater than 50% with a sniff. This suggests a low right atrial pressure of 3 mm Hg. Pericardium/ Pleura There is no pericardial effusion. There is no pleural effusion. MMode/2D Measurements & Calculations LVIDd: 5.2 cm LVOT diam: 2.2 cm LVIDs: 3.7 cm Ao root diam: 3.8 cm FS: 28.7 % Ao Arch Diam (Prox Trans): 3.1 cm IVSd: 1.6 cm LVPWd: 1.4 cm LV parra. diameter/BSA (cm/m^2): 2.7 LV sys. diameter/BSA (cm/m^2): 2.0 LA A2 area: 36.9 cm2 RA long axis: 5.6 cm LA A4 area: 37.3 cm2 RA area: 22.4 cm2 LA length (vol): 7.2 cm RA vol: 76.4 ml LA vol: 162.8 ml RA : 40.5 ml/m2 LA vol index: 86.2 ml/m2 IVC diam: 1.4 cm RVD1 (basal): 3.8 cm RVD2 (mid): 3.5 cm TAPSE: 2.0 cm Doppler Measurements & Calculations Ao V2 max: 562.3 cm/sec LVOT Max Phil: 68.6 cm/sec Ao V2 mean: 407.3 cm/sec LV V1 max P.9 mmHg Ao max P.2 mmHg LV V1 VTI: 16.9 cm Ao mean P.6 mmHg DENISSE(I,D): 0.53 cm2 Ao V2 VTI: 124.5 cm DENISSE(V,D): 0.48 cm2 sev ratio: 0.14 DENISSE indexed to BSA (cm^2/m^2): 0.28 AI P1/2t: 797.1 msec AI dec slope: 148.6 cm/sec2 MV E max phil: 110.7 cm/sec TR max phil: 327.5 cm/sec MV A max phil: 39.2 cm/sec TR max P.9 mmHg MV E/A: 2.8 PA pr(Accel): 43.0 mmHg Med Peak E' Phil: 2.7 cm/sec E/E' med: 40.6 Lat Peak E' Phil: 6.8 cm/sec E/E' lat: 16.3 E/e' average: 28.4 MV dec time: 0.27 sec MVA(VTI): 2.2 cm2 MR ERO: 0.13 cm2 MV V2 mean: 56.6 cm/sec MR PISA: 2.2 cm2 MV mean P.6 mmHg MR flow rate: 79.6 cm3/sec MV V2 VTI: 29.5 cm MR PISA radius: 0.59 cm SV(LVOT): 66.3 ml Electronically signed by: Quin Terrell on Reading Physician:12/06/2021 06:00 PM
== END ==
PROVIDERS: Family Provider Family Medicine; PCP Family Medicine; Referring Provider Family Medicine; Visit Provider Family Medicine
DX: R01.1 Cardiac murmur, unspecified (principal); I08.3 Combined rheumatic disorders of mitral, aortic and tricuspid valves
CPT/HCPCS: 93306

== ENCOUNTER 2021-12-16 14:30 | Outpatient (RCR) | payer MEDICARE, OTHER, SELFPAY ==
[2021-03-16 19:41] VITALS: BMI 26.0
--- NOTE | 2021-10-27 16:24 | PT.OIE ---
Current Diagnoses Otalgia, unspecified ear (10/27/21) Unspecified temporomandibular joint disorder, unspecified side (10/27/21) Abnormal posture (10/27/21) Past Medical History (Last Reviewed 03/17/21 @ 10:02 by Krzysztof Min MD) Arthritis Cervical spondylosis Closed L3 vertebral fracture Gait instability Pars defect with spondylolisthesis Scoliosis of cervical region due to degenerative disease of spine in adult Weakness Visit Care Team Role Provider Type Tacho Bartholomew MD Family Provider Physician Primary Care Provider Specialty: Family Practice Address: [address] [place] [address], [facility] Email: [email or web address] David Echevarria MD Attending Provider Physician Referring Provider Specialty: Ear, Nose, Throat Address: [address] [place] [address], [address] Email: [email or web address] Physical Therapy Initial Evaluation PT-OP-A Visit Information Start: 10/26/21 17:45 Freq: Status: Active Protocol: Document 10/27/21 10:34 [facility] (Rec: 10/27/21 13:09 [facility] [id number]) Out-Patient Physical Therapy Visit Information Visit Information Visit Type Initial Evaluation Visit Note 09/20 Visit Start Time 11:19 Visit Stop Time 12:06 Total Visit Minutes 47 Visit Number 1 Number of TECHNICIAN [employer] Visits 0 PT-OP-B Current Condition Start: 10/26/21 17:45 Freq: Status: Active Protocol: Document 10/27/21 10:34 [facility] (Rec: 10/27/21 13:09 [facility] [id number]) Current Condition History of Current Condition Onset Date over 1 year Current Complaints L ear History of Current Condition Pt reports L ear pain that he went to the MD for and was referred to Dr. Echevarria. He was given 2 hearing tests and multiple exams and he couldn't find anything wrong. He went to the dentist and had a tooth pulled and it improved it about 50% less than 2 months ago. Pt reports there is a tooth on the R side that will need a crown replaced and a partial cap came off one on L side and there is another that they may have to pull (he is unsure why). Pt is unsure how they will decide it will need to be pulled.He feels like it is plugged up like when [place] the [place] all the time jnow and sometimes can relieve it by pushign on ear. Pt hurts and echos when he talks but not as much of a problem when others talks. Pt reprots he has a history of neck and back problems all the way to his tailbone. It has been tolerable. He sees a chiro regularly and that helps to manage his back and neck pain and has had shots in the past to help manage that. Chiro has tried one adjustment to jaw region and that did not help w/the pain. Pt reports the L ear pain is with him for about 2/3 of the day. It does not give him trouble at night and it is gone before he goes to bed. Comes on shortly after he gets up. He doesn't notice it in the middle of the night when he gets up to go to the bathroom. He has had a recent hearing test and L>R has nominally worse hearing. Last week he fell d/t turning and reaching backwards, and landed face down onto his chainsaw and he heard pops. It hurts to take a deep breath or sneeze. Pt reports he gets dizziness occasionally unsure what brings it on. Has not passed out. Reports he has been doing exercises recenty including sit<>stands. Pt reports he has goten AUGUSTE lately over the last 2-3 months not daily but occasional. AUGUSTE at temporal region. He thinks the AUGUSTE may occur when the ear is worse. AUGUSTE when he gets them get ot be about 7-8/10. Someone talking loud can cause sharp pain into the ear. Treatment Goals Patient/Caregiver Goals get rid of ear pain. PT-OP-C Subjective Start: 10/26/21 17:45 Freq: Status: Active Protocol: Document 10/27/21 10:34 [facility] (Rec: 10/27/21 13:09 [facility] [id number]) OP-PT Pain Assessment Location L ear pain Pain Location Details L ear Description Sharp Description- Other muffled, echo, plugged Frequency Daily Other Pain Aggravating Factors talking, loud noises/certain pitches Pain Alleviating Factors Sitting Other Pain Alleviating Factors press on ear PT-OP-F Manual Assessment Start: 10/26/21 17:45 Freq: Status: Active Protocol: Document 10/27/21 10:34 [facility] (Rec: 10/27/21 13:09 [facility] [id number]) Manual Assessments Soft Tissue Assessment Soft Tissue Mobility Assessment tightness and tenderness to L> R temporalis, masseter, digastric, L post and inf jaw, SCM Joint Mobility Assessment Joint Mobility Assessment jaw protrudes fwd in socket w/ opening L>R and roel post w/ R w/closing PT-OP-J Posture/Palpation/Skin Start: 10/26/21 17:45 Freq: Status: Active Protocol: Document 10/27/21 10:34 [facility] (Rec: 10/27/21 13:09 [facility] [id number]) Posture Evaluation Comments Posture Comments fwd rounded shoulders & fwd neck, jaw deviated slightly L PT-OP-K Range of Motion Start: 10/26/21 17:45 Freq: Status: Active Protocol: Document 10/27/21 10:34 [facility] (Rec: 10/27/21 13:09 [facility] [id number]) Cervical Spine Range of Motion Cervical Spine Active Degrees Flexion 34 Extension 33 Rotation Left 51 Rotation Right 46 Lateral Flexion Left 17 Lateral Flexion Right 20 Comments no change w/ear plug feeling TMJ Range of Motion Jaw Openning Jaw Openning (mm) 40 Comments Comments jaw deviation sliglty greater to R but no pain; noted pain after 3x jaw opening w/closing jaw PT-OP-L Special Tests Start: 10/26/21 17:45 Freq: Status: Active Protocol: Document 10/27/21 10:34 [facility] (Rec: 10/27/21 13:09 [facility] [id number]) Special Tests Cervical Spine Special Tests Spurling's Test Test Results neg Alar Ligament Test Results neg PT-OP-Q Treatments Start: 10/26/21 17:45 Freq: Status: Active Protocol: Document 10/27/21 10:34 [facility] (Rec: 10/27/21 13:09 [facility] [id number]) Therapeutic Exercises Sitting Exercises rocabado Sitting Exercise Name 6x6 minus diaphramatic breaths Self-Care/Home Management Treatment Education Other Education edu on importance of posture for jaw position, edu re: connection anatomically between ear pain and jaw/ cervical vertebrae, edu re: calling re: fall onto chainsaw and rib pain PT-OP-T Assessment and Plan Start: 10/26/21 17:45 Freq: Status: Active Protocol: Document 10/27/21 10:34 [facility] (Rec: 10/27/21 13:09 [facility] [id number]) Physical Therapy Assessment Rehab Potential Rehabilitation Potential Good Evaluation Complexity Number of Personal Factors/Comorbidities 3 or More Number of Body Systems Impaired 4 or More Clinical Presentation at Evaluation Stable Impairments Impairments Activity Tolerance,Functional Mobility,Pain,Posture,ROM,Soft Tissue Mobility Goals ear pain Short Term Goal (STG) pt will report a further 50% reduction in muffling, pain, and clogged symptoms in L ear. STG Duration 11/24/21 Mold Laminator Goal (LTG) Pt will improve to having no more L ear pain, muffling, or clogged feeling. LTG Duration 12/25/21 jaw opening Group Home Goal (LTG) Pt will be able to open/close jaw w/o inc ear pain. LTG Duration 12/25/21 Assessment Summary Assessment Pt presents w/L ear pain for the over the past year w/mult tests being done by ENT w/o known cause. He has history of chronic cervical and lumbar pain which he manages w/ chiropractic, but that has not changed his ear pain. He has some dental issues and had a 50% improvement w/ear pain after tooth removal. 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 He has cervical restrictions also. He would benefit from PT to work on neck mobility, jaw mobility and posture in order to dec instances of L ear pain and AUGUSTE . Physical Therapy Plan Frequency and Duration Frequency of Treatment 1-2x/week Duration of Treatment 2 months Plan of Care Start Date 10/27/21 Plan of Care End Date 12/25/21 Therapeutic Interventions Therapeutic Interventions Home Exercise Program,Joint Mobilizations,Manual Therapy, Neuromuscular Re-education, Patient/Caregiver Education, Self-Care/Home Management,Soft Tissue Mobilization,Taping, Therapeutic Activities, Therapeutic Exercises Modalities Cold Pack/Ice Massage,Hot Packs Next Visit Focus/Plan Next Note Type Treatment Note Next Visit Plan review exercises, STM to cranium & jaw region, VAT, Jaw mobs
--- NOTE | 2021-10-27 16:25 | PT.OPPOC ---
Physical, Occupational & Speech Therapy At [facility] Current Diagnoses Otalgia, unspecified ear (10/27/21) Unspecified temporomandibular joint disorder, unspecified side (10/27/21) Abnormal posture (10/27/21) Visit Care Team Role Provider Type Tacho Bartholomew MD Family Provider Physician Primary Care Provider Specialty: Family Practice Address: [address] [place] [address], [id number] Email: [email or web address] David Echevarria MD Attending Provider Physician Referring Provider Specialty: Ear, Nose, Throat Address: [address] [place] [address], [id number] Email: [email or web address] Plan Of Care PT-OP-T Assessment and Plan Start: 10/26/21 17:45 Freq: Status: Active Protocol: Document 10/27/21 10:34 [facility] (Rec: 10/27/21 13:09 [facility] [id number]) Physical Therapy Assessment Rehab Potential Rehabilitation Potential Good Evaluation Complexity Number of Personal Factors/Comorbidities 3 or More Number of Body Systems Impaired 4 or More Clinical Presentation at Evaluation Stable Impairments Impairments Activity Tolerance,Functional Mobility,Pain,Posture,ROM,Soft Tissue Mobility Goals ear pain Short Term Goal (STG) pt will report a further 50% reduction in muffling, pain, and clogged symptoms in L ear. STG Duration 11/24/21 Drywall Carrier Goal (LTG) Pt will improve to having no more L ear pain, muffling, or clogged feeling. LTG Duration 12/25/21 jaw opening Drywall Carrier Goal (LTG) Pt will be able to open/close jaw w/o inc ear pain. LTG Duration 12/25/21 Assessment Summary Assessment Pt presents w/L ear pain for the over the past year w/mult tests being done by ENT w/o known cause. He has history of chronic cervical and lumbar pain which he manages w/ chiropractic, but that has not changed his ear pain. He has some dental issues and had a 50% improvement w/ear pain after tooth removal. 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 He has cervical restrictions also. He would benefit from PT to work on neck mobility, jaw mobility and posture in order to dec instances of L ear pain and AUGUSTE . Physical Therapy Plan Frequency and Duration Frequency of Treatment 1-2x/week Duration of Treatment 2 months Plan of Care Start Date 10/27/21 Plan of Care End Date 12/25/21 Therapeutic Interventions Therapeutic Interventions Home Exercise Program,Joint Mobilizations,Manual Therapy, Neuromuscular Re-education, Patient/Caregiver Education, Self-Care/Home Management,Soft Tissue Mobilization,Taping, Therapeutic Activities, Therapeutic Exercises Modalities Cold Pack/Ice Massage,Hot Packs Next Visit Focus/Plan Next Note Type Treatment Note Next Visit Plan review exercises, STM to cranium & jaw region, VAT, Jaw mobs Plan of Care Dates Plan of Care Start Date 10/27/21 Plan of Care End Date 12/25/21 Electronically Signed by: Shahnaz Echevarria, PT 10/28/21 2715 Please Sign and Return: I have reviewed this Plan of Care and certify that the skilled therapy services above are required to meet the patient?s needs. Physician Signature Date Printed Name and Credentials Clinical Instructor Signature Printed Name and Credentials
--- NOTE | 2021-11-01 16:51 | PT.OTN ---
Current Diagnoses Otalgia, unspecified ear (11/01/21) Unspecified temporomandibular joint disorder, unspecified side (11/01/21) Abnormal posture (11/01/21) Physical Therapy Treatment Note PT-OP-A Visit Information Start: 10/26/21 17:45 Freq: Status: Active Protocol: Document 11/01/21 16:05 [facility] (Rec: 11/01/21 16:51 [facility] [id number]) Out-Patient Physical Therapy Visit Information Visit Information Visit Type Treatment Note Visit Note 10/21 Visit Start Time 16:05 Visit Stop Time 16:45 Total Visit Minutes 40 Visit Number 2 Number of SPECIMEN BOSS Visits 0 PT-OP-B Current Condition Start: 10/26/21 17:45 Freq: Status: Active Protocol: Document 10/27/21 10:34 [facility] (Rec: 10/27/21 13:09 [facility] [id number]) Current Condition History of Current Condition Onset Date over 1 year Current Complaints L ear History of Current Condition Pt reports L ear pain that he went to the MD for and was referred to Dr. Echevarria. He was given 2 hearing tests and multiple exams and he couldn't find anything wrong. He went to the dentist and had a tooth pulled and it improved it about 50% less than 2 months ago. Pt reports there is a tooth on the R side that will need a crown replaced and a partial cap came off one on L side and there is another that they may have to pull (he is unsure why). Pt is unsure how they will decide it will need to be pulled.He feels like it is plugged up like when crossing the [place] pass all the time jnow and sometimes can relieve it by pushign on ear. Pt hurts and echos when he talks but not as much of a problem when others talks. Pt reprots he has a history of neck and back problems all the way to his tailbone. It has been tolerable. He sees a chiro regularly and that helps to manage his back and neck pain and has had shots in the past to help manage that. Chiro has tried one adjustment to jaw region and that did not help w/the pain. Pt reports the L ear pain is with him for about 2/3 of the day. It does not give him trouble at night and it is gone before he goes to bed. Comes on shortly after he gets up. He doesn't notice it in the middle of the night when he gets up to go to the bathroom. He has had a recent hearing test and L>R has nominally worse hearing. Last week he fell d/t turning and reaching backwards, and landed face down onto his chainsaw and he heard pops. It hurts to take a deep breath or sneeze. Pt reports he gets dizziness occasionally unsure what brings it on. Has not passed out. Reports he has been doing exercises recenty including sit<>stands. Pt reports he has goten AUGUSTE lately over the last 2-3 months not daily but occasional. AUGUSTE at temporal region. He thinks the AUGUSTE may occur when the ear is worse. AUGUSTE when he gets them get ot be about 7-8/10. Someone talking loud can cause sharp pain into the ear. Treatment Goals Patient/Caregiver Goals get rid of ear pain. PT-OP-C Subjective Start: 10/26/21 17:45 Freq: Status: Active Protocol: Document 11/01/21 16:05 [facility] (Rec: 11/01/21 16:51 [facility] [id number]) OP-PT Subjective Patient Comments Patient Comments Pt reports no change w/ exercises PT-OP-F Manual Assessment Start: 10/26/21 17:45 Freq: Status: Active Protocol: Document 10/27/21 10:34 [facility] (Rec: 10/27/21 13:09 [facility] [id number]) Manual Assessments Soft Tissue Assessment Soft Tissue Mobility Assessment tightness and tenderness to L> R temporalis, masseter, digastric, L post and inf jaw, SCM Joint Mobility Assessment Joint Mobility Assessment jaw protrudes fwd in socket w/ opening L>R and roel post w/ R w/closing PT-OP-J Posture/Palpation/Skin Start: 10/26/21 17:45 Freq: Status: Active Protocol: Document 10/27/21 10:34 [facility] (Rec: 10/27/21 13:09 [facility] [id number]) Posture Evaluation Comments Posture Comments fwd rounded shoulders & fwd neck, jaw deviated slightly L PT-OP-K Range of Motion Start: 10/26/21 17:45 Freq: Status: Active Protocol: Document 10/27/21 10:34 [facility] (Rec: 10/27/21 13:09 [facility] [id number]) Cervical Spine Range of Motion Cervical Spine Active Degrees Flexion 34 Extension 33 Rotation Left 51 Rotation Right 46 Lateral Flexion Left 17 Lateral Flexion Right 20 Comments no change w/ear plug feeling TMJ Range of Motion Jaw Openning Jaw Openning (mm) 40 Comments Comments jaw deviation sliglty greater to R but no pain; noted pain after 3x jaw opening w/closing jaw PT-OP-L Special Tests Start: 10/26/21 17:45 Freq: Status: Active Protocol: Document 10/27/21 10:34 [facility] (Rec: 10/27/21 13:09 [facility] [id number]) Special Tests Cervical Spine Special Tests Spurling's Test Test Results neg Alar Ligament Test Results neg PT-OP-Q Treatments Start: 10/26/21 17:45 Freq: Status: Active Protocol: Document 11/01/21 16:05 [facility] (Rec: 11/01/21 16:51 [facility] [id number]) Therapeutic Exercises Sitting Exercises rocabado Sitting Exercise Name 6x6 Reps/Minutes 10 reps instead of 6 Comments max cues Manual Therapy Treatment Soft Tissue Mobilization cervical Body Location SCM & scalenes Mobilization Type Rolling Intensity/Depth Moderate Body Position Supine intraoral Body Location L med ptyergoid & masseter Mobilization Type Sustained Pressure Intensity/Depth Moderate cranial Body Location L>R occipital region Mobilization Type Myofascial Release Intensity/Depth Superficial Body Position Supine jaw Body Location Masseter, med ptyergoid, temporalis Mobilization Type Rolling Intensity/Depth Moderate Body Position Supine PT-OP-T Assessment and Plan Start: 10/26/21 17:45 Freq: Status: Active Protocol: Document 11/01/21 16:05 [facility] (Rec: 11/01/21 16:51 [facility] [id number]) Physical Therapy Assessment Goals ear pain Short Term Goal (STG) pt will report a further 50% reduction in muffling, pain, and clogged symptoms in L ear. STG Duration 11/24/21 Half-Way Goal (LTG) Pt will improve to having no more L ear pain, muffling, or clogged feeling. LTG Duration 12/25/21 jaw opening Regional Manager Goal (LTG) Pt will be able to open/close jaw w/o inc ear pain. LTG Duration 12/25/21 Assessment Summary Assessment Pt required max cueing for rocabado exercises and was able to add breathing but did require cueing as well for that. Did more reps to imrpove performance. He has signfiicant tenderness and tightness on L>R through all cervical and jaw mm. Physical Therapy Plan Frequency and Duration Frequency of Treatment 1-2x/week Duration of Treatment 2 months Plan of Care Start Date 10/27/21 Plan of Care End Date 12/25/21 Next Visit Focus/Plan Next Note Type Treatment Note Next Visit Plan review exercises, STM to cranium & jaw region, VAT, Jaw mobs
--- NOTE | 2021-11-05 09:00 | PT.OTN ---
Current Diagnoses Otalgia, unspecified ear (11/05/21) Unspecified temporomandibular joint disorder, unspecified side (11/05/21) Abnormal posture (11/05/21) Physical Therapy Treatment Note PT-OP-A Visit Information Start: 10/26/21 17:45 Freq: Status: Active Protocol: Document 11/05/21 08:15 [facility] (Rec: 11/05/21 09:05 [facility] [id number]) Out-Patient Physical Therapy Visit Information Visit Information Visit Type Treatment Note Visit Note 11/18 Visit Start Time 08:15 Visit Stop Time 09:00 Total Visit Minutes 45 Visit Number 3 Number of MAKEUP INSTRUCTOR Visits 1 PT-OP-B Current Condition Start: 10/26/21 17:45 Freq: Status: Active Protocol: Document 10/27/21 10:34 [facility] (Rec: 10/27/21 13:09 [facility] [id number]) Current Condition History of Current Condition Onset Date over 1 year Current Complaints L ear History of Current Condition Pt reports L ear pain that he went to the MD for and was referred to Dr. Echevarria. He was given 2 hearing tests and multiple exams and he couldn't find anything wrong. He went to the dentist and had a tooth pulled and it improved it about 50% less than 2 months ago. Pt reports there is a tooth on the R side that will need a crown replaced and a partial cap came off one on L side and there is another that they may have to pull (he is unsure why). Pt is unsure how they will decide it will need to be pulled.He feels like it is plugged up like when crossing the [place] pass all the time jnow and sometimes can relieve it by pushign on ear. Pt hurts and echos when he talks but not as much of a problem when others talks. Pt reprots he has a history of neck and back problems all the way to his tailbone. It has been tolerable. He sees a chiro regularly and that helps to manage his back and neck pain and has had shots in the past to help manage that. Chiro has tried one adjustment to jaw region and that did not help w/the pain. Pt reports the L ear pain is with him for about 2/3 of the day. It does not give him trouble at night and it is gone before he goes to bed. Comes on shortly after he gets up. He doesn't notice it in the middle of the night when he gets up to go to the bathroom. He has had a recent hearing test and L>R has nominally worse hearing. Last week he fell d/t turning and reaching backwards, and landed face down onto his chainsaw and he heard pops. It hurts to take a deep breath or sneeze. Pt reports he gets dizziness occasionally unsure what brings it on. Has not passed out. Reports he has been doing exercises recenty including sit<>stands. Pt reports he has goten AUGUSTE lately over the last 2-3 months not daily but occasional. AUGUSTE at temporal region. He thinks the AUGUSTE may occur when the ear is worse. AUGUSTE when he gets them get ot be about 7-8/10. Someone talking loud can cause sharp pain into the ear. Treatment Goals Patient/Caregiver Goals get rid of ear pain. PT-OP-C Subjective Start: 10/26/21 17:45 Freq: Status: Active Protocol: Document 11/05/21 08:15 [facility] (Rec: 11/05/21 09:05 [facility] [id number]) OP-PT Subjective Patient Comments Patient Comments Seems to be little better. Had first good night sleep last night, 9 hrs and Lateral L ribcage didn't hurt at all. No trouble with pain or eating anything wants. L ear drum didn't have as extreme plugged feeling, mimimal today but starting up. PT-OP-F Manual Assessment Start: 10/26/21 17:45 Freq: Status: Active Protocol: Document 10/27/21 10:34 [facility] (Rec: 10/27/21 13:09 [facility] [id number]) Manual Assessments Soft Tissue Assessment Soft Tissue Mobility Assessment tightness and tenderness to L> R temporalis, masseter, digastric, L post and inf jaw, SCM Joint Mobility Assessment Joint Mobility Assessment jaw protrudes fwd in socket w/ opening L>R and roel post w/ R w/closing PT-OP-J Posture/Palpation/Skin Start: 10/26/21 17:45 Freq: Status: Active Protocol: Document 10/27/21 10:34 [facility] (Rec: 10/27/21 13:09 [facility] [id number]) Posture Evaluation Comments Posture Comments fwd rounded shoulders & fwd neck, jaw deviated slightly L PT-OP-K Range of Motion Start: 10/26/21 17:45 Freq: Status: Active Protocol: Document 10/27/21 10:34 [facility] (Rec: 10/27/21 13:09 [facility] [id number]) Cervical Spine Range of Motion Cervical Spine Active Degrees Flexion 34 Extension 33 Rotation Left 51 Rotation Right 46 Lateral Flexion Left 17 Lateral Flexion Right 20 Comments no change w/ear plug feeling TMJ Range of Motion Jaw Openning Jaw Openning (mm) 40 Comments Comments jaw deviation sliglty greater to R but no pain; noted pain after 3x jaw opening w/closing jaw PT-OP-L Special Tests Start: 10/26/21 17:45 Freq: Status: Active Protocol: Document 10/27/21 10:34 [facility] (Rec: 10/27/21 13:09 [facility] [id number]) Special Tests Cervical Spine Special Tests Spurling's Test Test Results neg Alar Ligament Test Results neg PT-OP-Q Treatments Start: 10/26/21 17:45 Freq: Status: Active Protocol: Document 11/05/21 08:15 [facility] (Rec: 11/05/21 09:05 [facility] [id number]) Therapeutic Exercises Supine Exercises chin tuck Supine Exercise Name added to HEP Reps/Minutes 5 x10 Comments good form Sitting Exercises rocabado Sitting Exercise Name 6x6 Equipment Used in mirror Reps/Minutes 10 reps instead of 6 Comments Mod cues Standing Exercises wall posture Standing Exercise Name added to HEP Equipment Used twoel behind head Reps/Minutes 5 hold x10 Comments good form- scap retraction/chest lift Standing Exercise Name added to HEP Reps/Minutes 5 x10 Comments good form Manual Therapy Treatment Soft Tissue Mobilization cervical Body Location SCM & scalenes Mobilization Type Rolling Intensity/Depth Moderate Body Position Supine intraoral Body Location L med ptyergoid & masseter Mobilization Type Sustained Pressure Intensity/Depth Moderate cranial Body Location L>R occipital region, temporalis Mobilization Type Myofascial Release Intensity/Depth Superficial Body Position Supine jaw Body Location Masseter, med ptyergoid, temporalis Mobilization Type Rolling Intensity/Depth Moderate Body Position Supine Self-Care/Home Management Treatment Education Patient Education Home Exercise Program,Pain Management,Posture Other Education Time spent on education anatomy and trunk/neck alignment for awareness posture and how can potentially affect jaw, ENT with good understanding. Ed on self STMs SCM, intraoral post manual on carryover at home. Reviewed HEP TMJ 6x6 in front mirror with improvement in understanding and good postural self corrections. Initiated chin nod/tuck, scap retraction applied in posture at wall with good understanding and found helpful. Provided HO for self recall/form. PT-OP-T Assessment and Plan Start: 10/26/21 17:45 Freq: Status: Active Protocol: Document 11/05/21 08:15 [facility] (Rec: 11/05/21 09:05 [facility] [id number]) Physical Therapy Assessment Goals ear pain Short Term Goal (STG) pt will report a further 50% reduction in muffling, pain, and clogged symptoms in L ear. STG Duration 11/24/21 Correction Goal (LTG) Pt will improve to having no more L ear pain, muffling, or clogged feeling. LTG Duration 12/25/21 jaw opening Chick Room Supervisor Goal (LTG) Pt will be able to open/close jaw w/o inc ear pain. LTG Duration 12/25/21 Assessment Summary Assessment Pt good response manual and extra time spent self application. Provided HOs to added chin tuck, scap retraction and wall posture carry over alignment. Physical Therapy Plan Frequency and Duration Frequency of Treatment 1-2x/week Duration of Treatment 2 months Plan of Care Start Date 10/27/21 Plan of Care End Date 12/25/21 Therapeutic Interventions Therapeutic Interventions Home Exercise Program,Joint Mobilizations,Manual Therapy, Neuromuscular Re-education, Patient/Caregiver Education, Self-Care/Home Management,Soft Tissue Mobilization,Taping, Therapeutic Activities, Therapeutic Exercises Modalities Cold Pack/Ice Massage,Hot Packs Next Visit Focus/Plan Next Note Type Treatment Note Next Visit Plan Review HEP, recheck if performed self intructed STMs and response. POC : STM to cranium & jaw region, VAT, Jaw mobs
--- NOTE | 2021-11-09 09:49 | PT.OTN ---
Current Diagnoses Otalgia, unspecified ear (11/09/21) Unspecified temporomandibular joint disorder, unspecified side (11/09/21) Abnormal posture (11/09/21) Physical Therapy Treatment Note PT-OP-A Visit Information Start: 10/26/21 17:45 Freq: Status: Active Protocol: Document 11/09/21 08:59 [facility] (Rec: 11/09/21 09:49 [facility] [id number]) Out-Patient Physical Therapy Visit Information Visit Information Visit Type Treatment Note Visit Note 12/19 Visit Start Time 09:00 Visit Stop Time 09:40 Total Visit Minutes 40 Visit Number 4 Number of TRAVEL RN OR Visits 0 PT-OP-B Current Condition Start: 10/26/21 17:45 Freq: Status: Active Protocol: Document 10/27/21 10:34 [facility] (Rec: 10/27/21 13:09 [facility] [id number]) Current Condition History of Current Condition Onset Date over 1 year Current Complaints L ear History of Current Condition Pt reports L ear pain that he went to the MD for and was referred to Dr. Echevarria. He was given 2 hearing tests and multiple exams and he couldn't find anything wrong. He went to the dentist and had a tooth pulled and it improved it about 50% less than 2 months ago. Pt reports there is a tooth on the R side that will need a crown replaced and a partial cap came off one on L side and there is another that they may have to pull (he is unsure why). Pt is unsure how they will decide it will need to be pulled.He feels like it is plugged up like when crossing the mtn pass all the time jnow and sometimes can relieve it by pushign on ear. Pt hurts and echos when he talks but not as much of a problem when others talks. Pt reprots he has a history of neck and back problems all the way to his tailbone. It has been tolerable. He sees a chiro regularly and that helps to manage his back and neck pain and has had shots in the past to help manage that. Chiro has tried one adjustment to jaw region and that did not help w/the pain. Pt reports the L ear pain is with him for about 2/3 of the day. It does not give him trouble at night and it is gone before he goes to bed. Comes on shortly after he gets up. He doesn't notice it in the middle of the night when he gets up to go to the bathroom. He has had a recent hearing test and L>R has nominally worse hearing. Last week he fell d/t turning and reaching backwards, and landed face down onto his chainsaw and he heard pops. It hurts to take a deep breath or sneeze. Pt reports he gets dizziness occasionally unsure what brings it on. Has not passed out. Reports he has been doing exercises recenty including sit<>stands. Pt reports he has goten AUGUSTE lately over the last 2-3 months not daily but occasional. AUGUSTE at temporal region. He thinks the AUGUSTE may occur when the ear is worse. AUGUSTE when he gets them get ot be about 7-8/10. Someone talking loud can cause sharp pain into the ear. Treatment Goals Patient/Caregiver Goals get rid of ear pain. PT-OP-C Subjective Start: 10/26/21 17:45 Freq: Status: Active Protocol: Document 11/09/21 08:59 [facility] (Rec: 11/09/21 09:49 [facility] [id number]) OP-PT Subjective Patient Comments Patient Comments Pt reports ear pain feels better after a session when PT works on him but it only helps for a short bout. No major change PT-OP-F Manual Assessment Start: 10/26/21 17:45 Freq: Status: Active Protocol: Document 10/27/21 10:34 [facility] (Rec: 10/27/21 13:09 [facility] [id number]) Manual Assessments Soft Tissue Assessment Soft Tissue Mobility Assessment tightness and tenderness to L> R temporalis, masseter, digastric, L post and inf jaw, SCM Joint Mobility Assessment Joint Mobility Assessment jaw protrudes fwd in socket w/ opening L>R and roel post w/ R w/closing PT-OP-J Posture/Palpation/Skin Start: 10/26/21 17:45 Freq: Status: Active Protocol: Document 10/27/21 10:34 [facility] (Rec: 10/27/21 13:09 [facility] [id number]) Posture Evaluation Comments Posture Comments fwd rounded shoulders & fwd neck, jaw deviated slightly L PT-OP-K Range of Motion Start: 10/26/21 17:45 Freq: Status: Active Protocol: Document 10/27/21 10:34 [facility] (Rec: 10/27/21 13:09 [facility] [id number]) Cervical Spine Range of Motion Cervical Spine Active Degrees Flexion 34 Extension 33 Rotation Left 51 Rotation Right 46 Lateral Flexion Left 17 Lateral Flexion Right 20 Comments no change w/ear plug feeling TMJ Range of Motion Jaw Openning Jaw Openning (mm) 40 Comments Comments jaw deviation sliglty greater to R but no pain; noted pain after 3x jaw opening w/closing jaw PT-OP-L Special Tests Start: 10/26/21 17:45 Freq: Status: Active Protocol: Document 10/27/21 10:34 [facility] (Rec: 10/27/21 13:09 [facility] [id number]) Special Tests Cervical Spine Special Tests Spurling's Test Test Results neg Alar Ligament Test Results neg PT-OP-Q Treatments Start: 10/26/21 17:45 Freq: Status: Active Protocol: Document 11/09/21 08:59 [facility] (Rec: 11/09/21 09:49 [facility] [id number]) Therapeutic Exercises Sitting Exercises rocabado Sitting Exercise Name 6x6 Equipment Used in mirror Reps/Minutes 10 reps instead of 6 Comments Mod cues Standing Exercises wall posture Standing Exercise Name review HEP Equipment Used pillow behind behind head Reps/Minutes 1 min hold x2 cues for roll up Comments feet away from wall-back flat onto wall & UE ext Manual Therapy Treatment Soft Tissue Mobilization cervical Body Location SCM & scalenes & SOR Mobilization Type Rolling,Sustained Pressure Intensity/Depth Moderate Body Position Supine cranial Body Location B occipital region, temporalis Mobilization Type Myofascial Release Intensity/Depth Superficial Body Position Supine jaw Body Location Masseter, med ptyergoid, inf jaw line Mobilization Type Rolling Intensity/Depth Moderate Body Position Supine Joint Mobilizations Cervical Comments 1. C1 transverse R FM 2. C2 UPA L FM VBAT neg PT-OP-T Assessment and Plan Start: 10/26/21 17:45 Freq: Status: Active Protocol: Document 11/09/21 08:59 [facility] (Rec: 11/09/21 09:49 [facility] [id number]) Physical Therapy Assessment Goals ear pain Short Term Goal (STG) pt will report a further 50% reduction in muffling, pain, and clogged symptoms in L ear. STG Duration 11/24/21 Legal Document Assistant Goal (LTG) Pt will improve to having no more L ear pain, muffling, or clogged feeling. LTG Duration 12/25/21 jaw opening Legal Document Assistant Goal (LTG) Pt will be able to open/close jaw w/o inc ear pain. LTG Duration 12/25/21 Assessment Summary Assessment Pt did better with exercises today but continues to require lots of cueing for exercises for appropriate form. It appears like pt symptoms dec when supine and are okay when get to seated but start again when going to standing. Pt educated to monitor this. Physical Therapy Plan Frequency and Duration Frequency of Treatment 1-2x/week Duration of Treatment 2 months Plan of Care Start Date 10/27/21 Plan of Care End Date 12/25/21 Next Visit Focus/Plan Next Note Type Treatment Note Next Visit Plan review exercises, STM to cranium & jaw region, cervical mobs,Jaw mobs
--- NOTE | 2021-11-11 09:03 | PT.OTN ---
Current Diagnoses Otalgia, unspecified ear (11/11/21) Unspecified temporomandibular joint disorder, unspecified side (11/11/21) Abnormal posture (11/11/21) Physical Therapy Treatment Note PT-OP-A Visit Information Start: 10/26/21 17:45 Freq: Status: Active Protocol: Document 11/11/21 08:21 [facility] (Rec: 11/11/21 09:05 [facility] [id number]) Out-Patient Physical Therapy Visit Information Visit Information Visit Type Treatment Note Visit Note 01/18 Visit Start Time 08:20 Visit Stop Time 09:03 Total Visit Minutes 43 Visit Number 5 Number of DINING ROOM SERVER Visits 1 PT-OP-B Current Condition Start: 10/26/21 17:45 Freq: Status: Active Protocol: Document 10/27/21 10:34 [facility] (Rec: 10/27/21 13:09 [facility] [id number]) Current Condition History of Current Condition Onset Date over 1 year Current Complaints L ear History of Current Condition Pt reports L ear pain that he went to the MD for and was referred to Dr. Echevarria. He was given 2 hearing tests and multiple exams and he couldn't find anything wrong. He went to the dentist and had a tooth pulled and it improved it about 50% less than 2 months ago. Pt reports there is a tooth on the R side that will need a crown replaced and a partial cap came off one on L side and there is another that they may have to pull (he is unsure why). Pt is unsure how they will decide it will need to be pulled.He feels like it is plugged up like when crossing the [place] pass all the time jnow and sometimes can relieve it by pushign on ear. Pt hurts and echos when he talks but not as much of a problem when others talks. Pt reprots he has a history of neck and back problems all the way to his tailbone. It has been tolerable. He sees a chiro regularly and that helps to manage his back and neck pain and has had shots in the past to help manage that. Chiro has tried one adjustment to jaw region and that did not help w/the pain. Pt reports the L ear pain is with him for about 2/3 of the day. It does not give him trouble at night and it is gone before he goes to bed. Comes on shortly after he gets up. He doesn't notice it in the middle of the night when he gets up to go to the bathroom. He has had a recent hearing test and L>R has nominally worse hearing. Last week he fell d/t turning and reaching backwards, and landed face down onto his chainsaw and he heard pops. It hurts to take a deep breath or sneeze. Pt reports he gets dizziness occasionally unsure what brings it on. Has not passed out. Reports he has been doing exercises recenty including sit<>stands. Pt reports he has goten AUGUSTE lately over the last 2-3 months not daily but occasional. AUGUSTE at temporal region. He thinks the AUGUSTE may occur when the ear is worse. AUGUSTE when he gets them get ot be about 7-8/10. Someone talking loud can cause sharp pain into the ear. Treatment Goals Patient/Caregiver Goals get rid of ear pain. PT-OP-C Subjective Start: 10/26/21 17:45 Freq: Status: Active Protocol: Document 11/11/21 08:21 [facility] (Rec: 11/11/21 09:05 [facility] [id number]) OP-PT Subjective Patient Comments Patient Comments Pt stated same today, muffled hearing 20 min after get up, had sharp pain yesterday all day. States after last tx tried to do some external self massage and felt painful, wondered if doing to hard during tx. PT-OP-F Manual Assessment Start: 10/26/21 17:45 Freq: Status: Active Protocol: Document 10/27/21 10:34 [facility] (Rec: 10/27/21 13:09 [facility] [id number]) Manual Assessments Soft Tissue Assessment Soft Tissue Mobility Assessment tightness and tenderness to L> R temporalis, masseter, digastric, L post and inf jaw, SCM Joint Mobility Assessment Joint Mobility Assessment jaw protrudes fwd in socket w/ opening L>R and roel post w/ R w/closing PT-OP-J Posture/Palpation/Skin Start: 10/26/21 17:45 Freq: Status: Active Protocol: Document 10/27/21 10:34 [facility] (Rec: 10/27/21 13:09 [facility] [id number]) Posture Evaluation Comments Posture Comments fwd rounded shoulders & fwd neck, jaw deviated slightly L PT-OP-K Range of Motion Start: 10/26/21 17:45 Freq: Status: Active Protocol: Document 10/27/21 10:34 [facility] (Rec: 10/27/21 13:09 [facility] [id number]) Cervical Spine Range of Motion Cervical Spine Active Degrees Flexion 34 Extension 33 Rotation Left 51 Rotation Right 46 Lateral Flexion Left 17 Lateral Flexion Right 20 Comments no change w/ear plug feeling TMJ Range of Motion Jaw Openning Jaw Openning (mm) 40 Comments Comments jaw deviation sliglty greater to R but no pain; noted pain after 3x jaw opening w/closing jaw PT-OP-L Special Tests Start: 10/26/21 17:45 Freq: Status: Active Protocol: Document 10/27/21 10:34 [facility] (Rec: 10/27/21 13:09 [facility] [id number]) Special Tests Cervical Spine Special Tests Spurling's Test Test Results neg Alar Ligament Test Results neg PT-OP-Q Treatments Start: 10/26/21 17:45 Freq: Status: Active Protocol: Document 11/11/21 08:21 [facility] (Rec: 11/11/21 09:05 [facility] [id number]) Therapeutic Exercises Supine Exercises chin tuck Supine Exercise Name added to HEP Reps/Minutes 5 x10 Comments good form Sitting Exercises scap retraction/ chest lift/CS neutral/ head nod Sitting Exercise Name reviewed prep wall posture once came to sitting Reps/Minutes 5 sec hold x5 Comments good form, does get little dizzy position change but goes away quickly rocabado Sitting Exercise Name 6x6 Equipment Used in mirror Reps/Minutes 10 reps instead of 6 Comments Mod cues Standing Exercises wall posture Standing Exercise Name review HEP w/ shld ER Equipment Used pillow behind behind head Reps/Minutes 30 hold x2 cues for roll up then shld ER palm forward Comments feet away from wall-back flat onto wall & UE ext Manual Therapy Treatment Soft Tissue Mobilization cervical Body Location SCM Mobilization Type Sustained Pressure,Other Intensity/Depth Moderate Body Position Hooklying Comments manual pincer knead. intraoral Body Location L med ptyergoid & masseter Mobilization Type Sustained Pressure Intensity/Depth Moderate Body Position Hooklying Comments sustained pressure feedback tolerance and w/ MWM open/ close TMJ cranial Body Location B temporalis Mobilization Type Cross-Friction,Myofascial Release Intensity/Depth Superficial Body Position Supine Comments manual and self education, gentle yaima pressure jaw Body Location inf jaw line Mobilization Type Rolling Intensity/Depth Moderate Body Position Supine Comments manual,ed performing self PT-OP-T Assessment and Plan Start: 10/26/21 17:45 Freq: Status: Active Protocol: Document 11/11/21 08:21 [facility] (Rec: 11/11/21 09:05 [facility] [id number]) Physical Therapy Assessment Goals ear pain Short Term Goal (STG) pt will report a further 50% reduction in muffling, pain, and clogged symptoms in L ear. STG Duration 11/24/21 Assisted Goal (LTG) Pt will improve to having no more L ear pain, muffling, or clogged feeling. LTG Duration 12/25/21 jaw opening Assisted Goal (LTG) Pt will be able to open/close jaw w/o inc ear pain. LTG Duration 12/25/21 Assessment Summary Assessment Pt responded well to manual, self application understanding , incorporated TMJ open/ close with no adverse affects, cued think about alignment. Carryover in standing back wall, then front mirror once in standing, improved self correction. no muffle supine > sit and review scap retraction / chin nod and added tongue touch roof mouth and pt felt less tension on ear. Pt reported less muffling end tx 3/10>2/10 walking out. Physical Therapy Plan Frequency and Duration Frequency of Treatment 1-2x/week Duration of Treatment 2 months Plan of Care Start Date 10/27/21 Plan of Care End Date 12/25/21 Therapeutic Interventions Therapeutic Interventions Home Exercise Program,Joint Mobilizations,Manual Therapy, Neuromuscular Re-education, Patient/Caregiver Education, Self-Care/Home Management,Soft Tissue Mobilization,Taping, Therapeutic Activities, Therapeutic Exercises Modalities Cold Pack/Ice Massage,Hot Packs Next Visit Focus/Plan Next Note Type Treatment Note Next Visit Plan review exercises, STM to cranium & jaw region, cervical mobs,Jaw mobs
--- NOTE | 2021-11-16 09:49 | PT.OTN ---
Current Diagnoses Otalgia, unspecified ear (11/16/21) Unspecified temporomandibular joint disorder, unspecified side (11/16/21) Abnormal posture (11/16/21) Physical Therapy Treatment Note PT-OP-A Visit Information Start: 10/26/21 17:45 Freq: Status: Active Protocol: Document 11/16/21 08:47 [facility] (Rec: 11/16/21 09:49 [facility] [id number]) Out-Patient Physical Therapy Visit Information Visit Information Visit Type Treatment Note Visit Note 02/18 Visit Start Time 09:07 Visit Stop Time 09:45 Total Visit Minutes 38 Visit Number 6 Number of SURVEY QUESTIONNAIRE DESIGNER Visits 0 PT-OP-B Current Condition Start: 10/26/21 17:45 Freq: Status: Active Protocol: Document 10/27/21 10:34 [facility] (Rec: 10/27/21 13:09 [facility] [id number]) Current Condition History of Current Condition Onset Date over 1 year Current Complaints L ear History of Current Condition Pt reports L ear pain that he went to the MD for and was referred to Dr. Echevarria. He was given 2 hearing tests and multiple exams and he couldn't find anything wrong. He went to the dentist and had a tooth pulled and it improved it about 50% less than 2 months ago. Pt reports there is a tooth on the R side that will need a crown replaced and a partial cap came off one on L side and there is another that they may have to pull (he is unsure why). Pt is unsure how they will decide it will need to be pulled.He feels like it is plugged up like when crossing the [place] pass all the time jnow and sometimes can relieve it by pushign on ear. Pt hurts and echos when he talks but not as much of a problem when others talks. Pt reprots he has a history of neck and back problems all the way to his tailbone. It has been tolerable. He sees a chiro regularly and that helps to manage his back and neck pain and has had shots in the past to help manage that. Chiro has tried one adjustment to jaw region and that did not help w/the pain. Pt reports the L ear pain is with him for about 2/3 of the day. It does not give him trouble at night and it is gone before he goes to bed. Comes on shortly after he gets up. He doesn't notice it in the middle of the night when he gets up to go to the bathroom. He has had a recent hearing test and L>R has nominally worse hearing. Last week he fell d/t turning and reaching backwards, and landed face down onto his chainsaw and he heard pops. It hurts to take a deep breath or sneeze. Pt reports he gets dizziness occasionally unsure what brings it on. Has not passed out. Reports he has been doing exercises recenty including sit<>stands. Pt reports he has goten AUGUSTE lately over the last 2-3 months not daily but occasional. AUGUSTE at temporal region. He thinks the AUGUSTE may occur when the ear is worse. AUGUSTE when he gets them get ot be about 7-8/10. Someone talking loud can cause sharp pain into the ear. Treatment Goals Patient/Caregiver Goals get rid of ear pain. PT-OP-C Subjective Start: 10/26/21 17:45 Freq: Status: Active Protocol: Document 11/16/21 08:47 [facility] (Rec: 11/16/21 09:49 [facility] [id number]) OP-PT Subjective Patient Comments Patient Comments Pt reports he gets in the exercises 1x/day. pt reports sometimes there is immediate relief with AUGUSTE w/self STM. Does not change his ear muffling w/ear pain. He thinks it is possible his ear pain is slightly improved. He feels like he is really noticing it when trying to listen or talk . Patient Reported Progress Same PT-OP-F Manual Assessment Start: 10/26/21 17:45 Freq: Status: Active Protocol: Document 10/27/21 10:34 [facility] (Rec: 10/27/21 13:09 [facility] [id number]) Manual Assessments Soft Tissue Assessment Soft Tissue Mobility Assessment tightness and tenderness to L> R temporalis, masseter, digastric, L post and inf jaw, SCM Joint Mobility Assessment Joint Mobility Assessment jaw protrudes fwd in socket w/ opening L>R and roel post w/ R w/closing PT-OP-J Posture/Palpation/Skin Start: 10/26/21 17:45 Freq: Status: Active Protocol: Document 10/27/21 10:34 [facility] (Rec: 10/27/21 13:09 [facility] [id number]) Posture Evaluation Comments Posture Comments fwd rounded shoulders & fwd neck, jaw deviated slightly L PT-OP-K Range of Motion Start: 10/26/21 17:45 Freq: Status: Active Protocol: Document 10/27/21 10:34 [facility] (Rec: 10/27/21 13:09 [facility] [id number]) Cervical Spine Range of Motion Cervical Spine Active Degrees Flexion 34 Extension 33 Rotation Left 51 Rotation Right 46 Lateral Flexion Left 17 Lateral Flexion Right 20 Comments no change w/ear plug feeling TMJ Range of Motion Jaw Openning Jaw Openning (mm) 40 Comments Comments jaw deviation sliglty greater to R but no pain; noted pain after 3x jaw opening w/closing jaw PT-OP-L Special Tests Start: 10/26/21 17:45 Freq: Status: Active Protocol: Document 10/27/21 10:34 [facility] (Rec: 10/27/21 13:09 [facility] [id number]) Special Tests Cervical Spine Special Tests Spurling's Test Test Results neg Alar Ligament Test Results neg PT-OP-Q Treatments Start: 10/26/21 17:45 Freq: Status: Active Protocol: Document 11/16/21 08:47 [facility] (Rec: 11/16/21 09:49 [facility] [id number]) Therapeutic Exercises Sidelying Exercises open book Side bilateral Reps/Minutes 8 ea Sitting Exercises scap retraction/ chest lift/CS neutral/ head nod Reps/Minutes 5 sec hold x5 Comments pt reports dec mufflling w/ good posture rocabado Sitting Exercise Name 6x6 Equipment Used in mirror Comments Mod cues Standing Exercises pec stretch Standing Exercise Name doorway arms ext Side bilateral Reps/Minutes 30 sec x2 Comments change leg fwd btwn reps wall posture Standing Exercise Name review HEP w/ shld Ext Equipment Used pillow behind behind head Reps/Minutes 2 min Comments feet away from wall-back flat onto wall & UE ext Manual Therapy Treatment Soft Tissue Mobilization cervical Body Location SCM & scalenes & SOR Mobilization Type Rolling,Sustained Pressure Intensity/Depth Moderate Body Position Supine Joint Mobilizations Cervical Comments 1. C2 UAP L 2. C1 transverse R & UAP L 3. C4 PA L Self-Care/Home Management Treatment Education Other Education edu on importance of posture and demo to pt how posture improves his symptoms. Discussed inc amt of times he does at least chin tucks and scap retraction PT-OP-T Assessment and Plan Start: 10/26/21 17:45 Freq: Status: Active Protocol: Document 11/16/21 08:47 [facility] (Rec: 11/16/21 09:49 [facility] [id number]) Physical Therapy Assessment Goals ear pain Short Term Goal (STG) pt will report a further 50% reduction in muffling, pain, and clogged symptoms in L ear. STG Duration 11/24/21 Stunt Performer Goal (LTG) Pt will improve to having no more L ear pain, muffling, or clogged feeling. LTG Duration 12/25/21 jaw opening Assisted Goal (LTG) Pt will be able to open/close jaw w/o inc ear pain. LTG Duration 12/25/21 Assessment Summary Assessment pt did better with chin tucks, retraction & jaw exercies today w/much less cueing. He has less deviation of his jaw now during exercises. He did find dec muffling w/improved posture so encouraged pt to work on this. Physical Therapy Plan Frequency and Duration Frequency of Treatment 1-2x/week Duration of Treatment 2 months Plan of Care Start Date 10/27/21 Plan of Care End Date 12/25/21 Next Visit Focus/Plan Next Note Type Treatment Note Next Visit Plan STM to cranium & jaw region, cervical mobs,Jaw mobs, work on posture
--- NOTE | 2021-11-18 10:38 | PT.OTN ---
Current Diagnoses Otalgia, unspecified ear (11/18/21) Unspecified temporomandibular joint disorder, unspecified side (11/18/21) Abnormal posture (11/18/21) Physical Therapy Treatment Note PT-OP-A Visit Information Start: 10/26/21 17:45 Freq: Status: Active Protocol: Document 11/18/21 09:50 [facility] (Rec: 11/18/21 10:38 [facility] [id number]) Out-Patient Physical Therapy Visit Information Visit Information Visit Type Treatment Note Visit Note 03/20 Visit Start Time 09:51 Visit Stop Time 10:30 Total Visit Minutes 39 Visit Number 7 Number of CONTAINER CRANE OPERATOR Visits 0 PT-OP-B Current Condition Start: 10/26/21 17:45 Freq: Status: Active Protocol: Document 10/27/21 10:34 [facility] (Rec: 10/27/21 13:09 [facility] [id number]) Current Condition History of Current Condition Onset Date over 1 year Current Complaints L ear History of Current Condition Pt reports L ear pain that he went to the MD for and was referred to Dr. Echevarria. He was given 2 hearing tests and multiple exams and he couldn't find anything wrong. He went to the dentist and had a tooth pulled and it improved it about 50% less than 2 months ago. Pt reports there is a tooth on the R side that will need a crown replaced and a partial cap came off one on L side and there is another that they may have to pull (he is unsure why). Pt is unsure how they will decide it will need to be pulled.He feels like it is plugged up like when crossing the [place] pass all the time jnow and sometimes can relieve it by pushign on ear. Pt hurts and echos when he talks but not as much of a problem when others talks. Pt reprots he has a history of neck and back problems all the way to his tailbone. It has been tolerable. He sees a chiro regularly and that helps to manage his back and neck pain and has had shots in the past to help manage that. Chiro has tried one adjustment to jaw region and that did not help w/the pain. Pt reports the L ear pain is with him for about 2/3 of the day. It does not give him trouble at night and it is gone before he goes to bed. Comes on shortly after he gets up. He doesn't notice it in the middle of the night when he gets up to go to the bathroom. He has had a recent hearing test and L>R has nominally worse hearing. Last week he fell d/t turning and reaching backwards, and landed face down onto his chainsaw and he heard pops. It hurts to take a deep breath or sneeze. Pt reports he gets dizziness occasionally unsure what brings it on. Has not passed out. Reports he has been doing exercises recenty including sit<>stands. Pt reports he has goten AUGUSTE lately over the last 2-3 months not daily but occasional. AUGUSTE at temporal region. He thinks the AUGUSTE may occur when the ear is worse. AUGUSTE when he gets them get ot be about 7-8/10. Someone talking loud can cause sharp pain into the ear. Treatment Goals Patient/Caregiver Goals get rid of ear pain. PT-OP-C Subjective Start: 10/26/21 17:45 Freq: Status: Active Protocol: Document 11/18/21 09:50 [facility] (Rec: 11/18/21 10:38 [facility] [id number]) OP-PT Subjective Patient Comments Patient Comments Pt reports about 50% improvement in ear pain since starting PT. No change in clogged/muffled feeling. Patient Reported Progress Improving PT-OP-F Manual Assessment Start: 10/26/21 17:45 Freq: Status: Active Protocol: Document 10/27/21 10:34 [facility] (Rec: 10/27/21 13:09 [facility] [id number]) Manual Assessments Soft Tissue Assessment Soft Tissue Mobility Assessment tightness and tenderness to L> R temporalis, masseter, digastric, L post and inf jaw, SCM Joint Mobility Assessment Joint Mobility Assessment jaw protrudes fwd in socket w/ opening L>R and roel post w/ R w/closing PT-OP-J Posture/Palpation/Skin Start: 10/26/21 17:45 Freq: Status: Active Protocol: Document 10/27/21 10:34 [facility] (Rec: 10/27/21 13:09 [facility] [id number]) Posture Evaluation Comments Posture Comments fwd rounded shoulders & fwd neck, jaw deviated slightly L PT-OP-K Range of Motion Start: 10/26/21 17:45 Freq: Status: Active Protocol: Document 10/27/21 10:34 [facility] (Rec: 10/27/21 13:09 [facility] [id number]) Cervical Spine Range of Motion Cervical Spine Active Degrees Flexion 34 Extension 33 Rotation Left 51 Rotation Right 46 Lateral Flexion Left 17 Lateral Flexion Right 20 Comments no change w/ear plug feeling TMJ Range of Motion Jaw Openning Jaw Openning (mm) 40 Comments Comments jaw deviation sliglty greater to R but no pain; noted pain after 3x jaw opening w/closing jaw PT-OP-L Special Tests Start: 10/26/21 17:45 Freq: Status: Active Protocol: Document 10/27/21 10:34 [facility] (Rec: 10/27/21 13:09 [facility] [id number]) Special Tests Cervical Spine Special Tests Spurling's Test Test Results neg Alar Ligament Test Results neg PT-OP-Q Treatments Start: 10/26/21 17:45 Freq: Status: Active Protocol: Document 11/18/21 09:50 [facility] (Rec: 11/18/21 10:38 [facility] [id number]) Therapeutic Exercises Sidelying Exercises open book Side bilateral Reps/Minutes 8 ea Sitting Exercises scap retraction/ chest lift/CS neutral/ head nod Reps/Minutes 5 sec hold x6 Standing Exercises wall posture Standing Exercise Name review HEP w/ shld Ext Equipment Used pillow behind behind head Reps/Minutes 2 min Comments feet away from wall-back flat onto wall & UE ext scap retraction/chest lift Standing Exercise Name shoulder ext w/retract Side bilateral Equipment Used L3 Reps/Minutes 20 Comments cues for scap dep w/retraction &slow and contorlled Manual Therapy Treatment Soft Tissue Mobilization cervical Body Location SCM & scalenes & SOR Mobilization Type Rolling,Sustained Pressure Intensity/Depth Moderate Body Position Supine cranial Body Location R temporalis Mobilization Type Cross-Friction,Myofascial Release Intensity/Depth Superficial Body Position Supine Comments manual and self education, gentle yaima pressure jaw Body Location inf jaw line Mobilization Type Rolling Intensity/Depth Moderate Body Position Supine Comments manual,ed performing self Joint Mobilizations Cervical Comments 1. C2 UAP L PT-OP-T Assessment and Plan Start: 10/26/21 17:45 Freq: Status: Active Protocol: Document 11/18/21 09:50 [facility] (Rec: 11/18/21 10:38 [facility] [id number]) Physical Therapy Assessment Goals ear pain Short Term Goal (STG) pt will report a further 50% reduction in muffling, pain, and clogged symptoms in L ear. STG Duration 11/24/21 Business Operations Manager Goal (LTG) Pt will improve to having no more L ear pain, muffling, or clogged feeling. LTG Duration 12/25/21 jaw opening Business Operations Manager Goal (LTG) Pt will be able to open/close jaw w/o inc ear pain. LTG Duration 12/25/21 Assessment Summary Assessment Pt cont to improve w/exercise performace and is doing better w/performance of HEP. Added shoulder ext during session but pt required a lot of cues throughout. Pt is reporting some dec in ear pain but no change in muffling. Physical Therapy Plan Frequency and Duration Frequency of Treatment 1-2x/week Duration of Treatment 2 months Plan of Care Start Date 10/27/21 Plan of Care End Date 12/25/21 Next Visit Focus/Plan Next Note Type Treatment Note Next Visit Plan STM to cranium & jaw region, cervical mobs,Jaw mobs, work on posture
--- NOTE | 2021-11-23 11:50 | PT.OTN ---
Current Diagnoses Otalgia, unspecified ear (11/23/21) Unspecified temporomandibular joint disorder, unspecified side (11/23/21) Abnormal posture (11/23/21) Physical Therapy Treatment Note PT-OP-A Visit Information Start: 10/26/21 17:45 Freq: Status: Active Protocol: Document 11/23/21 09:05 [facility] (Rec: 11/23/21 11:50 [facility] [id number]) Out-Patient Physical Therapy Visit Information Visit Information Visit Type Treatment Note Visit Note 04/20 Visit Start Time 09:05 Visit Stop Time 09:45 Total Visit Minutes 40 Visit Number 8 Number of MUSEUM HOST/HOSTESS Visits 0 PT-OP-B Current Condition Start: 10/26/21 17:45 Freq: Status: Active Protocol: Document 10/27/21 10:34 [facility] (Rec: 10/27/21 13:09 [facility] [id number]) Current Condition History of Current Condition Onset Date over 1 year Current Complaints L ear History of Current Condition Pt reports L ear pain that he went to the MD for and was referred to Dr. Echevarria. He was given 2 hearing tests and multiple exams and he couldn't find anything wrong. He went to the dentist and had a tooth pulled and it improved it about 50% less than 2 months ago. Pt reports there is a tooth on the R side that will need a crown replaced and a partial cap came off one on L side and there is another that they may have to pull (he is unsure why). Pt is unsure how they will decide it will need to be pulled.He feels like it is plugged up like when crossing the [place] all the time jnow and sometimes can relieve it by pushign on ear. Pt hurts and echos when he talks but not as much of a problem when others talks. Pt reprots he has a history of neck and back problems all the way to his tailbone. It has been tolerable. He sees a chiro regularly and that helps to manage his back and neck pain and has had shots in the past to help manage that. Chiro has tried one adjustment to jaw region and that did not help w/the pain. Pt reports the L ear pain is with him for about 2/3 of the day. It does not give him trouble at night and it is gone before he goes to bed. Comes on shortly after he gets up. He doesn't notice it in the middle of the night when he gets up to go to the bathroom. He has had a recent hearing test and L>R has nominally worse hearing. Last week he fell d/t turning and reaching backwards, and landed face down onto his chainsaw and he heard pops. It hurts to take a deep breath or sneeze. Pt reports he gets dizziness occasionally unsure what brings it on. Has not passed out. Reports he has been doing exercises recenty including sit<>stands. Pt reports he has goten AUGUSTE lately over the last 2-3 months not daily but occasional. AUGUSTE at temporal region. He thinks the AUGUSTE may occur when the ear is worse. AUGUSTE when he gets them get ot be about 7-8/10. Someone talking loud can cause sharp pain into the ear. Treatment Goals Patient/Caregiver Goals get rid of ear pain. PT-OP-C Subjective Start: 10/26/21 17:45 Freq: Status: Active Protocol: Document 11/23/21 09:05 [facility] (Rec: 11/23/21 11:50 [facility] [id number]) OP-PT Subjective Patient Comments Patient Comments Pt reports his ear pain has been worse for the past 2.5 days. It started partway through Sat. He had to take ibuprofen to go to bed. Everything was normal when started no change. mostly pain w/talking. Eating not a problem. Pt is going to make an appt w/dentist Patient Reported Progress Improving PT-OP-F Manual Assessment Start: 10/26/21 17:45 Freq: Status: Active Protocol: Document 10/27/21 10:34 [facility] (Rec: 10/27/21 13:09 [facility] [id number]) Manual Assessments Soft Tissue Assessment Soft Tissue Mobility Assessment tightness and tenderness to L> R temporalis, masseter, digastric, L post and inf jaw, SCM Joint Mobility Assessment Joint Mobility Assessment jaw protrudes fwd in socket w/ opening L>R and roel post w/ R w/closing PT-OP-J Posture/Palpation/Skin Start: 10/26/21 17:45 Freq: Status: Active Protocol: Document 10/27/21 10:34 [facility] (Rec: 10/27/21 13:09 [facility] [id number]) Posture Evaluation Comments Posture Comments fwd rounded shoulders & fwd neck, jaw deviated slightly L PT-OP-K Range of Motion Start: 10/26/21 17:45 Freq: Status: Active Protocol: Document 10/27/21 10:34 [facility] (Rec: 10/27/21 13:09 [facility] [id number]) Cervical Spine Range of Motion Cervical Spine Active Degrees Flexion 34 Extension 33 Rotation Left 51 Rotation Right 46 Lateral Flexion Left 17 Lateral Flexion Right 20 Comments no change w/ear plug feeling TMJ Range of Motion Jaw Openning Jaw Openning (mm) 40 Comments Comments jaw deviation sliglty greater to R but no pain; noted pain after 3x jaw opening w/closing jaw PT-OP-L Special Tests Start: 10/26/21 17:45 Freq: Status: Active Protocol: Document 10/27/21 10:34 [facility] (Rec: 10/27/21 13:09 [facility] [id number]) Special Tests Cervical Spine Special Tests Spurling's Test Test Results neg Alar Ligament Test Results neg PT-OP-Q Treatments Start: 10/26/21 17:45 Freq: Status: Active Protocol: Document 11/23/21 09:05 [facility] (Rec: 11/23/21 11:50 [facility] [id number]) Manual Therapy Treatment Soft Tissue Mobilization cervical Body Location SCM & scalenes & SOR Mobilization Type Rolling,Sustained Pressure Intensity/Depth Moderate Body Position Supine jaw Body Location inf jaw line & L masseter Mobilization Type Rolling Intensity/Depth Moderate Body Position Supine Comments manual Joint Mobilizations Cervical Grade II Comments 1. C2 transverse R Self-Care/Home Management Treatment Education Other Education Discussion to pt to ask further why she doesn't hear him if it is because his voice is too quiet or d/t him not speaking clearly. Edu to pay attention and jot down what causes pain to inc when it does. Discussed w/pt that unsure why pain when upright vs supine d/t pt having no pain w/any neck positions PT placed pt in (flex, protrusion , ext, SB, rot & combo of movements-active and passive holds) Activities Self-Care/Home Management Activities supine BP: 118/68 seated BP: 116/68 PT-OP-T Assessment and Plan Start: 10/26/21 17:45 Freq: Status: Active Protocol: Document 11/23/21 09:05 [facility] (Rec: 11/23/21 11:50 [facility] [id number]) Physical Therapy Assessment Goals ear pain Short Term Goal (STG) pt will report a further 50% reduction in muffling, pain, and clogged symptoms in L ear. STG Duration 11/24/21 [facility] Goal (LTG) Pt will improve to having no more L ear pain, muffling, or clogged feeling. LTG Duration 12/25/21 jaw opening Rand Cementer Goal (LTG) Pt will be able to open/close jaw w/o inc ear pain. LTG Duration 12/25/21 Assessment Summary Assessment Pt reports feeling normal after session w/no muffling and no pain in L ear even upon sittign and standing up. He does not have change in BP with supine to sit and no neck positions in supine bring on his ear pain and pt is always comfortable w/o ear pain in supine. Physical Therapy Plan Frequency and Duration Frequency of Treatment 1-2x/week Duration of Treatment 2 months Plan of Care Start Date 10/27/21 Plan of Care End Date 12/25/21 Next Visit Focus/Plan Next Note Type Treatment Note Next Visit Plan STM to cranium & jaw region, cervical mobs,Jaw mobs, work on posture
--- NOTE | 2021-11-26 09:45 | PT.OTN ---
Current Diagnoses Otalgia, unspecified ear (11/26/21) Unspecified temporomandibular joint disorder, unspecified side (11/26/21) Abnormal posture (11/26/21) Physical Therapy Treatment Note PT-OP-A Visit Information Start: 10/26/21 17:45 Freq: Status: Active Protocol: Document 11/26/21 09:05 [facility] (Rec: 11/26/21 09:48 [facility] [id number]) Out-Patient Physical Therapy Visit Information Visit Information Visit Type Treatment Note Visit Note 05/21- PN next visit Visit Start Time 09:05 Visit Stop Time 09:45 Total Visit Minutes 40 Visit Number 9 Number of HUMAN SERVICES CASE MANAGER Visits 1 PT-OP-B Current Condition Start: 10/26/21 17:45 Freq: Status: Active Protocol: Document 10/27/21 10:34 [facility] (Rec: 10/27/21 13:09 [facility] [id number]) Current Condition History of Current Condition Onset Date over 1 year Current Complaints L ear History of Current Condition Pt reports L ear pain that he went to the MD for and was referred to Dr. Echevarria. He was given 2 hearing tests and multiple exams and he couldn't find anything wrong. He went to the dentist and had a tooth pulled and it improved it about 50% less than 2 months ago. Pt reports there is a tooth on the R side that will need a crown replaced and a partial cap came off one on L side and there is another that they may have to pull (he is unsure why). Pt is unsure how they will decide it will need to be pulled.He feels like it is plugged up like when crossing the [place] pass all the time jnow and sometimes can relieve it by pushign on ear. Pt hurts and echos when he talks but not as much of a problem when others talks. Pt reprots he has a history of neck and back problems all the way to his tailbone. It has been tolerable. He sees a chiro regularly and that helps to manage his back and neck pain and has had shots in the past to help manage that. Chiro has tried one adjustment to jaw region and that did not help w/the pain. Pt reports the L ear pain is with him for about 2/3 of the day. It does not give him trouble at night and it is gone before he goes to bed. Comes on shortly after he gets up. He doesn't notice it in the middle of the night when he gets up to go to the bathroom. He has had a recent hearing test and L>R has nominally worse hearing. Last week he fell d/t turning and reaching backwards, and landed face down onto his chainsaw and he heard pops. It hurts to take a deep breath or sneeze. Pt reports he gets dizziness occasionally unsure what brings it on. Has not passed out. Reports he has been doing exercises recenty including sit<>stands. Pt reports he has goten AUGUSTE lately over the last 2-3 months not daily but occasional. AUGUSTE at temporal region. He thinks the AUGUSTE may occur when the ear is worse. AUGUSTE when he gets them get ot be about 7-8/10. Someone talking loud can cause sharp pain into the ear. Treatment Goals Patient/Caregiver Goals get rid of ear pain. PT-OP-C Subjective Start: 10/26/21 17:45 Freq: Status: Active Protocol: Document 11/26/21 09:05 [facility] (Rec: 11/26/21 09:48 [facility] [id number]) OP-PT Subjective Patient Comments Patient Comments Pt reports still same muffle has appt with dentist in 2 weeks. States muffling consistant through day, if presses on L TMJ can stop pain and hear more clearly. PT-OP-F Manual Assessment Start: 10/26/21 17:45 Freq: Status: Active Protocol: Document 10/27/21 10:34 [facility] (Rec: 10/27/21 13:09 [facility] [id number]) Manual Assessments Soft Tissue Assessment Soft Tissue Mobility Assessment tightness and tenderness to L> R temporalis, masseter, digastric, L post and inf jaw, SCM Joint Mobility Assessment Joint Mobility Assessment jaw protrudes fwd in socket w/ opening L>R and roel post w/ R w/closing PT-OP-J Posture/Palpation/Skin Start: 10/26/21 17:45 Freq: Status: Active Protocol: Document 10/27/21 10:34 [facility] (Rec: 10/27/21 13:09 [facility] [id number]) Posture Evaluation Comments Posture Comments fwd rounded shoulders & fwd neck, jaw deviated slightly L PT-OP-K Range of Motion Start: 10/26/21 17:45 Freq: Status: Active Protocol: Document 10/27/21 10:34 [facility] (Rec: 10/27/21 13:09 [facility] [id number]) Cervical Spine Range of Motion Cervical Spine Active Degrees Flexion 34 Extension 33 Rotation Left 51 Rotation Right 46 Lateral Flexion Left 17 Lateral Flexion Right 20 Comments no change w/ear plug feeling TMJ Range of Motion Jaw Openning Jaw Openning (mm) 40 Comments Comments jaw deviation sliglty greater to R but no pain; noted pain after 3x jaw opening w/closing jaw PT-OP-L Special Tests Start: 10/26/21 17:45 Freq: Status: Active Protocol: Document 10/27/21 10:34 [facility] (Rec: 10/27/21 13:09 [facility] [id number]) Special Tests Cervical Spine Special Tests Spurling's Test Test Results neg Alar Ligament Test Results neg PT-OP-Q Treatments Start: 10/26/21 17:45 Freq: Status: Active Protocol: Document 11/26/21 09:05 [facility] (Rec: 11/26/21 09:48 [facility] [id number]) Therapeutic Exercises Supine Exercises chin tuck Supine Exercise Name reviewed Reps/Minutes 5 x10 Comments good form, cued mandible alignment deviate R neutral Sitting Exercises rocabado Sitting Exercise Name isometric at R: mandible deviation R then slow open/ close mantain neutral Resistance manual therapist then instructed self use finger Reps/Minutes x6 reps each Comments occasional cues- reported pain free (supine, seated, standing) Standing Exercises shld ext Standing Exercise Name added to HEP Resistance TB #1 Reps/Minutes 2x5 Comments cued trunk, CS back neutral, self mandible deviate R neutral:painfree L ear Manual Therapy Treatment Soft Tissue Mobilization cervical Body Location SCM & scalenes & SOR Mobilization Type Rolling,Sustained Pressure Intensity/Depth Moderate Body Position Supine cranial Body Location R temporalis Mobilization Type Cross-Friction,Myofascial Release Intensity/Depth Superficial Body Position Supine Comments manual and self education, gentle yaima pressure jaw Body Location inf jaw line & L masseter Mobilization Type Rolling Intensity/Depth Moderate Body Position Supine Comments manual PT-OP-T Assessment and Plan Start: 10/26/21 17:45 Freq: Status: Active Protocol: Document 11/26/21 09:05 [facility] (Rec: 11/26/21 09:48 [facility] [id number]) Physical Therapy Assessment Goals ear pain Short Term Goal (STG) pt will report a further 50% reduction in muffling, pain, and clogged symptoms in L ear. 11/26/21: not consistant, progressing: no muffling or L ear pain post ed for mandible alignment to R neutral during supine/ seated/ stand exercises. STG Duration 11/24/21 (11/26/21: not consistant: progressing) It Security Manager Goal (LTG) Pt will improve to having no more L ear pain, muffling, or clogged feeling. LTG Duration 12/25/21 jaw opening Half-Way Goal (LTG) Pt will be able to open/close jaw w/o inc ear pain. LTG Duration 12/25/21 Assessment Summary Assessment Pt had no pain post manual and isometric mandible deviation neutral to R against therapist then self resistance. He was able to maintain alignment during seat speech, jaw ex and added standing shd ext against resistance ex. Physical Therapy Plan Frequency and Duration Frequency of Treatment 1-2x/week Duration of Treatment 2 months Plan of Care Start Date 10/27/21 Plan of Care End Date 12/25/21 Therapeutic Interventions Therapeutic Interventions Home Exercise Program,Joint Mobilizations,Manual Therapy, Neuromuscular Re-education, Patient/Caregiver Education, Self-Care/Home Management,Soft Tissue Mobilization,Taping, Therapeutic Activities, Therapeutic Exercises Modalities Cold Pack/Ice Massage,Hot Packs Next Visit Focus/Plan Next Note Type Treatment Note Next Visit Plan Assess response to mandible deviation to R isometric and added to open close and shld ext against resistance. Dental appt 2 weeks. POC: STM to cranium & jaw region, cervical mobs,Jaw mobs , work on posture
--- NOTE | 2021-11-30 17:35 | PT.OTN ---
Current Diagnoses Otalgia, unspecified ear (11/30/21) Unspecified temporomandibular joint disorder, unspecified side (11/30/21) Abnormal posture (11/30/21) Physical Therapy Treatment Note PT-OP-A Visit Information Start: 10/26/21 17:45 Freq: Status: Active Protocol: Document 11/30/21 17:29 [facility] (Rec: 12/01/21 09:35 [facility] [id number]) Out-Patient Physical Therapy Visit Information Visit Information Visit Type Progress Note Visit Note 09/20 Visit Start Time 15:21 Visit Stop Time 16:02 Total Visit Minutes 41 Visit Number 10 Number of SENIOR BUSINESS DEVELOPMENT ANALYST Visits 0 PT-OP-B Current Condition Start: 10/26/21 17:45 Freq: Status: Active Protocol: Document 10/27/21 10:34 [facility] (Rec: 10/27/21 13:09 [facility] [id number]) Current Condition History of Current Condition Onset Date over 1 year Current Complaints L ear History of Current Condition Pt reports L ear pain that he went to the MD for and was referred to Dr. Echevarria. He was given 2 hearing tests and multiple exams and he couldn't find anything wrong. He went to the dentist and had a tooth pulled and it improved it about 50% less than 2 months ago. Pt reports there is a tooth on the R side that will need a crown replaced and a partial cap came off one on L side and there is another that they may have to pull (he is unsure why). Pt is unsure how they will decide it will need to be pulled.He feels like it is plugged up like when crossing the [place] pass all the time jnow and sometimes can relieve it by pushign on ear. Pt hurts and echos when he talks but not as much of a problem when others talks. Pt reprots he has a history of neck and back problems all the way to his tailbone. It has been tolerable. He sees a chiro regularly and that helps to manage his back and neck pain and has had shots in the past to help manage that. Chiro has tried one adjustment to jaw region and that did not help w/the pain. Pt reports the L ear pain is with him for about 2/3 of the day. It does not give him trouble at night and it is gone before he goes to bed. Comes on shortly after he gets up. He doesn't notice it in the middle of the night when he gets up to go to the bathroom. He has had a recent hearing test and L>R has nominally worse hearing. Last week he fell d/t turning and reaching backwards, and landed face down onto his chainsaw and he heard pops. It hurts to take a deep breath or sneeze. Pt reports he gets dizziness occasionally unsure what brings it on. Has not passed out. Reports he has been doing exercises recenty including sit<>stands. Pt reports he has goten AUGUSTE lately over the last 2-3 months not daily but occasional. AUGUSTE at temporal region. He thinks the AUGUSTE may occur when the ear is worse. AUGUSTE when he gets them get ot be about 7-8/10. Someone talking loud can cause sharp pain into the ear. Treatment Goals Patient/Caregiver Goals get rid of ear pain. PT-OP-C Subjective Start: 10/26/21 17:45 Freq: Status: Active Protocol: Document 11/30/21 17:29 [facility] (Rec: 12/01/21 09:35 [facility] [id number]) OP-PT Subjective Patient Comments Patient Comments Pt sees Dentist nex Monday. pt reports daily gets muffling and pain. Notes it was doing better until last weekend. Unsure how long PT-OP-F Manual Assessment Start: 10/26/21 17:45 Freq: Status: Active Protocol: Document 10/27/21 10:34 [facility] (Rec: 10/27/21 13:09 [facility] [id number]) Manual Assessments Soft Tissue Assessment Soft Tissue Mobility Assessment tightness and tenderness to L> R temporalis, masseter, digastric, L post and inf jaw, SCM Joint Mobility Assessment Joint Mobility Assessment jaw protrudes fwd in socket w/ opening L>R and roel post w/ R w/closing PT-OP-J Posture/Palpation/Skin Start: 10/26/21 17:45 Freq: Status: Active Protocol: Document 10/27/21 10:34 [facility] (Rec: 10/27/21 13:09 [facility] [id number]) Posture Evaluation Comments Posture Comments fwd rounded shoulders & fwd neck, jaw deviated slightly L PT-OP-K Range of Motion Start: 10/26/21 17:45 Freq: Status: Active Protocol: Document 10/27/21 10:34 [facility] (Rec: 10/27/21 13:09 [facility] [id number]) Cervical Spine Range of Motion Cervical Spine Active Degrees Flexion 34 Extension 33 Rotation Left 51 Rotation Right 46 Lateral Flexion Left 17 Lateral Flexion Right 20 Comments no change w/ear plug feeling TMJ Range of Motion Jaw Openning Jaw Openning (mm) 40 Comments Comments jaw deviation sliglty greater to R but no pain; noted pain after 3x jaw opening w/closing jaw PT-OP-L Special Tests Start: 10/26/21 17:45 Freq: Status: Active Protocol: Document 10/27/21 10:34 [facility] (Rec: 10/27/21 13:09 [facility] [id number]) Special Tests Cervical Spine Special Tests Spurling's Test Test Results neg Alar Ligament Test Results neg PT-OP-Q Treatments Start: 10/26/21 17:45 Freq: Status: Active Protocol: Document 11/30/21 17:29 [facility] (Rec: 12/01/21 09:35 [facility] [id number]) Self-Care/Home Management Treatment Education Other Education edu to pt that stretching machine operator may be another provider to consult; edu to tell dentist about his current issues w/ear /jaw painand that he has been working on jaw and upper neck; edu to pt to pay attention to how long PT improvements last PT-OP-T Assessment and Plan Start: 10/26/21 17:45 Freq: Status: Active Protocol: Document 11/30/21 17:29 [facility] (Rec: 12/01/21 09:35 [facility] [id number]) Physical Therapy Assessment Goals ear pain Short Term Goal (STG) pt will report a further 50% reduction in muffling, pain, and clogged symptoms in L ear. 11/26/21: not consistant, progressing: no muffling or L ear pain post ed for mandible alignment to R neutral during supine/ seated/ stand exercises. 11/30-was down 50% until 1.5 weeks ago when had flare up STG Duration 11/24/21 (11/26/21: not consistant: progressing) Penitentiary Goal (LTG) Pt will improve to having no more L ear pain, muffling, or clogged feeling. LTG Duration 12/25/21 jaw opening Alarm Installation Technician Goal (LTG) Pt will be able to open/close jaw w/o inc ear pain. LTG Duration achieved 11/30 Assessment Summary Assessment Pt no longer has ear pain w/ jaw ROM, but does still have ear pain that is worse when he is talking or being talked to . he had noted improvement w/ ear pain until last Sat when it got worse again. He still has much improvement w/PT sessions but is unsure how long it lasts and was asked to monitor this. Physical Therapy Plan Frequency and Duration Frequency of Treatment 1-2x/week Duration of Treatment 2 months Plan of Care Start Date 10/27/21 Plan of Care End Date 12/25/21 Next Visit Focus/Plan Next Note Type Treatment Note Next Visit Plan cont to wrok on postural stability, try cervical isometrics w/TP self resistance w/chin tuck
--- NOTE | 2021-11-30 17:55 | PT.OPPN ---
Current Diagnoses Otalgia, unspecified ear (12/02/21) Unspecified temporomandibular joint disorder, unspecified side (12/02/21) Abnormal posture (12/02/21) Physical Therapy Progress Note PT-OP-A Visit Information Start: 10/26/21 17:45 Freq: Status: Active Protocol: Document 11/30/21 17:29 [facility] (Rec: 12/01/21 09:35 [facility] [id number]) Out-Patient Physical Therapy Visit Information Visit Information Visit Type Progress Note Visit Note 09/20 Visit Start Time 15:21 Visit Stop Time 16:02 Total Visit Minutes 41 Visit Number 10 Number of DINING CAR CONDUCTOR Visits 0 PT-OP-B Current Condition Start: 10/26/21 17:45 Freq: Status: Active Protocol: Document 10/27/21 10:34 [facility] (Rec: 10/27/21 13:09 [facility] [id number]) Current Condition History of Current Condition Onset Date over 1 year Current Complaints L ear History of Current Condition Pt reports L ear pain that he went to the MD for and was referred to Dr. Echevarria. He was given 2 hearing tests and multiple exams and he couldn't find anything wrong. He went to the dentist and had a tooth pulled and it improved it about 50% less than 2 months ago. Pt reports there is a tooth on the R side that will need a crown replaced and a partial cap came off one on L side and there is another that they may have to pull (he is unsure why). Pt is unsure how they will decide it will need to be pulled.He feels like it is plugged up like when crossing the [place] pass all the time jnow and sometimes can relieve it by pushign on ear. Pt hurts and echos when he talks but not as much of a problem when others talks. Pt reprots he has a history of neck and back problems all the way to his tailbone. It has been tolerable. He sees a chiro regularly and that helps to manage his back and neck pain and has had shots in the past to help manage that. Chiro has tried one adjustment to jaw region and that did not help w/the pain. Pt reports the L ear pain is with him for about 2/3 of the day. It does not give him trouble at night and it is gone before he goes to bed. Comes on shortly after he gets up. He doesn't notice it in the middle of the night when he gets up to go to the bathroom. He has had a recent hearing test and L>R has nominally worse hearing. Last week he fell d/t turning and reaching backwards, and landed face down onto his chainsaw and he heard pops. It hurts to take a deep breath or sneeze. Pt reports he gets dizziness occasionally unsure what brings it on. Has not passed out. Reports he has been doing exercises recenty including sit<>stands. Pt reports he has goten AUGUSTE lately over the last 2-3 months not daily but occasional. AUGUSTE at temporal region. He thinks the AUGUSTE may occur when the ear is worse. AUGUSTE when he gets them get ot be about 7-8/10. Someone talking loud can cause sharp pain into the ear. Treatment Goals Patient/Caregiver Goals get rid of ear pain. PT-OP-C Subjective Start: 10/26/21 17:45 Freq: Status: Active Protocol: Document 11/30/21 17:29 [facility] (Rec: 12/01/21 09:35 [facility] [id number]) OP-PT Subjective Patient Comments Patient Comments Pt sees Dentist nex Monday. pt reports daily gets muffling and pain. Notes it was doing better until last weekend. Unsure how long PT-OP-F Manual Assessment Start: 10/26/21 17:45 Freq: Status: Active Protocol: Document 10/27/21 10:34 [facility] (Rec: 10/27/21 13:09 [facility] [id number]) Manual Assessments Soft Tissue Assessment Soft Tissue Mobility Assessment tightness and tenderness to L> R temporalis, masseter, digastric, L post and inf jaw, SCM Joint Mobility Assessment Joint Mobility Assessment jaw protrudes fwd in socket w/ opening L>R and roel post w/ R w/closing PT-OP-J Posture/Palpation/Skin Start: 10/26/21 17:45 Freq: Status: Active Protocol: Document 10/27/21 10:34 [facility] (Rec: 10/27/21 13:09 [facility] [id number]) Posture Evaluation Comments Posture Comments fwd rounded shoulders & fwd neck, jaw deviated slightly L PT-OP-K Range of Motion Start: 10/26/21 17:45 Freq: Status: Active Protocol: Document 10/27/21 10:34 [facility] (Rec: 10/27/21 13:09 [facility] [id number]) Cervical Spine Range of Motion Cervical Spine Active Degrees Flexion 34 Extension 33 Rotation Left 51 Rotation Right 46 Lateral Flexion Left 17 Lateral Flexion Right 20 Comments no change w/ear plug feeling TMJ Range of Motion Jaw Openning Jaw Openning (mm) 40 Comments Comments jaw deviation sliglty greater to R but no pain; noted pain after 3x jaw opening w/closing jaw PT-OP-L Special Tests Start: 10/26/21 17:45 Freq: Status: Active Protocol: Document 10/27/21 10:34 [facility] (Rec: 10/27/21 13:09 [facility] [id number]) Special Tests Cervical Spine Special Tests Spurling's Test Test Results neg Alar Ligament Test Results neg PT-OP-T Assessment and Plan Start: 10/26/21 17:45 Freq: Status: Active Protocol: Document 11/30/21 17:29 [facility] (Rec: 12/01/21 09:35 [facility] [id number]) Physical Therapy Assessment Goals ear pain Short Term Goal (STG) pt will report a further 50% reduction in muffling, pain, and clogged symptoms in L ear. 11/26/21: not consistant, progressing: no muffling or L ear pain post ed for mandible alignment to R neutral during supine/ seated/ stand exercises. 11/30-was down 50% until 1.5 weeks ago when had flare up STG Duration 11/24/21 (11/26/21: not consistant: progressing) Prison Goal (LTG) Pt will improve to having no more L ear pain, muffling, or clogged feeling. LTG Duration 12/25/21 jaw opening Manager Retail Goal (LTG) Pt will be able to open/close jaw w/o inc ear pain. LTG Duration achieved 11/30 Assessment Summary Assessment Pt no longer has ear pain w/ jaw ROM, but does still have ear pain that is worse when he is talking or being talked to . he had noted improvement w/ ear pain until last Sat when it got worse again. He still has much improvement w/PT sessions but is unsure how long it lasts and was asked to monitor this. Physical Therapy Plan Frequency and Duration Frequency of Treatment 1-2x/week Duration of Treatment 2 months Plan of Care Start Date 10/27/21 Plan of Care End Date 12/25/21 Next Visit Focus/Plan Next Note Type Treatment Note Next Visit Plan cont to wrok on postural stability, try cervical isometrics w/TP self resistance w/chin tuck
--- NOTE | 2021-12-02 11:37 | PT.OTN ---
Current Diagnoses Otalgia, unspecified ear (12/02/21) Unspecified temporomandibular joint disorder, unspecified side (12/02/21) Abnormal posture (12/02/21) Physical Therapy Treatment Note PT-OP-A Visit Information Start: 10/26/21 17:45 Freq: Status: Active Protocol: Document 12/02/21 08:55 [facility] (Rec: 12/02/21 11:37 [facility] [id number]) Out-Patient Physical Therapy Visit Information Visit Information Visit Type Treatment Note Visit Note 10/21 Visit Start Time 09:05 Visit Stop Time 09:45 Total Visit Minutes 40 Visit Number 11 Number of HAND SPLITTER Visits 0 PT-OP-B Current Condition Start: 10/26/21 17:45 Freq: Status: Active Protocol: Document 10/27/21 10:34 [facility] (Rec: 10/27/21 13:09 [facility] [id number]) Current Condition History of Current Condition Onset Date over 1 year Current Complaints L ear History of Current Condition Pt reports L ear pain that he went to the MD for and was referred to Dr. Echevarria. He was given 2 hearing tests and multiple exams and he couldn't find anything wrong. He went to the dentist and had a tooth pulled and it improved it about 50% less than 2 months ago. Pt reports there is a tooth on the R side that will need a crown replaced and a partial cap came off one on L side and there is another that they may have to pull (he is unsure why). Pt is unsure how they will decide it will need to be pulled.He feels like it is plugged up like when crossing the [place] pass all the time jnow and sometimes can relieve it by pushign on ear. Pt hurts and echos when he talks but not as much of a problem when others talks. Pt reprots he has a history of neck and back problems all the way to his tailbone. It has been tolerable. He sees a chiro regularly and that helps to manage his back and neck pain and has had shots in the past to help manage that. Chiro has tried one adjustment to jaw region and that did not help w/the pain. Pt reports the L ear pain is with him for about 2/3 of the day. It does not give him trouble at night and it is gone before he goes to bed. Comes on shortly after he gets up. He doesn't notice it in the middle of the night when he gets up to go to the bathroom. He has had a recent hearing test and L>R has nominally worse hearing. Last week he fell d/t turning and reaching backwards, and landed face down onto his chainsaw and he heard pops. It hurts to take a deep breath or sneeze. Pt reports he gets dizziness occasionally unsure what brings it on. Has not passed out. Reports he has been doing exercises recenty including sit<>stands. Pt reports he has goten AUGUSTE lately over the last 2-3 months not daily but occasional. AUGUSTE at temporal region. He thinks the AUGUSTE may occur when the ear is worse. AUGUSTE when he gets them get ot be about 7-8/10. Someone talking loud can cause sharp pain into the ear. Treatment Goals Patient/Caregiver Goals get rid of ear pain. PT-OP-C Subjective Start: 10/26/21 17:45 Freq: Status: Active Protocol: Document 12/02/21 08:55 [facility] (Rec: 12/02/21 11:37 [facility] [id number]) OP-PT Subjective Patient Comments Patient Comments Pt reports feeling the best he has overall for a really long time after last visit but it only lasted 1 hour. PT-OP-F Manual Assessment Start: 10/26/21 17:45 Freq: Status: Active Protocol: Document 10/27/21 10:34 [facility] (Rec: 10/27/21 13:09 [facility] [id number]) Manual Assessments Soft Tissue Assessment Soft Tissue Mobility Assessment tightness and tenderness to L> R temporalis, masseter, digastric, L post and inf jaw, SCM Joint Mobility Assessment Joint Mobility Assessment jaw protrudes fwd in socket w/ opening L>R and roel post w/ R w/closing PT-OP-J Posture/Palpation/Skin Start: 10/26/21 17:45 Freq: Status: Active Protocol: Document 10/27/21 10:34 [facility] (Rec: 10/27/21 13:09 [facility] [id number]) Posture Evaluation Comments Posture Comments fwd rounded shoulders & fwd neck, jaw deviated slightly L PT-OP-K Range of Motion Start: 10/26/21 17:45 Freq: Status: Active Protocol: Document 10/27/21 10:34 [facility] (Rec: 10/27/21 13:09 [facility] [id number]) Cervical Spine Range of Motion Cervical Spine Active Degrees Flexion 34 Extension 33 Rotation Left 51 Rotation Right 46 Lateral Flexion Left 17 Lateral Flexion Right 20 Comments no change w/ear plug feeling TMJ Range of Motion Jaw Openning Jaw Openning (mm) 40 Comments Comments jaw deviation sliglty greater to R but no pain; noted pain after 3x jaw opening w/closing jaw PT-OP-L Special Tests Start: 10/26/21 17:45 Freq: Status: Active Protocol: Document 10/27/21 10:34 [facility] (Rec: 10/27/21 13:09 [facility] [id number]) Special Tests Cervical Spine Special Tests Spurling's Test Test Results neg Alar Ligament Test Results neg PT-OP-Q Treatments Start: 10/26/21 17:45 Freq: Status: Active Protocol: Document 12/02/21 08:55 [facility] (Rec: 12/02/21 11:37 [facility] [id number]) Therapeutic Exercises Supine Exercises chin tuck Supine Exercise Name w/PT then pt trained PA pressure at TP Side bilateral Reps/Minutes 10-15 sec holds & mult at each Comments @ C3- C5 Sitting Exercises scap retraction/ chest lift/CS neutral/ head nod Reps/Minutes 5 sec hold x6 Manual Therapy Treatment Soft Tissue Mobilization cranial Body Location R temporalis & cranial fascia Mobilization Type Cross-Friction,Myofascial Release Intensity/Depth Superficial Body Position Supine Joint Mobilizations cranial Comments zygomatic arch L inf glide FM coronal sutrue PA FM temporoparietal suture inf L>R sagital suture L lat FM sphenoid R to L FM PT-OP-T Assessment and Plan Start: 10/26/21 17:45 Freq: Status: Active Protocol: Document 12/02/21 08:55 [facility] (Rec: 12/02/21 11:37 [facility] [id number]) Physical Therapy Assessment Goals ear pain Short Term Goal (STG) pt will report a further 50% reduction in muffling, pain, and clogged symptoms in L ear. 11/26/21: not consistant, progressing: no muffling or L ear pain post ed for mandible alignment to R neutral during supine/ seated/ stand exercises. 11/30-was down 50% until 1.5 weeks ago when had flare up STG Duration 11/24/21 (11/26/21: not consistant: progressing) Casino Cashier Goal (LTG) Pt will improve to having no more L ear pain, muffling, or clogged feeling. LTG Duration 12/25/21 jaw opening Casino Cashier Goal (LTG) Pt will be able to open/close jaw w/o inc ear pain. LTG Duration achieved 11/30 Assessment Summary Assessment Pt is doing better today w/ cervical positioning but does show less stabiltiy more cranially in segments so focus was there. He came in today w /less c/o his ear symptoms overall. Physical Therapy Plan Frequency and Duration Frequency of Treatment 1-2x/week Duration of Treatment 2 months Plan of Care Start Date 10/27/21 Plan of Care End Date 12/25/21 Next Visit Focus/Plan Next Note Type Treatment Note Next Visit Plan cont to work cranially to improve pt symptoms
--- NOTE | 2021-12-16 18:30 | PT.OTN ---
Current Diagnoses Otalgia, unspecified ear (12/16/21) Unspecified temporomandibular joint disorder, unspecified side (12/16/21) Abnormal posture (12/16/21) Physical Therapy Treatment Note PT-OP-A Visit Information Start: 10/26/21 17:45 Freq: Status: Active Protocol: Document 12/16/21 13:18 [facility] (Rec: 12/16/21 18:30 [facility] [id number]) Out-Patient Physical Therapy Visit Information Visit Information Visit Type Progress Note Visit Note 09/20 Visit Start Time 14:35 Visit Stop Time 15:15 Total Visit Minutes 40 Visit Number 12 Number of CHIEF LOAD DISPATCHER Visits 0 PT-OP-B Current Condition Start: 10/26/21 17:45 Freq: Status: Active Protocol: Document 10/27/21 10:34 [facility] (Rec: 10/27/21 13:09 [facility] [id number]) Current Condition History of Current Condition Onset Date over 1 year Current Complaints L ear History of Current Condition Pt reports L ear pain that he went to the MD for and was referred to Dr. Echevarria. He was given 2 hearing tests and multiple exams and he couldn't find anything wrong. He went to the dentist and had a tooth pulled and it improved it about 50% less than 2 months ago. Pt reports there is a tooth on the R side that will need a crown replaced and a partial cap came off one on L side and there is another that they may have to pull (he is unsure why). Pt is unsure how they will decide it will need to be pulled.He feels like it is plugged up like when crossing the [place] pass all the time jnow and sometimes can relieve it by pushign on ear. Pt hurts and echos when he talks but not as much of a problem when others talks. Pt reprots he has a history of neck and back problems all the way to his tailbone. It has been tolerable. He sees a chiro regularly and that helps to manage his back and neck pain and has had shots in the past to help manage that. Chiro has tried one adjustment to jaw region and that did not help w/the pain. Pt reports the L ear pain is with him for about 2/3 of the day. It does not give him trouble at night and it is gone before he goes to bed. Comes on shortly after he gets up. He doesn't notice it in the middle of the night when he gets up to go to the bathroom. He has had a recent hearing test and L>R has nominally worse hearing. Last week he fell d/t turning and reaching backwards, and landed face down onto his chainsaw and he heard pops. It hurts to take a deep breath or sneeze. Pt reports he gets dizziness occasionally unsure what brings it on. Has not passed out. Reports he has been doing exercises recenty including sit<>stands. Pt reports he has goten AUGUSTE lately over the last 2-3 months not daily but occasional. AUGUSTE at temporal region. He thinks the AUGUSTE may occur when the ear is worse. AUGUSTE when he gets them get ot be about 7-8/10. Someone talking loud can cause sharp pain into the ear. Treatment Goals Patient/Caregiver Goals get rid of ear pain. PT-OP-C Subjective Start: 10/26/21 17:45 Freq: Status: Active Protocol: Document 12/16/21 13:18 [facility] (Rec: 12/16/21 18:30 [facility] [id number]) OP-PT Subjective Patient Comments Patient Comments Pt reports when he had his ECHO they sent him to [facility] and he was sent [facility]. He has severe Aortic stenosis and plan to get him into surgery by the end of the month. He hasn't had as much sharp pain recently PT-OP-F Manual Assessment Start: 10/26/21 17:45 Freq: Status: Active Protocol: Document 10/27/21 10:34 [facility] (Rec: 10/27/21 13:09 [facility] [id number]) Manual Assessments Soft Tissue Assessment Soft Tissue Mobility Assessment tightness and tenderness to L> R temporalis, masseter, digastric, L post and inf jaw, SCM Joint Mobility Assessment Joint Mobility Assessment jaw protrudes fwd in socket w/ opening L>R and roel post w/ R w/closing PT-OP-J Posture/Palpation/Skin Start: 10/26/21 17:45 Freq: Status: Active Protocol: Document 10/27/21 10:34 [facility] (Rec: 10/27/21 13:09 [facility] [id number]) Posture Evaluation Comments Posture Comments fwd rounded shoulders & fwd neck, jaw deviated slightly L PT-OP-K Range of Motion Start: 10/26/21 17:45 Freq: Status: Active Protocol: Document 10/27/21 10:34 [facility] (Rec: 10/27/21 13:09 [facility] [id number]) Cervical Spine Range of Motion Cervical Spine Active Degrees Flexion 34 Extension 33 Rotation Left 51 Rotation Right 46 Lateral Flexion Left 17 Lateral Flexion Right 20 Comments no change w/ear plug feeling TMJ Range of Motion Jaw Openning Jaw Openning (mm) 40 Comments Comments jaw deviation sliglty greater to R but no pain; noted pain after 3x jaw opening w/closing jaw PT-OP-L Special Tests Start: 10/26/21 17:45 Freq: Status: Active Protocol: Document 10/27/21 10:34 [facility] (Rec: 10/27/21 13:09 [facility] [id number]) Special Tests Cervical Spine Special Tests Spurling's Test Test Results neg Alar Ligament Test Results neg PT-OP-Q Treatments Start: 10/26/21 17:45 Freq: Status: Active Protocol: Document 12/16/21 13:18 [facility] (Rec: 12/16/21 18:30 [facility] [id number]) Therapeutic Exercises Sitting Exercises scap retraction/ chest lift/CS neutral/ head nod Reps/Minutes 5 sec hold x6 Manual Therapy Treatment Soft Tissue Mobilization cervical Body Location SCM & scalenes L>R Mobilization Type Rolling,Sustained Pressure Intensity/Depth Moderate Body Position Supine intraoral Body Location L med ptyergoid & masseter Mobilization Type Sustained Pressure Intensity/Depth Moderate Body Position Hooklying Comments sustained pressure feedback tolerance and w/ MWM open/ close TMJ cranial Body Location R temporalis & cranial fascia Mobilization Type Cross-Friction,Myofascial Release Intensity/Depth Superficial Body Position Supine jaw Body Location inf jaw line & L masseter Mobilization Type Rolling Intensity/Depth Moderate Body Position Supine Comments manual Joint Mobilizations TMJ Joint B distraction w/glide slight R cranial Comments zygomatic arch L inf glide FM coronal sutrue PA FM temporoparietal suture inf L>R sagital suture L lat FM sphenoid R to L FM Cervical Grade II Comments 1. C1 and C2 UPA L PT-OP-T Assessment and Plan Start: 10/26/21 17:45 Freq: Status: Active Protocol: Document 12/16/21 13:18 [facility] (Rec: 12/16/21 18:30 [facility] [id number]) Physical Therapy Assessment Goals ear pain Short Term Goal (STG) pt will report a further 50% reduction in muffling, pain, and clogged symptoms in L ear. 11/26/21: not consistant, progressing: no muffling or L ear pain post ed for mandible alignment to R neutral during supine/ seated/ stand exercises. 11/30-was down 50% until 1.5 weeks ago when had flare up 12/16 pt reports at least 10% now STG Duration 01/15/22 Fdc Goal (LTG) Pt will improve to having no more L ear pain, muffling, or clogged feeling. 12/16: Shocking jab has improved considerably, muffling and clogged slightly improved LTG Duration 02/15 jaw opening Still Operator Batch Or Continuous Goal (LTG) Pt will be able to open/close jaw w/o inc ear pain. LTG Duration achieved 11/30 Assessment Summary Assessment Pt is making progress with therapy, but did have a regression a few weeks ago where symptoms got much worse, but he has recently improved again. He is no longer having pain in ear w/jaw movement and feels better right after his sessions. He does note overall improvement with less of the sharp pain at this time. His dental procedure has been pushed back d/t cardio issues which also may be affecting his progress at this time w/ PT. Plan to cont PT to further dec pt's symptoms. Physical Therapy Plan Frequency and Duration Frequency of Treatment 1-2x/week Duration of Treatment 2 months Plan of Care Start Date 12/16/21 Plan of Care End Date 02/15/22 Therapeutic Interventions Therapeutic Interventions Home Exercise Program,Joint Mobilizations,Manual Therapy, Neuromuscular Re-education, Patient/Caregiver Education, Self-Care/Home Management,Soft Tissue Mobilization,Taping, Therapeutic Activities, Therapeutic Exercises Modalities Cold Pack/Ice Massage,Hot Packs Next Visit Focus/Plan Next Note Type Treatment Note Next Visit Plan cont to work cranially to improve pt symptoms
--- NOTE | 2021-12-16 18:30 | PT.OPPOC ---
Physical, Occupational & Speech Therapy At [facility] Current Diagnoses Otalgia, unspecified ear (12/16/21) Unspecified temporomandibular joint disorder, unspecified side (12/16/21) Abnormal posture (12/16/21) Visit Care Team Role Provider Type Tacho Bartholomew MD Family Provider Physician Primary Care Provider Specialty: Family Practice Address: [address] [place] [address], [id number] Email: [email or web address] David Echevarria MD Attending Provider Physician Referring Provider Specialty: Ear, Nose, Throat Address: [address] [place] [address], [id number] Email: [email or web address] Plan Of Care PT-OP-T Assessment and Plan Start: 10/26/21 17:45 Freq: Status: Active Protocol: Document 12/16/21 13:18 [facility] (Rec: 12/16/21 18:30 [facility] [id number]) Physical Therapy Assessment Goals ear pain Short Term Goal (STG) pt will report a further 50% reduction in muffling, pain, and clogged symptoms in L ear. 11/26/21: not consistant, progressing: no muffling or L ear pain post ed for mandible alignment to R neutral during supine/ seated/ stand exercises. 11/30-was down 50% until 1.5 weeks ago when had flare up 12/16 pt reports at least 10% now STG Duration 01/15/22 Custodial Services Manager Goal (LTG) Pt will improve to having no more L ear pain, muffling, or clogged feeling. 12/16: Shocking jab has improved considerably, muffling and clogged slightly improved LTG Duration 02/15 jaw opening Halfway Goal (LTG) Pt will be able to open/close jaw w/o inc ear pain. LTG Duration achieved 11/30 Assessment Summary Assessment Pt is making progress with therapy, but did have a regression a few weeks ago where symptoms got much worse, but he has recently improved again. He is no longer having pain in ear w/jaw movement and feels better right after his sessions. He does note overall improvement with less of the sharp pain at this time. His dental procedure has been pushed back d/t cardio issues which also may be affecting his progress at this time w/ PT. Plan to cont PT to further dec pt's symptoms. Physical Therapy Plan Frequency and Duration Frequency of Treatment 1-2x/week Duration of Treatment 2 months Plan of Care Start Date 12/16/21 Plan of Care End Date 02/15/22 Therapeutic Interventions Therapeutic Interventions Home Exercise Program,Joint Mobilizations,Manual Therapy, Neuromuscular Re-education, Patient/Caregiver Education, Self-Care/Home Management,Soft Tissue Mobilization,Taping, Therapeutic Activities, Therapeutic Exercises Modalities Cold Pack/Ice Massage,Hot Packs Next Visit Focus/Plan Next Note Type Treatment Note Next Visit Plan cont to work cranially to improve pt symptoms Plan of Care Dates Plan of Care Start Date 12/16/21 Plan of Care End Date 02/15/22 Electronically Signed by: Shahnaz Echevarria, PT 12/16/21 3115 Please Sign and Return: I have reviewed this Plan of Care and certify that the skilled therapy services above are required to meet the patient?s needs. Physician Signature Date Printed Name and Credentials Clinical Instructor Signature Printed Name and Credentials
--- NOTE | 2022-01-20 16:59 | PT.OPDS ---
Current Diagnoses Otalgia, unspecified ear (12/16/21) Unspecified temporomandibular joint disorder, unspecified side (12/16/21) Abnormal posture (12/16/21) Visit Care Team Role Provider Type Tacho Bartholomew MD Family Provider Physician Primary Care Provider Specialty: Family Practice Address: [address] [place], [address] Email: [email or web address] David Echevarria MD Attending Provider Physician Referring Provider Specialty: Ear, Nose, Throat Address: [address] [place] [address], [id number] Email: [email or web address] Visit Number Visit Number 12 Discharge Summary PT-OP-B Current Condition Start: 10/26/21 17:45 Freq: Status: Active Protocol: Document 10/27/21 10:34 [facility] (Rec: 10/27/21 13:09 [facility] [id number]) Current Condition History of Current Condition Onset Date over 1 year Current Complaints L ear History of Current Condition Pt reports L ear pain that he went to the MD for and was referred to Dr. Echevarria. He was given 2 hearing tests and multiple exams and he couldn't find anything wrong. He went to the dentist and had a tooth pulled and it improved it about 50% less than 2 months ago. Pt reports there is a tooth on the R side that will need a crown replaced and a partial cap came off one on L side and there is another that they may have to pull (he is unsure why). Pt is unsure how they will decide it will need to be pulled.He feels like it is plugged up like when [place] the [place] all the time jnow and sometimes can relieve it by pushign on ear. Pt hurts and echos when he talks but not as much of a problem when others talks. Pt reprots he has a history of neck and back problems all the way to his tailbone. It has been tolerable. He sees a chiro regularly and that helps to manage his back and neck pain and has had shots in the past to help manage that. Chiro has tried one adjustment to jaw region and that did not help w/the pain. Pt reports the L ear pain is with him for about 2/3 of the day. It does not give him trouble at night and it is gone before he goes to bed. Comes on shortly after he gets up. He doesn't notice it in the middle of the night when he gets up to go to the bathroom. He has had a recent hearing test and L>R has nominally worse hearing. Last week he fell d/t turning and reaching backwards, and landed face down onto his chainsaw and he heard pops. It hurts to take a deep breath or sneeze. Pt reports he gets dizziness occasionally unsure what brings it on. Has not passed out. Reports he has been doing exercises recenty including sit<>stands. Pt reports he has goten AUGUSTE lately over the last 2-3 months not daily but occasional. AUGUSTE at temporal region. He thinks the AUGUSTE may occur when the ear is worse. AUGUSTE when he gets them get ot be about 7-8/10. Someone talking loud can cause sharp pain into the ear. Treatment Goals Patient/Caregiver Goals get rid of ear pain. PT-OP-C Subjective Start: 10/26/21 17:45 Freq: Status: Active Protocol: Document 12/16/21 13:18 [facility] (Rec: 12/16/21 18:30 [facility] [id number]) OP-PT Subjective Patient Comments Patient Comments Pt reports when he had his ECHO they sent him to [facility] and he was sent to [facility]. He has severe Aortic stenosis and plan to get him into surgery by the end of the month. He hasn't had as much sharp pain recently PT-OP-F Manual Assessment Start: 10/26/21 17:45 Freq: Status: Active Protocol: Document 10/27/21 10:34 [facility] (Rec: 10/27/21 13:09 [facility] [id number]) Manual Assessments Soft Tissue Assessment Soft Tissue Mobility Assessment tightness and tenderness to L> R temporalis, masseter, digastric, L post and inf jaw, SCM Joint Mobility Assessment Joint Mobility Assessment jaw protrudes fwd in socket w/ opening L>R and roel post w/ R w/closing PT-OP-J Posture/Palpation/Skin Start: 10/26/21 17:45 Freq: Status: Active Protocol: Document 10/27/21 10:34 [facility] (Rec: 10/27/21 13:09 [facility] [id number]) Posture Evaluation Comments Posture Comments fwd rounded shoulders & fwd neck, jaw deviated slightly L PT-OP-K Range of Motion Start: 10/26/21 17:45 Freq: Status: Active Protocol: Document 10/27/21 10:34 [facility] (Rec: 10/27/21 13:09 [facility] [id number]) Cervical Spine Range of Motion Cervical Spine Active Degrees Flexion 34 Extension 33 Rotation Left 51 Rotation Right 46 Lateral Flexion Left 17 Lateral Flexion Right 20 Comments no change w/ear plug feeling TMJ Range of Motion Jaw Openning Jaw Openning (mm) 40 Comments Comments jaw deviation sliglty greater to R but no pain; noted pain after 3x jaw opening w/closing jaw PT-OP-L Special Tests Start: 10/26/21 17:45 Freq: Status: Active Protocol: Document 10/27/21 10:34 [facility] (Rec: 10/27/21 13:09 [facility] [id number]) Special Tests Cervical Spine Special Tests Spurling's Test Test Results neg Alar Ligament Test Results neg PT-OP-T Assessment and Plan Start: 10/26/21 17:45 Freq: Status: Active Protocol: Document 01/20/22 16:58 [facility] (Rec: 01/20/22 16:59 [facility] [id number]) Physical Therapy Assessment Assessment Summary Assessment Pt called to cancel appointments d/t having heart surgery, and has many other appointments. At this time d/t change in medical status. Pt had made slow progress towards goals prior to dc. Physical Therapy Plan Discharge Physical Therapy Discharge Reasons Change in Medical Status
== END 2022-01-21 09:24 ==
LOC: PHYS 14:30
PROVIDERS: Family Provider Family Medicine; PCP Family Medicine; Referring Provider Otolaryngology; Visit Provider Otolaryngology
DX: M26.609 Unspecified temporomandibular joint disorder, unspecified side (principal); H92.09 Otalgia, unspecified ear; R29.3 Abnormal posture
CPT/HCPCS: 97110; 97140; 97161; 97535

== ENCOUNTER 2022-05-05 10:15 | Outpatient (RCR) | payer MEDICARE, OTHER, SELFPAY ==
[2021-03-16 19:41] VITALS: BMI 26.0
== END 2022-05-05 14:15 ==
LOC: CAR 10:15
PROVIDERS: Family Provider Family Medicine; PCP Family Medicine; Referring Provider Family Medicine; Visit Provider Family Medicine
DX: Z95.2 Presence of prosthetic heart valve (principal)
CPT/HCPCS: 93798

== ENCOUNTER 2023-04-23 12:59 | Emergency (ER) | payer MEDICARE, OTHER, SELFPAY ==
[2023-04-23] VITALS (15 sets, daily range): BP systolic 134–194; BP diastolic 64–78; PULSE 59–61; RESP 15–23; TEMP 36.3; O2SAT 96–99; BMI 26.0; BMI 24.3
--- NOTE | 2023-04-23 13:25 | DI.CT.S_ITS ---
PROCEDURE: CT STROKE INDICATIONS: Positive BE-FAST, Stroke symptoms TECHNIQUE: Noncontrast 4.5 mm thick angled axial sections acquired from the foramen magnum to the vertex, with coronal reformats. For radiation dose reduction, the following was used: automated exposure control, adjustment of mA and/or kV according to patient size. COMPARISON: None. FINDINGS: Image quality: Excellent. CSF spaces: Basal cisterns are patent. No extra-axial fluid collections. Ventricles are normal in size and shape. Brain: No midline shift. No intracranial masses or hemorrhage. Farooq-white matter interface is normal. There is diffuse parenchymal volume loss with expansion CSF containing spaces. Few periventricular white matter hypodensities consistent chronic microvascular ischemic disease. Skull and face: Calvarium and visualized facial bones are intact, without suspicious lesions. Sinuses: Visualized sinuses and mastoids are clear. IMPRESSION: No acute intracranial hemorrhage. Sequela of chronic microvascular ischemic disease. This study fulfills neurological imaging criteria for inclusion or exclusion of acute stroke therapies based on available published neurological imaging guidelines. Dictated by: Scott Stephen M.D. on 04/23/2023 at 12:55 Approved by: Scott Stephen M.D. on 04/23/2023 at 12:56
--- NOTE | 2023-04-23 13:25 | DI.RAD.S_ITS ---
PROCEDURE: XR CHEST 1V INDICATIONS: Possible stroke TECHNIQUE: One view of the chest was acquired. COMPARISON: [facility], [place], XR CHEST 2V, 02/23/2019, 10:19. FINDINGS: Surgical changes and devices: Left chest wall cardiac device with leads in the right atrium and right ventricle. Aortic valve replacement is present. Lungs and pleura: Lungs are clear. No pleural effusions or pneumothorax. Mediastinum: Mediastinal contours appear normal. Heart size is normal. Bones and chest wall: No suspicious bony lesions. Overlying soft tissues appear unremarkable. IMPRESSION: No acute cardiopulmonary findings. Dictated by: Scott Stephen M.D. on 04/23/2023 at 13:39 Approved by: Scott Stephen M.D. on 04/23/2023 at 13:40
[2023-04-23 13:34] LABS: Add Manual Diff / Slide Review NO; Basophils Absolute Auto 0 /uL (0-100); Basophils Percent Auto 0.3 % (0-2); Eosinophils Absolute Auto 300 /uL (0-450); Eosinophils Percent Auto 4.3 % (2-4); Hematocrit 34.3 % (41-53); Hemoglobin 12.2 g/dL (13.5-17.5); Lymphocytes Absolute Auto 1300 /uL (1100-4500); Lymphocytes Percent Auto 20.8 % (25-40); Mean Corpuscular HGB Conc 35.7 % (30-36); Mean Corpuscular Hemoglobin 35.1 PG (26-34); Mean Corpuscular Volume 98.4 fL (80-100); Monocytes Absolute Auto 600 /uL (0-900); Monocytes Percent Auto 9.3 % (3-14); Neutrophils Absolute Auto 4200 /uL (1500-7000); Neutrophils Percent Auto 65.3 % (50-75); Platelet Count 205 X10^3/uL (150-400); Red Blood Cell Count 3.49 X10^6/uL (4.5-5.9); White Blood Cell Count 6.4 X10^3/uL (4.5-11.0)
[2023-04-23 13:41] LABS: Prothrombin Time 11.8 SECONDS (10.1-12.7)
[2023-04-23 13:44] LABS: PTT Partial Thromboplastin Tim 32 SECONDS (26-36)
[2023-04-23 13:45] LABS: Alanine Aminotransferase 17 IU/L (<50); Albumin 4.3 g/dL (3.5-5.0); Albumin Globulin Ratio 1.7 (1.0-2.8); Alkaline Phosphatase 39 U/L (38-126); Aspartate Aminotransferase 28 IU/L (17-59); Bilirubin Total 0.5 mg/dL (0.2-1.3); Blood Urea Nitrogen 18 mg/dL (9-20); Calcium 9.3 mg/dL (8.4-10.2); Carbon Dioxide 25 mmol/L (22-32); Chloride 99 mmol/L (98-107); Creatine Kinase 98 U/L (55-170); Estimated Glomerular Filt Rate > 60 mL/min (>60); Globulin 2.6 g/dL (1.7-4.1); Glucose 89 mg/dL (80-110); HEMOLYSIS 28 (0-50); Sodium 132 mmol/L (137-145); Total Protein 6.9 g/dL (6.3-8.2)
--- NOTE | 2023-04-23 13:49 | DI.CT.S_ITS ---
PROCEDURE: CT ANGIO HEAD AND NECK INDICATIONS: double vision resolved TECHNIQUE: After the administration of intravenous contrast, 1 mm thick sections acquired from the aortic arch through the [place] [employer]. 3-dimensional lnelwds-mpxugbohi-kllcegbtun (MIP) and/or volume rendering reformats were acquired of the central intracranial vasculature and neck separately. For radiation dose reduction, the following was used: automated exposure control, adjustment of mA and/or kV according to patient size. COMPARISON: [facility], CR, XR CHEST 1V, 04/23/2023, 13:36. FINDINGS: Image quality: Diagnostic. BRAIN: CSF spaces: Ventricles are normal in size and shape. Basal cisterns are patent. No extra-axial fluid collections. Brain: No midline shift. No intracranial bleeds or masses. [place]-white matter interface appears intact. Skull and face: Calvarium and facial bones appear intact, without suspicious lesions. Orbits appear normal. Sinuses: Sinuses and mastoids are clear. HEAD CT ANGIOGRAPHY: Anterior circulation: Intracranial internal carotid arteries are normal in size and flow. The flow within the paired anterior cerebral arteries is normal and symmetric. The flow within the middle cerebral arteries is normal and symmetric. The anterior communicating artery is seen. No aneurysms are seen. Posterior circulation: Visualized portions of the vertebral arteries demonstrate normal caliber, and join to form a normal appearing basilar artery. Flow within the posterior cerebral arteries is normal and symmetric. No aneurysms are seen. NECK CT ANGIOGRAPHY: Carotid system: The great vessels demonstrate a conventional anatomy as they arise from the aortic arch. The origins of the common carotid arteries appear patent. The common carotid arteries demonstrate normal caliber and courses. The bifurcation regions are both widely patent. The internal carotid arteries demonstrate normal calibers and courses. Posterior circulation: The origins of the vertebral arteries both appear widely patent. The more superior extracranial portions of both vertebral arteries also demonstrate normal courses and calibers. They join to form a normal appearing basilar artery. 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 Left chest wall stimulator with lead near the left apex. Bones: No suspicious bony lesions. Visualized cervical spine appears normally aligned. IMPRESSION: No intracranial hemorrhage, aneurysm, or focal stenosis identified. No hemodynamically significant stenosis the carotid or internal vertebral arteries. Soft tissue mass within the anterior mediastinum, differential includes lymphoma, thymoma, or teratoma. Any quantitative measurements of stenosis were performed using NASCET criteria. Dictated by: Scott Stephen M.D. on 04/23/2023 at 13:40 Approved by: Scott Stephen M.D. on 04/23/2023 at 13:49
[2023-04-23 13:54] LABS: NT-proBNP (BNP-Adult 18+) 2340 pg/mL (<450)
[2023-04-23 13:57] LABS: Troponin I 0.018 ng/mL (0.01-0.034)
[2023-04-23 16:26] LABS: Appearance Urine UA CLEAR; Bilirubin Urine UA NEGATIVE (NEGATIVE); Color Urine UA YELLOW; Glucose Urine UA NEGATIVE (Negative); Ketones Urine UA NEGATIVE (NEGATIVE); Leukocyte Esterase Urine UA NEGATIVE (NEGATIVE); Nitrite Urine UA NEGATIVE (Negative); Occult Blood Urine UA TRACE-INTACT (Negative); Protein Urine UA NEGATIVE (Negative); Urobilinogen Urine UA 0.2 E.U./dL (0.2)
[2023-04-23 16:30] LABS: UR Morphine/Opiate cutoff 300 Negative (Negative); Ur Creatinine Normal (Normal); Ur Specific Gravity Normal (Normal); Urine Amphetamines Negative (Negative); Urine Barbiturates Negative (Negative); Urine Benzodiazepines Negative (Negative); Urine Cocaine Negative (Negative); Urine MDMA Negative (Negative); Urine Methadone Negative (Negative); Urine Methamphetamines Negative (Negative); Urine Oxycodone Negative (Negative); Urine Phencyclidine Negative (Negative); Urine Tetrahydrocannabinol Negative (Negative); Urine Tricyclic Antidepressant Negative (Negative); Urine pH Normal (Normal)
[2023-04-23 16:37] LABS: Bacteria Urine None Seen; Culture Indicated Urine Cult Not Indicated; RBC Urine None Seen (0-5/HPF); Squamous Epithelial Cell Urine None Seen (0-5/HPF); WBC Urine None Seen (0-5/HPF)
--- NOTE | 2023-04-23 18:09 | ED_ITS ---
HPI - Neuro Symptoms/Deficit General Chief Complaint: Neuro Symptoms/Deficit Stated Complaint: sent by wic/double vision Time Seen by Provider: 04/23/23 18:02 Source: patient Mode of arrival: Ambulatory History of Present Illness HPI Narrative: 77-year-old male former smoker with history of hypertension, glaucoma, relatively recent heart catheterization presents with a chief complaint of an episode of double vision this morning lasting 30 minutes. He denies any trouble with speech or balance, no extremity numbness, tingling or weakness. Denies any chest pain or shortness of breath. He has no abdominal pain, nausea or vomiting. He denies any recent trauma or injury. He takes no blood thinners. He has no fever or chills. On Anticoagulants: No (81mg ASA) Related Data Home Medications Medication Instructions Recorded Confirmed ascorbic acid (vitamin C) 500 mg See Rx Instructions PO .COMPLEX 03/30/18 03/17/21 capsule aspirin 81 mg chewable tablet 81 mg PO DAILY 03/30/18 03/17/21 (Mariola Chewable Low Dose Aspirin) calcium citrate 200 mg (950 mg) 600 mg PO BID 03/30/18 03/17/21 tablet mecobalamin (vitamin B12) 1,000 1,000 mcg sublingual DAILY 03/30/18 03/17/21 mcg disintegrating tablet,sublingual niacin 50 mg tablet 100 mg PO BID 03/30/18 03/17/21 omega-3 fatty acids 500 mg capsule 500 mg PO DAILY 03/30/18 03/17/21 simvastatin 40 mg tablet 40 mg PO QPM 03/30/18 03/17/21 timolol 0.5 % eye drops 1 drop ophthalmic (eye) BID 03/30/18 03/17/21 Previous Rx's Medication Instructions Recorded gabapentin 300 mg capsule See Rx Instructions .Route 07/17/20 .COMPLEX #180 caps Allergies Allergy/AdvReac Type Severity Reaction Status Date / Time No Known Drug Allergies Allergy Verified 04/23/23 13:27 Review of Systems Review of Systems Narrative: GENERAL: Denies chills, fatigue, malaise, fever, sweats. HEENT: See HPI. RESPIRATORY: Denies dyspnea, cough, wheezing, hemoptysis, sputum. CARDIOVASCULAR: Denies chest pain, palpitations, orthopnea, edema, GASTROINTESTINAL: Denies nausea, vomiting, abdominal pain, diarrhea, consti pation, melena. : Denies dysuria, frequency, incontinence, hematuria, urinary retention. MUSCULOSKELETAL: denies weakness, joint pain, or bony pain SKIN: Denies rash, skin lesions, or other NEUROLOGIC: D see HPI PSYCHIATRIC: No concerning psychosocial issues. 12 point review of systems is negative except for those stated above Hematologic/Lymphatic On Anticoagulants: No (81mg ASA) Patient History Medical History Arthritis Cervical spondylosis Closed L3 vertebral fracture Gait instability Pars defect with spondylolisthesis Scoliosis of cervical region due to degenerative disease of spine in adult Weakness Family History Mother Cancer Father Cancer Social History marital status: household members: spouse lives independently: Yes Smoking Status: Former smoker Smokeless tobacco user: other quit status: quit date established second hand exposure: No alcohol intake: former substance use type: does not use Smoking Status: Former smoker alcohol intake frequency: holidays/special occasions only Substance Use Type: does not use Exam Narrative Exam Narrative: GENERAL: [77] year old patient appears stated age. Well-developed patient, in mild distress. HEAD: Atraumatic. Normocephalic. EYES: Pupils equal round and reactive. Extraocular motions intact. No scleral icterus. No injection or drainage. ENT: Nose without bleeding, purulent drainage. Throat without erythema, tonsi llar hypertrophy or exudate. Airway patent. NECK: Trachea midline. Non tender CARDIOVASCULAR: Regular rate and rhythm without murmurs, gallops, or rubs. RESPIRATORY: Clear to auscultation. Breath sounds equal bilaterally. No wheezes, rales, or rhonchi. GASTROINTESTINAL: Abdomen soft, non-tender, nondistended. EXTREMITIES: No edema or joint tenderness. BACK: Nontender without deformity or crepitance. No flank tenderness. NEURO: AOx3. SKIN: No rash or erythema of visible areas NIH Stroke Scale 1a. LOC: Patient is alert and keenly responsive (0) 1b. LOC Questions: Patient answers both LOC questions accurately (0) 1c. LOC Commands: Patient performs both tasks correctly (0) 2. Best Gaze: Normal (0) 3. Visual: No visual loss (0) 4. Facial palsy: Normal symmetrical movements (0) 5. Motor arm: No drift (0) 6. Motor leg: No drift (0) 7. Limb ataxia: Absent (0) 8. Sensory: Normal (0) 9. Best language: No aphasia; normal (0) 10. Dysarthria: Normal (0) 11. Extinction and inattention: No abnormality (0) NIHSS: 0 Initial Vital Signs Initial Vital Signs: Vital Signs Temperature 97.4 F L 04/23/23 13:27 Pulse Rate 60 04/23/23 13:27 Respiratory Rate 20 04/23/23 13:27 Blood Pressure 134/64 04/23/23 13:27 Pulse Oximetry 99 04/23/23 13:27 Oxygen Delivery Method Room Air 04/23/23 13:27 Scores ABCD2 Age >= 60 years: yes Initial BP. Either SBP >= 140 or DBP >= 90.: yes Clinical features of the TIA: other symptoms Duration of symptoms: 10-59 minutes History of diabetes: no ABCD2 Score: 3 Course Orders Ordered: Discontinued Medications Ondansetron HCl (Ondansetron 4 Mg/2 Ml Inj) 4 mg IV NOW PRN PRN Reason: Nausea And Vomiting Ondansetron HCl (Ondansetron 4 Mg Odt) 4 mg SL NOW PRN PRN Reason: Nausea And Vomiting Vital Signs Vital signs: Vital Signs - 8 hr 04/23/23 13:27 04/23/23 15:48 04/23/23 15:49 Temperature 97.4 F L Pulse Rate 60 Respiratory Rate 20 16 Blood Pressure 134/64 137/66 Pulse Oximetry 99 99 Oxygen Delivery Method Room Air Room Air 04/23/23 15:49 04/23/23 16:12 04/23/23 16:14 Temperature Pulse Rate 60 61 Respiratory Rate Blood Pressure 183/77 H Pulse Oximetry 98 98 Oxygen Delivery Method 04/23/23 16:14 04/23/23 16:30 04/23/23 18:06 Temperature Pulse Rate 60 60 60 Respiratory Rate 15 19 23 Blood Pressure Pulse Oximetry 99 98 Oxygen Delivery Method Room Air 04/23/23 18:08 04/23/23 18:08 Temperature Pulse Rate 60 Respiratory Rate 20 Blood Pressure 194/78 H Pulse Oximetry 98 Oxygen Delivery Method MDM - Neuro Symptoms/Deficit Lab Data 04/23/23 13:24 04/23/23 13:24 Labs: Lab Results 04/23/23 04/23/23 04/23/23 Range/Units 13:24 13:24 13:24 WBC 6.4 (4.5-11.0) X10^3/uL RBC 3.49 L (4.5-5.9) X10^6/uL Hgb 12.2 L (13.5-17.5) g/dL Hct 34.3 L (41-53) % MCV 98.4 (80-100) fL MCH 35.1 H (26-34) PG MCHC 35.7 (30-36) % RDW 12.0 (11.6-14.8) % Plt Count 205 (150-400) X10^3/uL Neut % (Auto) 65.3 (50-75) % Lymph % (Auto) 20.8 L (25-40) % [place]ountain % (Auto) 9.3 (3-14) % Eos % (Auto) 4.3 H (2-4) % Baso % (Auto) 0.3 (0-2) % Neut # (Auto) 4200 (1477-2496) /uL Lymph # (Auto) 1300 (0160-6303) /uL [place]ountain # (Auto) 600 (0-900) /uL Eos # (Auto) 300 (0-450) /uL Baso # (Auto) 0 (0-100) /uL PT 11.8 (10.1-12.7) SECONDS INR 1.0 (0.9-1.3) APTT 32 (26-36) SECONDS Sodium 132 L (137-145) mmol/L Potassium 4.0 (3.4-5.1) mmol/L Chloride 99 (98-107) mmol/L Carbon Dioxide 25 (22-32) mmol/L BUN 18 (9-20) mg/dL Creatinine 0.75 (0.66-1.25) mg/dL Estimated GFR > 60 (>60) mL/min BUN/Creatinine Ratio 24.0 H (6-22) Glucose 89 (80-110) mg/dL Calcium 9.3 (8.4-10.2) mg/dL Magnesium 2.0 (1.6-2.3) mg/dL Total Bilirubin 0.5 (0.2-1.3) mg/dL AST 28 (17-59) IU/L ALT 17 (<50) IU/L Alkaline Phosphatase 39 (38-126) U/L Total Creatine Kinase 98 (55-170) U/L Troponin I 0.018 (0.01-0.034) ng/mL NT-Pro-B Natriuret Pep (<450) pg/mL Total Protein 6.9 (6.3-8.2) g/dL Albumin 4.3 (3.5-5.0) g/dL Globulin 2.6 (1.7-4.1) g/dL Albumin/Globulin Ratio 1.7 (1.0-2.8) Urine Color Urine Appearance Urine pH (4.5-8.0) Ur Specific [place] (1.000-1.035) Urine Protein (Negative) Urine Glucose (UA) (Negative) g/dL Urine Ketones (NEGATIVE) Urine Occult Blood (Negative) Urine Nitrate (Negative) Urine Bilirubin (NEGATIVE) Urine Urobilinogen (0.2) E.U./dL Ur Leukocyte Esterase (NEGATIVE) Urine RBC (0-5/HPF) Urine WBC (0-5/HPF) Ur Squamous Epith Cells (0-5/HPF) Urine Bacteria (None) Ur Culture Indicated? U Opiates 300ng/mL cut (Negative) Ur Oxycodone Screen (Negative) Urine Methadone Screen (Negative) Ur Barbiturates Screen (Negative) U Tricyclic Antidepress (Negative) Ur Phencyclidine Scrn (Negative) Ur Amphetamines Screen (Negative) U Methamphetamines Scrn (Negative) Ur MDMA Scrn (Ecstasy) (Negative) U Benzodiazepines Scrn (Negative) Urine Cocaine Screen (Negative) U Marijuana (THC) Screen (Negative) 04/23/23 04/23/23 04/23/23 Range/Units 13:24 16:07 16:07 WBC (4.5-11.0) X10^3/uL RBC (4.5-5.9) X10^6/uL Hgb (13.5-17.5) g/dL Hct (41-53) % MCV (80-100) fL MCH (26-34) PG MCHC (30-36) % RDW (11.6-14.8) % Plt Count (150-400) X10^3/uL Neut % (Auto) (50-75) % Lymph % (Auto) (25-40) % Fountain % (Auto) (3-14) % Eos % (Auto) (2-4) % Baso % (Auto) (0-2) % Neut # (Auto) (9018-1058) /uL Lymph # (Auto) (2140-1990) /uL Fountain # (Auto) (0-900) /uL Eos # (Auto) (0-450) /uL Baso # (Auto) (0-100) /uL PT (10.1-12.7) SECONDS INR (0.9-1.3) APTT (26-36) SECONDS Sodium (137-145) mmol/L Potassium (3.4-5.1) mmol/L Chloride (98-107) mmol/L Carbon Dioxide (22-32) mmol/L BUN (9-20) mg/dL Creatinine (0.66-1.25) mg/dL Estimated GFR (>60) mL/min BUN/Creatinine Ratio (6-22) Glucose (80-110) mg/dL Calcium (8.4-10.2) mg/dL Magnesium (1.6-2.3) mg/dL Total Bilirubin (0.2-1.3) mg/dL AST (17-59) IU/L ALT (<50) IU/L Alkaline Phosphatase (38-126) U/L Total Creatine Kinase (55-170) U/L Troponin I (0.01-0.034) ng/mL NT-Pro-B Natriuret Pep 2340 H (<450) pg/mL Total Protein (6.3-8.2) g/dL Albumin (3.5-5.0) g/dL Globulin (1.7-4.1) g/dL Albumin/Globulin Ratio (1.0-2.8) Urine Color Yellow Urine Appearance Clear Urine pH 5.0 (4.5-8.0) Ur Specific Tinnie 1.010 (1.000-1.035) Urine Protein Negative (Negative) Urine Glucose (UA) Negative (Negative) g/dL Urine Ketones Negative (NEGATIVE) Urine Occult Blood Trace-intact (Negative) Urine Nitrate Negative (Negative) Urine Bilirubin Negative (NEGATIVE) Urine Urobilinogen 0.2 (0.2) E.U./dL Ur Leukocyte Esterase Negative (NEGATIVE) Urine RBC None seen (0-5/HPF) Urine WBC None seen (0-5/HPF) Ur Squamous Epith Cells None seen (0-5/HPF) Urine Bacteria None seen (None) Ur Culture Indicated? Cult not indicated U Opiates 300ng/mL cut Negative (Negative) Ur Oxycodone Screen Negative (Negative) Urine Methadone Screen Negative (Negative) Ur Barbiturates Screen Negative (Negative) U Tricyclic Antidepress Negative (Negative) Ur Phencyclidine Scrn Negative (Negative) Ur Amphetamines Screen Negative (Negative) U Methamphetamines Scrn Negative (Negative) Ur MDMA Scrn (Ecstasy) Negative (Negative) U Benzodiazepines Scrn Negative (Negative) Urine Cocaine Screen Negative (Negative) U Marijuana (THC) Screen Negative (Negative) Point of Care Testing Glucose POC 89 MDM Narrative Medical decision making narrative: CC: 77-year-old male with episode of blurred vision, since resolved and absence of other neurologic symptoms Complicating co-morbidities: Age, hypertension, hyperlipidemia Data collected from: Patient Medical records reviewed: Prior notes reviewed in our EMR Differential considered, but not limited to: Ocular problem versus TIA versus other Exam documented above, pertinent findings include: No ongoing visual problems, NIH stroke scale 0, heart rate regular, lungs clear Lab Test results independently reviewed as above. Pertinent findings: No significant abnormalities Independently reviewed EKG as above Imaging studies independently reviewed: CT of the head as well as CTA of head and neck absence of acute findings Scores Used:NIHSS Consultations: Discussed with patient's PCP, Dr. Bartholomew. We share the opinion that admission is not indicated. Patient just had echo a few weeks ago and is not a candidate for MRI given pacemaker. Symptoms resolved and were brief. Will increase ASA to 325 and follow closely Discussion: Patient with brief episode of double vision long since resolved in the absence of other symptoms. No acute findings on current exam, labs or imaging. Possibly TIA, however low risk, and not candidate for any intervention. Discussed with PCP and no indication for admission given recent echo unable to perform MRI, will increase aspirin, follow closely. Disposition: see below, along with detailed discharge instructions that have been reviewed with patient as well as indications for ED re-evaluation and additional outpatient follow up Discharge Plan Departure Patient Disposition: Home Clinical Impression: Vision disturbance Instructions: DI for Double Vision Activity Restrictions/Additional Instructions: *You have been diagnosed with [brief episode of vision disturbance which thankfully has resolved. Your history and physical exam are reassuring, there are no abnormal labs to pursue and CT scan of your head and neck are reassuring and there is no evidence of stroke] *What to do: *Pleases INCREASE ASPIRIN from 81mg daily to 325mg daily. Otherwise, please continue to take your regular medications as directed. [ ] New medication prescriptions sent to your pharmacy: [ ] [ ] New medication written as a paper prescription [ ] No new medications given *Please follow up with your primary care provider in 2-3 days, call for an appointment. Let them know you were seen in the Emergency Department and that we ask that you be seen in follow up. We will electronically transmit a record of today's note if your PCP is in our system *Return to Emergency Department if you should have any new, worsening or concerning symptoms, such as [fever greater than 101 F, shaking chills, wors ening pain, persistent vomiting or other bothersome symptoms] Prescriptions: No Action gabapentin 300 mg capsule See Rx Instructions .ROUTE .COMPLEX Qty: 180 3RF Dose Instruction: TAKE 1 CAPSULE BY MOUTH TWICE DAILY Rx Instructions: TAKE 1 CAPSULE BY MOUTH TWICE DAILY niacin 50 mg tablet 100 mg PO BID simvastatin 40 mg tablet 40 mg PO QPM timolol 0.5 % drops 1 drop ophthalmic (eye) BID aspirin [Mariola Chewable Aspirin] 81 mg tablet,chewable 81 mg PO DAILY calcium citrate 200 mg (950 mg) tablet 600 mg PO BID omega-3 fatty acids 500 mg capsule 500 mg PO DAILY mecobalamin (vitamin B12) 1,000 mcg tablet,disintegrating 1,000 mcg SL DAILY ascorbic acid (vitamin C) 500 mg capsule See Rx Instructions PO .COMPLEX Patient Comments: 1000 UNITS PO ; Rx Instructions: 1000 UNITS PO ; Referrals: Tacho Bartholomew MD [Primary Care Provider] - Stand Alone Forms: Patient Portal/API
--- NOTE | 2023-04-23 18:12 | PC.NURSE ---
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
== END 2023-04-23 20:10 | disposition home or self-care (01) ==
PROVIDERS: Emergency Medicine; Emergency Provider Emergency Medicine; Family Provider Family Medicine; PCP Family Medicine
DX: H53.9 Unspecified visual disturbance (principal); R29.818 Other symptoms and signs involving the nervous system
CPT/HCPCS: 36415; 70450; 70496; 70498; 71045; 80053; 80305; 81001; 82550; 82962; 83735; 83880; 84484; 85025; 85610; 85730; 93005; 99284; 99285; Q9967

== ENCOUNTER → 2023-06-01 14:33 | Outpatient (CLI) | payer MEDICARE, OTHER, SELFPAY ==
[2023-04-23 12:59] VITALS: BMI 26.0
--- NOTE | 2023-06-01 | DI.CT.S_ITS ---
PROCEDURE: CT ANGIO HEAD AND NECK INDICATIONS: DOUBLE VISION W/BOTH EYES OPEN TECHNIQUE: After the administration of intravenous contrast, 1 mm thick sections acquired from the aortic arch through the [place] [employer]. 3-dimensional qmclrnx-bvwlnkqtm-gyqtnhjljf (MIP) and/or volume rendering reformats were acquired of the central intracranial vasculature and neck separately. For radiation dose reduction, the following was used: automated exposure control, adjustment of mA and/or kV according to patient size. COMPARISON: [facility], CT, CT ANGIO HEAD AND NECK, 04/23/2023, 14:09. FINDINGS: Image quality: Diagnostic. BRAIN: See separately dictated CT of the head HEAD CT ANGIOGRAPHY: Anterior circulation: Intracranial internal carotid arteries are normal in size and flow. Atherosclerotic vascular calcifications are present. Or The flow within the paired anterior cerebral arteries is normal and symmetric. The flow within the middle cerebral arteries is normal and symmetric. The anterior communicating artery is seen. No aneurysms are seen. Posterior circulation: Visualized portions of the vertebral arteries demonstrate normal caliber, and join to form a normal appearing basilar artery. Flow within the posterior cerebral arteries is normal and symmetric. No aneurysms are seen. NECK CT ANGIOGRAPHY: Carotid system: The great vessels demonstrate a conventional anatomy as they arise from the aortic arch. Diffuse atherosclerotic vascular calcifications. The origins of the common carotid arteries appear patent. The common carotid arteries demonstrate normal caliber and courses. The bifurcation regions are both widely patent. The internal carotid arteries demonstrate normal calibers and courses. Posterior circulation: Diffuse atherosclerotic vascular calcifications. The origins of the vertebral arteries both appear widely patent. The more superior extracranial portions of both vertebral arteries also demonstrate normal courses and calibers. They join to form a normal appearing basilar artery. Soft tissues: Redemonstration of soft tissue mass within the anterior mediastinum measuring 3.1 x 2.5 cm. Bones: No suspicious bony lesions. Visualized cervical spine appears normally aligned. Degenerative changes of the spine with decreased osseous mineralization. IMPRESSION: Diffuse atherosclerotic vascular calcifications. The arteries of the head and neck are patent without hemodynamically significant stenosis, large vessel occlusion, aneurysm or AVM. Redemonstration of soft tissue mass within the anterior mediastinum, differential remains the same including lymphoma, thymoma or teratoma. Any quantitative measurements of stenosis were performed using NASCET criteria. Dictated by: Vaibhav Talbot M.D. on 06/01/2023 at 16:49 Approved by: Vaibhav Talbot M.D. on 06/01/2023 at 16:54
--- NOTE | 2023-06-01 | DI.CT.S_ITS ---
PROCEDURE: CT HEAD/BRAIN WO CON INDICATIONS: DOUBLE VISION W/BOTH EYES OPEN TECHNIQUE: Noncontrast 4.5 mm thick angled axial sections acquired from the foramen magnum to the vertex, with coronal and sagittal reformats. For radiation dose reduction, the following was used: automated exposure control, adjustment of mA and/or kV according to patient size. COMPARISON: None. FINDINGS: Image quality: Excellent. CSF spaces: Basal cisterns are patent. No extra-axial fluid collections. The ventricles are symmetric in size and shape. Brain: No intracranial bleeds or masses. There is cerebral volume loss for age, with resultant ventricular and sulcal prominence. There are periventricular and deep white matter chronic small vessel ischemic changes. There is intracranial internal carotid artery atherosclerosis. Skull and face: Calvarium and visualized facial bones appear intact, without suspicious lesions. Sinuses: Near complete opacification the maxillary sinus. Ethmoid air cell mucosal thickening. The mastoids are clear. IMPRESSION: No acute intracranial abnormalities. Dictated by: Vaibhav Talbot M.D. on 06/01/2023 at 16:48 Approved by: Vaibhav Talbot M.D. on 06/01/2023 at 16:49
== END ==
PROVIDERS: Family Provider Family Medicine; PCP Family Medicine; Referring Provider Family Medicine; Visit Provider Family Medicine
DX: H53.2 Diplopia (principal); M79.89 Other specified soft tissue disorders; I70.90 Unspecified atherosclerosis; R53.83 Other fatigue; Z95.2 Presence of prosthetic heart valve; Z95.0 Presence of cardiac pacemaker
CPT/HCPCS: 70450; 70496; 70498; Q9967

== ENCOUNTER 2024-11-09 10:09 | Inpatient (IN) | payer MEDICARE, OTHER, SELFPAY ==
[2023-04-23 12:59] VITALS: BMI 26.0
[2024-11-09] VITALS (27 sets, daily range): BP systolic 125–186; BP diastolic 60–117; PULSE 69–79; RESP 16–36; TEMP 36.6–38.6; O2SAT 93–98; BMI 21.4; BMI 23.4
--- NOTE | 2024-11-09 10:45 | ED.URI ---
HPI - URI/Sore Throat General Chief Complaint: Upper Respiratory Symptoms Stated Complaint: cough/chills/back & leg pain Time Seen by Provider: 11/09/24 10:11 Mode of arrival: Wheelchair History of Present Illness HPI Narrative: 79-year-old male reports history of remote smoking, not usually on oxygen, history of Eliquis chronic anticoagulation, history of prior TAVR procedure, history of prior cardiac pacemaker, lives alone, has chronic cough usually dry, now with productive cough for the last couple of days with increasing shortness of breath, feels feverish, back discomfort worse with coughing. Has generalized weakness. No recent falls. No focal weakness to face arm or leg. No focal numbness to face arm or leg. Related Data Home Medications Medication Instructions Recorded Confirmed ascorbic acid (vitamin C) 500 mg See Rx Instructions PO .COMPLEX 03/30/18 11/09/24 capsule aspirin 81 mg chewable tablet 81 mg PO DAILY 03/30/18 11/09/24 ([place] Chewable Low Dose Aspirin) apixaban 5 mg tablet (Eliquis) 5 mg PO BID 11/09/24 11/09/24 Allergies Allergy/AdvReac Type Severity Reaction Status Date / Time No Known Drug Allergies Allergy Verified 11/09/24 10:15 Patient History Medical History Scoliosis of cervical region due to degenerative disease of spine in adult Closed L3 vertebral fracture Pars defect with spondylolisthesis Cervical spondylosis Weakness Gait instability Arthritis Family History Mother Cancer Father Cancer Social History marital status: household members: spouse lives independently: Yes Smoking Status: Former smoker Smokeless tobacco user: other quit status: quit date established second hand exposure: No alcohol intake: former substance use type: does not use Smoking Status: Former smoker alcohol intake frequency: holidays/special occasions only Exam Narrative Exam Narrative: GENERAL: Well-developed patient, in mild distress. HEAD: Atraumatic. Normocephalic. EYES: Pupils equal round and reactive. Extraocular motions intact. No scleral icterus. No injection or drainage. ENT: Nose without bleeding, purulent drainage. Throat without erythema, tonsillar hypertrophy or exudate. Airway patent. Wearing nasal cannula oxygen, not usually on oxygen. NECK: Trachea midline. Non tender. CARDIOVASCULAR: Regular rate and rhythm without murmurs, gallops, or rubs. RESPIRATORY: Clear to auscultation. Breath sounds equal bilaterally. Crackles bibasilar. No obvious wheeze. Speaking in full sentences. GASTROINTESTINAL: Abdomen soft, non-tender, nondistended. EXTREMITIES: No edema or joint tenderness. BACK: Nontender without deformity or crepitance. No flank tenderness. NEURO: AOx3. Motor functions grossly nonfocal SKIN: No rash or erythema of visible areas Initial Vital Signs Initial Vital Signs: Vital Signs Temperature 97.8 F 11/09/24 10:16 Pulse Rate 71 11/09/24 10:16 Respiratory Rate 16 11/09/24 10:16 Blood Pressure 159/92 H 11/09/24 10:16 Pulse Oximetry 97 11/09/24 10:16 Oxygen Delivery Method Room Air 11/09/24 10:16 Course Orders Ordered: ED Orders 11/09/24 10:35 Complete Blood Count AUTO DIFF Stat Comprehensive Metabolic Panel Stat Covid-19 + FLU A/B + RSV - PCR Stat Lactate (Lactic Acid) Stat Lipase Stat PTT Partial Thromboplastin Saravanan Stat Procalcitonin Stat Prothrombin Time INR Stat 11/09/24 10:45 Ictotest Urine Stat Urinalysis and Microscopic Stat 11/09/24 10:48 XR chest 2V Stat EKG-12 Lead Stat RT Consult Eval and Treat NOW 11/09/24 11:10 Blood Culture Stat Acetaminophen (Acetaminophen 325 Mg Tablet) 650 mg PO Q6H PRN PRN Reason: Fever/Mild Pain (1-3) Hydrocodone Bitart/Acetaminophen (Hydrocodone/Acet 5/325 Tablet) 1 tab PO Q4H PRN PRN Reason: Pain, Moderate (4-6) Apixaban (Apixaban 5 Mg Tablet) 5 mg PO BID NAHUM Ascorbic Acid (Ascorbic Acid 500 Mg Tablet) 1,000 mg PO DAILY NAHUM Aspirin (Aspirin 81 Mg Chew Tab) 81 mg PO DAILY NAHUM Calcium Carbonate (Calcium Carbonate 500 Mg Tab) 1,000 mg PO Q4HR PRN PRN Reason: Dyspepsia Docusate Sodium (Docusate 100 Mg Capsule) 100 mg PO BID NAHUM Guaifenesin (Guaifenesin Solution 100 Mg/5 Ml Udc) 100 mg PO Q4HR PRN PRN Reason: Cough Last Admin: 11/09/24 17:38 Dose: 100 mg Documented By: KARMA Ceftriaxone Sodium 1,000 mg/ (Sodium Chloride) 100 mls @ 200 mls/hr IV Q24H NAHUM Magnesium Hydroxide (Magnesium Hydroxide 30 Ml Udc) 30 ml PO DAILY PRN PRN Reason: Constipation Naloxone HCl (Naloxone 0.4 Mg/Ml Vial) 0.2 mg IV Q2MIN PRN PRN Reason: Opiate Reversal Ondansetron HCl (Ondansetron 4 Mg/2 Ml Inj) 4 mg IV NOW PRN PRN Reason: Nausea And Vomiting Ondansetron HCl (Ondansetron 4 Mg Odt) 4 mg SL NOW PRN PRN Reason: Nausea And Vomiting Sodium Chloride (Sodium Chloride 0.9% Flush) 10 ml IV PRN PRN PRN Reason: Flush Sodium Chloride (Sodium Chloride 0.9% Flush) 10 ml IV BID NAHUM Discontinued Medications Acetaminophen (Acetaminophen 325 Mg Tablet) 650 mg PO NOW ONE Stop: 11/09/24 11:43 Last Admin: 11/09/24 11:54 Dose: 650 mg Documented By: KATHERINE Azithromycin (Azithromycin 250 Mg Tablet) 500 mg PO NOW ONE Stop: 11/09/24 13:04 Last Admin: 11/09/24 13:13 Dose: 500 mg Documented By: KATHERINE Sodium Chloride (Normal Saline 0.9%) 1,000 mls @ 1,000 mls/hr IV BOLUS ONE Stop: 11/09/24 11:47 Last Infusion: 11/09/24 12:09 Dose: Infused Documented By: Admin: 11/09/24 10:57 Dose: 1,000 mls/hr Documented By: MY Sodium Chloride (Normal Saline 0.9%) 1,000 mls @ 1,000 mls/hr IV BOLUS ONE Stop: 11/09/24 12:18 Last Infusion: 11/09/24 13:18 Dose: Infused Documented By: Infusion: 11/09/24 13:16 Dose: 0 mls/hr Documented By: Admin: 11/09/24 12:34 Dose: 1,000 mls/hr Documented By: KATHERINE Ceftriaxone Sodium 1,000 mg/ (Sodium Chloride) 100 mls @ 200 mls/hr IV NOW ONE Stop: 11/09/24 11:22 Last Infusion: 11/09/24 12:31 Dose: Infused Documented By: Admin: 11/09/24 11:52 Dose: 200 mls/hr Documented By: KATHERINE Oseltamivir Phosphate (Oseltamivir 75 Mg Capsule) 75 mg PO NOW ONE Stop: 11/09/24 12:17 Last Admin: 11/09/24 12:52 Dose: 75 mg Documented By: JOHN Vital Signs Vital signs: Vital Signs - 8 hr 11/09/24 11:10 11/09/24 11:10 11/09/24 11:16 Temperature Pulse Rate 69 Respiratory Rate 30 H Blood Pressure 136/108 H 186/117 H Pulse Oximetry 95 11/09/24 11:16 11/09/24 11:21 11/09/24 11:21 Temperature Pulse Rate 69 69 Respiratory Rate 36 H 33 H Blood Pressure 151/64 H Pulse Oximetry 95 95 11/09/24 11:39 11/09/24 11:54 11/09/24 12:00 Temperature 101.4 F H Pulse Rate 70 69 Respiratory Rate 16 Blood Pressure Pulse Oximetry 98 11/09/24 12:27 11/09/24 12:27 11/09/24 12:30 Temperature Pulse Rate 69 Respiratory Rate Blood Pressure 168/71 H 165/69 H Pulse Oximetry 97 11/09/24 12:30 11/09/24 12:35 11/09/24 12:35 Temperature Pulse Rate 69 69 Respiratory Rate 18 16 Blood Pressure 163/72 H Pulse Oximetry 97 97 11/09/24 12:40 11/09/24 12:40 11/09/24 12:45 Temperature Pulse Rate 69 69 Respiratory Rate Blood Pressure 166/72 H Pulse Oximetry 98 11/09/24 12:45 11/09/24 12:50 11/09/24 12:50 Temperature Pulse Rate 69 Respiratory Rate 18 Blood Pressure 172/72 H 164/71 H Pulse Oximetry 96 11/09/24 12:55 11/09/24 12:55 11/09/24 13:00 Temperature Pulse Rate 69 Respiratory Rate Blood Pressure 160/70 H 162/70 H Pulse Oximetry 95 11/09/24 13:00 Temperature Pulse Rate 69 Respiratory Rate Blood Pressure Pulse Oximetry 96 MDM - URI/Sore Throat Lab Data Lab results narrative: White blood cell count 7800, hemoglobin 814.2, platelets adequate. BUN 22 with creatinine 0.75, glucose 126. Serum CO2 26, sodium 136, potassium 3.8. Liver functions and lipase unremarkable. Urinalysis negative. COVID negative, influenza A positive, influenza B and RSV negative. 11/09/24 10:35 11/09/24 10:35 Labs: Lab Results 11/09/24 11/09/24 11/09/24 Range/Units 10:35 10:45 12:35 WBC 7.8 (4.5-11.0) X10^3/uL RBC 4.11 L (4.5-5.9) X10^6/uL Hgb 14.2 (13.5-17.5) g/dL Hct 41.4 (41-53) % MCV 100.9 H (80-100) fL MCH 34.5 H (26-34) PG MCHC 34.2 (30-36) % RDW 13.0 (11.6-14.8) % Plt Count 160 (150-400) X10^3/uL Neut % (Auto) 80.3 H (50-75) % Lymph % (Auto) 10.9 L (25-40) % [place] % (Auto) 8.4 (3-14) % Eos % (Auto) 0.1 L (2-4) % Baso % (Auto) 0.3 (0-2) % Neut # (Auto) 6300 (5750-3730) /uL Lymph # (Auto) 800 L (9739-2938) /uL [place] # (Auto) 700 (0-900) /uL Eos # (Auto) 0 (0-450) /uL Baso # (Auto) 0 (0-100) /uL PT 17.5 H (9.4-12.5) SECONDS INR 1.6 H (0.9-1.3) APTT 41 H (25.1-36.5) SECONDS Sodium 136 L (137-145) mmol/L Potassium 3.8 (3.4-5.1) mmol/L Chloride 100 (98-107) mmol/L Carbon Dioxide 26 (22-32) mmol/L BUN 22 H (9-20) mg/dL Creatinine 0.75 (0.66-1.25) mg/dL Estimated GFR > 60 (>60) mL/min BUN/Creatinine Ratio 29.3 H (6-22) Glucose 126 H (80-110) mg/dL Lactate 3.4 H 2.2 H (0.7-2.1) mmol/L Calcium 8.9 (8.4-10.2) mg/dL Total Bilirubin 1.3 (0.2-1.3) mg/dL AST 45 (17-59) IU/L ALT 30 (<50) IU/L Alkaline Phosphatase 55 (38-126) U/L Total Protein 7.1 (6.3-8.2) g/dL Albumin 4.2 (3.5-5.0) g/dL Globulin 2.9 (1.7-4.1) g/dL Albumin/Globulin Ratio 1.4 (1.0-2.8) Lipase 44 (23-300) U/L Procalcitonin 0.757 H (<0.5) ng/mL Urine Color Yellow Urine Appearance Clear Urine pH 6.0 (4.5-8.0) Ur Specific [place] 1.020 (1.000-1.035) Urine Protein 2+ H (Negative) Urine Glucose (UA) Negative (Negative) g/dL Urine Ketones Trace H (NEGATIVE) Urine Occult Blood 2+ H (Negative) Urine Nitrate Negative (Negative) Urine Bilirubin 1+ H (NEGATIVE) Ur Bilirubin Confirm Negative (Negative) Urine Urobilinogen 4.0 H (0.2) E.U./dL Ur Leukocyte Esterase Negative (NEGATIVE) Urine RBC 5-10/hpf H (0-5/HPF) Urine WBC 1-5/hpf (0-5/HPF) Ur Squamous Epith Cells 1-5 /hpf (0-5/HPF) Urine Bacteria Occasional (0-1) (None) Ur Culture Indicated? Cult not indicated Vol Urine Centrifuged 10ml (spun) SARS-CoV-2 (PCR) Negative (Negative) Influenza A (RT-PCR) Flu a positive H (NEGATIVE) Influenza B (RT-PCR) Flu b negative (NEGATIVE) RSV (PCR) Negative (Negative) ECG Data Attestation: I personally reviewed and interpreted this ECG as follows: Interpretation: Ventricular paced rhythm at rate 70, significant motion artifact from tremulousness. QRS 102, QTC 414. MDM Narrative Medical decision making narrative: 79-year-old male former smoker not usually on home oxygen, lives alone, with recent change in cough, now productive for the last couple of days, feeling feverish, with generalized weakness. No persistent oxygen requirement. Bibasilar crackles without lower extremity edema. Speaks in full sentences. No wheezing. Fever on triage noted, sepsis labs sent. Lactate 3.4 elevated, IV fluid bolus. Repeat lactate after fluid bolus requested. Blood culture sent. IV ceftriaxone after cultures. EKG with paced rhythm, motion artifact from tremulousness noted. Chest x-ray with cardiomegaly but no infiltrates mentioned, see radiology report. COVID negative, flu A positive, flu B negative, RSV negative. We will give oral Tamiflu. He feels weak, unable to care for himself at home. Consider admission for generalized weakness in context of influenza A acute infection. We will contact admitting physician, PCP [place], case discussed with cross cover physician Dr. Myers, accepts patient for admission to observation 1305, call back from Dr. Myers, repeat lactate now imported was 2.2 mildly elevated but still elevated, would add sepsis as diagnosis, ceftriaxone given earlier after blood cultures, we will add oral azithromycin for community-acquired pneumonia coverage Critical Care Time Critical Care Time Critical Care Time: Yes Total Critical Care Time: 35 Attestation: The high probability of a clinically significant, sudden or life threatening deterioration of the [cardiopulmonary] system(s) required my full and direct attention, intervention and personal management. The aggregate critical care time was [35] minutes. This time is in addition to time spent performing reported procedures but includes the following: [x] Data Review and interpretation [x] Patient assessment and monitoring of vital signs [x] Documentation [x] Medication orders and management Discharge Plan Departure Patient Disposition: Admitted as Observation Clinical Impression: Generalized weakness, Influenza A, Sepsis Admit Date/Time: 11/09/24 13:02 Admit Provider: Gris Myers
--- NOTE | 2024-11-09 10:48 | DI.RAD.S_ITS ---
PROCEDURE: XR CHEST 2V INDICATIONS: cough, fever TECHNIQUE: 2 views of the chest were acquired. COMPARISON: [facility], CR, XR CHEST 1V, 04/23/2023, 13:36. FINDINGS: Surgical changes and devices: Left dual-chamber pacemaker. Aortic valve replacement. Lungs and pleura: Lungs are clear. No pleural effusions or pneumothorax. Mediastinum: Heart size is enlarged. Moderate vascular congestion. Bones and chest wall: No suspicious bony abnormalities. Soft tissues appear unremarkable. IMPRESSION: Cardiomegaly and moderate vascular congestion. No pneumothorax. Approved by: Larry Baig M.D. on 11/09/2024 at 10:58
[2024-11-09 10:56] LABS: Appearance Urine UA CLEAR; Bilirubin Urine UA 1+ (NEGATIVE); Color Urine UA YELLOW; Glucose Urine UA NEGATIVE (Negative); Ketones Urine UA TRACE (NEGATIVE); Leukocyte Esterase Urine UA NEGATIVE (NEGATIVE); Nitrite Urine UA NEGATIVE (Negative); Occult Blood Urine UA 2+ (Negative); Protein Urine UA 2+ (Negative)
[2024-11-09 10:57] LABS: Add Manual Diff / Slide Review NO; Basophils Absolute Auto 0 /uL (0-100); Basophils Percent Auto 0.3 % (0-2); Eosinophils Absolute Auto 0 /uL (0-450); Eosinophils Percent Auto 0.1 % (2-4); Hematocrit 41.4 % (41-53); Hemoglobin 14.2 g/dL (13.5-17.5); Lymphocytes Absolute Auto 800 /uL (1100-4500); Lymphocytes Percent Auto 10.9 % (25-40); Mean Corpuscular HGB Conc 34.2 % (30-36); Mean Corpuscular Hemoglobin 34.5 PG (26-34); Mean Corpuscular Volume 100.9 fL (80-100); Monocytes Absolute Auto 700 /uL (0-900); Monocytes Percent Auto 8.4 % (3-14); Neutrophils Absolute Auto 6300 /uL (1500-7000); Neutrophils Percent Auto 80.3 % (50-75); Platelet Count 160 X10^3/uL (150-400); Red Blood Cell Count 4.11 X10^6/uL (4.5-5.9); White Blood Cell Count 7.8 X10^3/uL (4.5-11.0)
[2024-11-09] MEDS: SODIUM CHLORIDE 0.9% 1,000 ML 1000 ML IV ×2 (10:57→12:34)
[2024-11-09 11:01] LABS: INR 1.6 (0.9-1.3); Prothrombin Time 17.5 SECONDS (9.4-12.5)
--- NOTE | 2024-11-09 11:01 | EKG_ITS ---
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
[2024-11-09 11:04] LABS: Lactate (Lactic Acid) 3.4 mmol/L (0.7-2.1); PTT Partial Thromboplastin Tim 41 SECONDS (25.1-36.5)
[2024-11-09 11:06] LABS: Alanine Aminotransferase 30 IU/L (<50); Albumin 4.2 g/dL (3.5-5.0); Albumin Globulin Ratio 1.4 (1.0-2.8); Alkaline Phosphatase 55 U/L (38-126); Aspartate Aminotransferase 45 IU/L (17-59); BUN Creatinine Ratio 29.3 (6-22); Bilirubin Total 1.3 mg/dL (0.2-1.3); Blood Urea Nitrogen 22 mg/dL (9-20); Calcium 8.9 mg/dL (8.4-10.2); Carbon Dioxide 26 mmol/L (22-32); Chloride 100 mmol/L (98-107); Estimated Glomerular Filt Rate > 60 mL/min (>60); Globulin 2.9 g/dL (1.7-4.1); Glucose 126 mg/dL (80-110); HEMOLYSIS < 15 (0-50); Lipase 44 U/L (23-300); Potassium 3.8 mmol/L (3.4-5.1); Sodium 136 mmol/L (137-145); Total Protein 7.1 g/dL (6.3-8.2)
[2024-11-09 11:14] LABS: Bacteria Urine Occasional (0-1); Culture Indicated Urine Cult Not Indicated; RBC Urine 5-10/HPF (0-5/HPF); Squamous Epithelial Cell Urine 1-5 /HPF (0-5/HPF); Urine Volume 10mL (spun); WBC Urine 1-5/HPF (0-5/HPF)
[2024-11-09 11:15] LABS: Ictotest Urine Negative (Negative)
[2024-11-09 11:22] LABS: Procalcitonin 0.757 ng/mL (<0.5)
[2024-11-09 11:33] LABS: Influenza A - CEPHEID Flu A POSITIVE (NEGATIVE); Influenza B - CEPHEID Flu B NEGATIVE (NEGATIVE); Respiratory Syncytial Virus Negative (Negative)
[2024-11-09 11:38] LABS: COVID-19 CEPHEID 4-PLEX PCR Negative (Negative)
[2024-11-09] MEDS: cefTRIAXone 1,000 MG in SODIUM CHLORIDE 0.9% 100 ML 200 MG IV (11:52)
[2024-11-09] MEDS: ACETAMINOPHEN 325 MG TABLET 650 MG PO (11:54)
[2024-11-09 12:28] LABS: Reflexed Lactate in 2 Hours Y
[2024-11-09] MEDS: OSELTAMIVIR 75 MG CAPSULE PO (12:52)
[2024-11-09 12:54] LABS: Lactate 2HR (Lactic Acid Rflx) 2.2 mmol/L (0.7-2.1)
[2024-11-09] MEDS: AZITHROMYCIN 250 MG TABLET 500 MG PO (13:13)
--- NOTE | 2024-11-09 16:03 | P.HP_ITS ---
History of Present Illness History of Present Illness Date Patient Seen: 11/09/24 Time Patient Seen: 18:52 Date of Onset of Symptoms: 11/07/24 Chief complaint: cough/chills/back & leg pain Narrative: This is a very pleasant patient of Dr. Garcia who is seen in [facility]. Patient was in his usual state of health and several days ago started developing a cough. He was becoming incredibly weak and unable to care for himself and came to the ER for evaluation. Workup revealed a normal chest x-ray and influenza positive with normal white blood cell count, low-grade fever, positive procalcitonin and lactate. Blood cultures are pending he was given ceftriaxone and azithromycin for suspected post influenza community-acquired pneumonia and was admitted for further treatment. He was given Tamiflu as well. Patient required 3 people to transfer from the ER gurney to the hospital bed. This is not his baseline. He is currently not requiring oxygen though on initial presentation to the ER was in the 89%. Patient has a history of heart disease with pacemaker for complete heart block, prepped paroxysmal atrial fibrillation and TAVR in 2021. Patient has had significant weight loss thought to be due to stress due to concern for his and her ongoing illness. She is currently in a skilled care facility and patient is very worried about her. Otherwise patient denies any rashes or vomiting or diarrhea or blood in his stool. He has had a very poor appetite. He has been trying to keep fluids down. He denies any chest pain. He denies any significant shortness of breath. Denies any abdominal pain. Denies any urinary symptoms. Reviewed cardiology note and clinic note from Dr. Garcia PMH: P afib pacemaker for complete heart block chronic anticoagulation hyperlipidemia Paroxysmal nonsustained ventricular tachycardia Acute heart failure with preserved EF (HFpEF) Barretts esophagus pad GERD HTN Eliquis Baby aspirin Simvastatin although patient states he has not on it any longer although it is in his med list from our clinic chart Allergies: No known drug allergies PSHx: TAVR 2021 Health related behavior: Patient has a distant history of tobacco abuse. Patient is not use alcohol regularly. Family history is negative for pulmonary problems Mother from liver cancer and father from lung cancer Social history: Patient lives in private residence here in [facility]. He is and his is having health problems in his currently in a skilled care facility. He has children who are local and are attentive and helpful 12 point review of systems is otherwise negative [facility] Medical History Scoliosis of cervical region due to degenerative disease of spine in adult Closed L3 vertebral fracture Pars defect with spondylolisthesis Cervical spondylosis Weakness Gait instability Arthritis Family History Mother Cancer Father Cancer Social History marital status: household members: spouse lives independently: Yes Smoking Status: Former smoker Smokeless tobacco user: other quit status: quit date established second hand exposure: No alcohol intake: former substance use type: does not use Meds Home Medications and Allergies Home Medications Medication Instructions Recorded Confirmed Type ascorbic acid (vitamin C) 500 mg See Rx Instructions PO .COMPLEX 03/30/18 11/09/24 History capsule aspirin 81 mg chewable tablet 81 mg PO DAILY 03/30/18 11/09/24 History ([place] Chewable Low Dose Aspirin) apixaban 5 mg tablet (Eliquis) 5 mg PO BID 11/09/24 11/09/24 History Allergies Allergy/AdvReac Type Severity Reaction Status Date / Time No Known Drug Allergies Allergy Verified 11/09/24 10:15 Exam Vital Signs (past 8 hours): - 11/09/24 10:16 11/09/24 10:22 11/09/24 10:25 Temperature 97.8 F Pulse Rate 71 69 Respiratory Rate 16 Blood Pressure 159/92 H 132/78 Pulse Oximetry 97 Oxygen Delivery Method Room Air Oxygen Flow Rate 11/09/24 10:25 11/09/24 10:30 11/09/24 10:30 Temperature Pulse Rate 79 71 Respiratory Rate 25 H 28 H Blood Pressure 131/60 Pulse Oximetry 93 Oxygen Delivery Method Room Air Oxygen Flow Rate 11/09/24 10:41 11/09/24 10:45 11/09/24 10:45 Temperature 101.4 F H Pulse Rate 71 Respiratory Rate 33 H Blood Pressure 125/67 Pulse Oximetry 96 Oxygen Delivery Method Room Air Oxygen Flow Rate 11/09/24 10:51 11/09/24 10:51 11/09/24 10:56 Temperature Pulse Rate 75 Respiratory Rate Blood Pressure 159/81 H 172/68 H Pulse Oximetry 95 Oxygen Delivery Method Oxygen Flow Rate 11/09/24 10:56 11/09/24 11:00 11/09/24 11:10 Temperature Pulse Rate 69 69 Respiratory Rate 32 H 28 H Blood Pressure 136/108 H Pulse Oximetry 97 96 Oxygen Delivery Method Room Air Room Air Oxygen Flow Rate 11/09/24 11:10 11/09/24 11:16 11/09/24 11:16 Temperature Pulse Rate 69 69 Respiratory Rate 30 H 36 H Blood Pressure 186/117 H Pulse Oximetry 95 95 Oxygen Delivery Method Oxygen Flow Rate 11/09/24 11:21 11/09/24 11:21 11/09/24 11:39 Temperature Pulse Rate 69 70 Respiratory Rate 33 H Blood Pressure 151/64 H Pulse Oximetry 95 Oxygen Delivery Method Oxygen Flow Rate 11/09/24 11:54 11/09/24 12:00 11/09/24 12:27 Temperature 101.4 F H Pulse Rate 69 Respiratory Rate 16 Blood Pressure 168/71 H Pulse Oximetry 98 Oxygen Delivery Method Oxygen Flow Rate 11/09/24 12:27 11/09/24 12:30 11/09/24 12:30 Temperature Pulse Rate 69 69 Respiratory Rate 18 Blood Pressure 165/69 H Pulse Oximetry 97 97 Oxygen Delivery Method Oxygen Flow Rate 11/09/24 12:35 11/09/24 12:35 11/09/24 12:40 Temperature Pulse Rate 69 Respiratory Rate 16 Blood Pressure 163/72 H 166/72 H Pulse Oximetry 97 Oxygen Delivery Method Oxygen Flow Rate 11/09/24 12:40 11/09/24 12:45 11/09/24 12:45 Temperature Pulse Rate 69 69 Respiratory Rate Blood Pressure 172/72 H Pulse Oximetry 98 Oxygen Delivery Method Oxygen Flow Rate 11/09/24 12:50 11/09/24 12:50 11/09/24 12:55 Temperature Pulse Rate 69 Respiratory Rate 18 Blood Pressure 164/71 H 160/70 H Pulse Oximetry 96 Oxygen Delivery Method Oxygen Flow Rate 11/09/24 12:55 11/09/24 13:00 11/09/24 13:00 Temperature Pulse Rate 69 69 Respiratory Rate Blood Pressure 162/70 H Pulse Oximetry 95 96 Oxygen Delivery Method Oxygen Flow Rate 11/09/24 13:05 11/09/24 13:05 11/09/24 13:19 Temperature 99.4 F Pulse Rate 69 Respiratory Rate Blood Pressure 159/70 H Pulse Oximetry 96 Oxygen Delivery Method Room Air Oxygen Flow Rate 11/09/24 13:19 11/09/24 13:49 11/09/24 13:54 Temperature 99.4 F 100.0 F H Pulse Rate 70 Respiratory Rate 17 Blood Pressure 147/65 H Pulse Oximetry 94 Oxygen Delivery Method Room Air Oxygen Flow Rate 0 Oxygen Delivery Method Room Air Oxygen Flow Rate 0 Narrative Exam Narrative: Patient is alert and oriented in no apparent distress. He is very slow to speak. HEENT is remarkable for slightly dry mucous membranes but no concerning lesions Neck: Supple without adenopathy or thyromegaly Chest: Shows rhonchi right base but no wheezes. No increased work of breathing no nasal flaring or intercostal retraction Cor: Regular rate and rhythm with distant S1-S2 with systolic murmur heard loudest at the left upper sternal border Abdomen: Positive bowel sounds, soft, nontender, nondistended Extremities are no edema Neurologic exam is nonfocal other than patient is slow to answer questions Skin no rashes Objective Labs 11/09/24 10:35 11/09/24 10:35 Labs: Laboratory Results - last 24 hr 11/09/24 11/09/24 11/09/24 10:35 10:45 12:35 WBC 7.8 RBC 4.11 L Hgb 14.2 Hct 41.4 MCV 100.9 H MCH 34.5 H MCHC 34.2 RDW 13.0 Plt Count 160 Neut % (Auto) 80.3 H Lymph % (Auto) 10.9 L [place] % (Auto) 8.4 Eos % (Auto) 0.1 L Baso % (Auto) 0.3 Neut # (Auto) 6300 Lymph # (Auto) 800 L [place] # (Auto) 700 Eos # (Auto) 0 Baso # (Auto) 0 PT 17.5 H INR 1.6 H APTT 41 H Sodium 136 L Potassium 3.8 Chloride 100 Carbon Dioxide 26 BUN 22 H Creatinine 0.75 Estimated GFR > 60 BUN/Creatinine Ratio 29.3 H Glucose 126 H Lactate 3.4 H 2.2 H Calcium 8.9 Total Bilirubin 1.3 AST 45 ALT 30 Alkaline Phosphatase 55 Total Protein 7.1 Albumin 4.2 Globulin 2.9 Albumin/Globulin Ratio 1.4 Lipase 44 Procalcitonin 0.757 H Urine Color Yellow Urine Appearance Clear Urine pH 6.0 Ur Specific [employer] 1.020 Urine Protein 2+ H Urine Glucose (UA) Negative Urine Ketones Trace H Urine Occult Blood 2+ H Urine Nitrate Negative Urine Bilirubin 1+ H Ur Bilirubin Confirm Negative Urine Urobilinogen 4.0 H Ur Leukocyte Esterase Negative Urine RBC 5-10/hpf H Urine WBC 1-5/hpf Ur Squamous Epith Cells 1-5 /hpf Urine Bacteria Occasional (0-1) Ur Culture Indicated? Cult not indicated Vol Urine Centrifuged 10ml (spun) SARS-CoV-2 (PCR) Negative Influenza A (RT-PCR) Flu a positive H Influenza B (RT-PCR) Flu b negative RSV (PCR) Negative Assessment & Plan Assessment & Plan narrative: 79-year-old male admitted with acute influenza infection and possible community- acquired pneumonia with presentation significant for sepsis due to febrile with hypertension and elevated lactate x2 and procalcitonin. Assessment 1. Influenza a Plan: Admitted to general medical floor with routine infectious precautions and will continue Tamiflu. Will continue with supportive care with physical therapy, incentive spirometry and Tylenol and cough medicine as needed Assessment 2. Possible community-acquired pneumonia with normal chest x-ray but suspect this may have been because he was dehydrated. More concerning lung findings now but patient is stable on room air. Plan: Will continue ceftriaxone and azithromycin. Will do incentive spirometer and consult respiratory therapy. Repeat chest x-ray pending how he does clinically. Recheck labs in the morning Assessment 3. Profound weakness. Unclear what his baseline is. Will treat influenza and community-acquired pneumonia and will workup further if not improving Assessment 4. History of PE AFib on chronic anticoagulation Plan: Will continue same outpatient Eliquis Assessment 5. Hyperlipidemia with chart stating he is on simvastatin but patient states he has not Plan: Will hold for now Code status is full code 77 minutes spent with patient discussing with ER physician, nursing, meeting with patient, reviewing his chart and workup in the ER as well as in the outpatient setting, formulating a plan and documentation Time-Based Coding :: [TOTAL MINUTES] spent with patient and on the chart (including review of chart, obtaining history, exam, reviewing outside data, placing orders, documenting exam and treatment plan, and counseling patient) on [DATE].
[2024-11-09] MEDS: guaiFENesin Solution 100 MG/5 ML UDC PO (17:38)
[2024-11-09] MEDS: APIXABAN 5 MG TABLET PO (21:02)
[2024-11-09] MEDS: SODIUM CHLORIDE 0.9% FLUSH 10 ML IV (21:02)
[2024-11-10 02:00] VITALS: BP 149/73; PULSE 70; RESP 16; TEMP 36.4; O2SAT 96
[2024-11-10 07:00] LABS: Add Manual Diff / Slide Review NO; Basophils Absolute Auto 0 /uL (0-100); Basophils Percent Auto 0.1 % (0-2); Eosinophils Absolute Auto 0 /uL (0-450); Eosinophils Percent Auto 0.3 % (2-4); Hematocrit 35.4 % (41-53); Hemoglobin 12.2 g/dL (13.5-17.5); Lymphocytes Absolute Auto 1000 /uL (1100-4500); Lymphocytes Percent Auto 13.4 % (25-40); Mean Corpuscular HGB Conc 34.3 % (30-36); Mean Corpuscular Hemoglobin 34.4 PG (26-34); Monocytes Absolute Auto 700 /uL (0-900); Neutrophils Absolute Auto 5500 /uL (1500-7000); Neutrophils Percent Auto 76.2 % (50-75); Platelet Count 143 X10^3/uL (150-400); Red Blood Cell Count 3.54 X10^6/uL (4.5-5.9); Red Cell Distribution Width 12.5 % (11.6-14.8); White Blood Cell Count 7.2 X10^3/uL (4.5-11.0)
[2024-11-10 07:12] LABS: BUN Creatinine Ratio 24.6 (6-22); Blood Urea Nitrogen 16 mg/dL (9-20); Calcium 8.1 mg/dL (8.4-10.2); Carbon Dioxide 23 mmol/L (22-32); Chloride 101 mmol/L (98-107); Estimated Glomerular Filt Rate > 60 mL/min (>60); Glucose 85 mg/dL (80-110); HEMOLYSIS < 15 (0-50); Potassium 3.2 mmol/L (3.4-5.1); Sodium 131 mmol/L (137-145)
[2024-11-10 08:30] VITALS: BP 128/59; PULSE 76; RESP 19; TEMP 36.5; O2SAT 96
[2024-11-10] MEDS: DOCUSATE 100 MG CAPSULE PO (08:30)
[2024-11-10] MEDS: SODIUM CHLORIDE 0.9% FLUSH 10 ML IV ×2 (08:30→20:20)
[2024-11-10] MEDS: ASCORBIC ACID 500 MG TABLET 1000 MG PO (08:30)
[2024-11-10] MEDS: ASPIRIN 81 MG CHEW TAB PO (08:30)
[2024-11-10] MEDS: guaiFENesin Solution 100 MG/5 ML UDC PO (08:30)
[2024-11-10] MEDS: APIXABAN 5 MG TABLET PO ×2 (08:30→20:21)
--- NOTE | 2024-11-10 09:41 | PT.IIE ---
Medical History (Last Reviewed 11/09/24 @ 18:58 by Gris Myers MD) Arthritis Cervical spondylosis Closed L3 vertebral fracture Gait instability Pars defect with spondylolisthesis Scoliosis of cervical region due to degenerative disease of spine in adult Weakness Physical Therapy Inpatient Evaluation/Re-Eval M1 PT/OT-IP Prior Functional Status Start: 11/10/24 09:02 Freq: NEEDED Status: Active Protocol: Document 11/10/24 09:11 MB (Rec: 11/10/24 09:40 MB [id number]) Medical Review Prior Functional Status Medical History Reviewed Yes Communication Unsure baseline diet, pt presents with confusion and his speech is slurred and PT notes hypertrophied B SCMs and little oral movement, swallowing during verbalizations, pt cannot report if he has coughing after eating, he may benefit from FACING SLITTER consult Mobility and Gait Unclear but it appears that he walks with his one walking stick, he cannot report if he has falls Activities of Daily Living and IADL's He states he lives with his and they look after each other but they do not drive, unsure if they have more help at home Social History Household Members spouse Living Arrangements House Number of Floors (Floors) One Floor Number of Stairs To Enter/Railing? 2 steps and right rail to enter duplex Home Environment High Toilet,Tub/Shower Home Equipment Tub Transfer Bench,Hand Held Shower,Grab Bars Near Toilet, Grab Bars In Shower Employment Status Retired M2 PT-IP Current Condition Start: 11/10/24 09:02 Freq: NEEDED Status: Active Protocol: Document 11/10/24 09:11 MB (Rec: 11/10/24 09:40 MB [id number]) Physical Therapy Current Condition Current Condition Evaluation Date 11/10/24 Treatment Diagnosis Influenza A M3 PT-IP Subjective Start: 11/10/24 09:02 Freq: NEEDED Status: Active Protocol: Document 11/10/24 09:11 MB (Rec: 11/10/24 09:40 MB [id number]) Subjective Physical Therapy Visit Type Type Initial Evaluation Visit Start Time 09:11 Visit Stop Time 09:31 Number of WRIST HEMMER Visits 0 Physical Therapy Visit Comments Patient Comments Pt is hypoverbal and presents with confusion, can answer some orientation questions. M4 PT-IP Mobility and Gait Start: 11/10/24 09:02 Freq: NEEDED Status: Active Protocol: Document 11/10/24 09:11 MB (Rec: 11/10/24 09:40 MB [id number]) PT-Bed Mobility Assessment Rolling Type of Rolling Roll to Left Level of Assist Contact Guard Assistance,1 Person Assistance Supine to Sit Supine to Sit Contact Guard Assistance,Head of Bed Elevated,Bedrails Scooting Scooting to Edge of Bed Contact Guard Assistance PT-Transfer Assessment Sit to and From Stand Sit to and from Stand Maximum Assistance,1 Person Assistance,Use of Upper Extremities Equipment Transfer Assistive Device Gait Belt,Front Wheeled Walker Orthotic/Prosthetic Devices or Brace: No Transfers Transfer Destination Chair Transfer Technique Stand Step Pivot Transfer Ability Level of Assist Maximum Assistance,1 Person Assistance,Use of Upper Extremities Comments Mobility Comments Attempted standing up to walker to try stepping and pt with severe posterior lean and he cannot advance feet, returned to sitting and then PT assists with gait belt for stand step pivot to the left to the chair, pt con't with severe posterior lean, decreased command-following and inability to step PT-Balance Assessment Sitting Balance and Reactions Static Sitting Balance Ability Fair Dynamic Sitting Balance Ability Fair Standing Balance and Reactions Static Standing Balance Ability Poor Dynamic Standing Balance Ability Poor Device Used Max A and gait belt M5 PT-IP Objective Assessments Start: 11/10/24 09:02 Freq: NEEDED Status: Active Protocol: Document 11/10/24 09:11 MB (Rec: 11/10/24 09:40 MB [id number]) Orientation Orientation/Cognition Level of Alertness Confusional State Orientation Name,Birthday,Month,Year Safety Awareness Decreased Safety Awareness Memory Description Short Term Impaired,Care Home Impaired Comments Unsure baseline diet, pt presents with confusion and his speech is slurred and PT notes hypertrophied B SCMs and little oral movement, swallowing during verbalizations, pt cannot report if he has coughing after eating, he may benefit from FACING SLITTER consult as well as cognitive assessment Gross Range of Motion Upper Extremity ROM Impairments Does not follow ROM or MMT commands today Lower Extremity ROM Impairments Does not follow ROM or MMT commands today Strength Comments Strength Comments Does not follow ROM or MMT commands today, functionally weak in legs with standing and attempting stepping Coordination Assessment Gross Coordination Gross Coordination Impaired Assessment Coordination Comments Not formally assesed d/t confusion Sensation Assessment Comments Sensation Comments Not formally assessed d/t confusion M6 PT-IP Treatment Start: 11/10/24 09:02 Freq: NEEDED Status: Active Protocol: Document 11/10/24 09:11 MB (Rec: 11/10/24 09:40 MB [id number]) Physical Therapy Treatment Education Education Provided Safety M7 PT-IP Assessment and Plan Start: 11/10/24 09:02 Freq: NEEDED Status: Active Protocol: Document 11/10/24 09:11 MB (Rec: 11/10/24 09:40 MB [id number]) PT Summary Assessment and Plan Potential Rehabilitation Potential Fair Status of Condition at Evaluation Evolving Summary Impairments ROM,Strength,Balance, Coordination,Cognition,Bed Mobility,Transfers,Gait, Activity Tolerance Progress Towards Goals Slow Progress - Other Assessment Summary Pt is an 79 y/o male adm with influenza A. Pt presents with confusion and his speech is slurred and PT notes hypertrophied B SCMs and little oral movement and swallowing during verbalizations. Pt cannot report if he has coughing after eating. He may benefit from FACING SLITTER consult as well as cognitive assessment. Pt has trouble following commands today and presents with strong posterior lean and he cannot take steps with walker and so transitioned to SPT to chair. Currently, he will require SNF at d/c. Goals Bed Mobility Goal Independent Transfer Goal Standby Assistance,Cane,Front Wheeled Walker Gait Goal Standby Assistance,Cane,Front Wheel Walker Gait Distance 75 Other Goals Pt will ascend and descend 2 steps with right rail and no more than SBA to allow safe home entrance. Days to Meet Goals 5 Frequency of Treatment Frequency Of Treatment Once a Day Other frequency x2 Treatment Plan Physical Therapy Treatment Plan Bed Mobility Training,Transfer Training,Gait Training, Therapeutic Exercise,Balance Retraining,Discharge Planning, Hot or Cold Pack,Neuromuscular Re-ed,Coordination Retraining ,Manual Therapy Precautions Other Precautions Flu (droplet), falls Recommendations To Nursing Amount of Assist Needed 2 Person Assist Discharge Recommendations PT Discharge Recommendations SNF Rehab Transportation Needs at Discharge Wheelchair/Cabulance
[2024-11-10] MEDS: POTASSIUM CHLORIDE 20 MEQ TAB 40 MEQ PO ×2 (10:42→14:49)
[2024-11-10] MEDS: cefTRIAXone 1,000 MG in SODIUM CHLORIDE 0.9% 100 ML 200 MG IV (10:43)
--- NOTE | 2024-11-10 10:54 | CM.DANOTE ---
Addendum entered by CROW Garcia 11/10/24 13:59: Per Cathy at , can accept pt once 3midnights/medically stable (need to confirm when INPT order, if from today will be MCR ready 11/13). pt will have to be on isolation at first but then can move into room with spouse. BANQUET LINE COOK updated son Sheldon ANGUIANO ([phone]). in agreement with plan. BANQUET LINE COOK answered questions to best of ability. son out of town next week, brothers out of town 07-01. can coordinate pt's dc from on the and be reached by phone at any time. Were already working on hiring [facility] at home. son reports spouse Sheila has keys with her luggage at to the home if needed. dc to [facility] when medically stable. CM team will continue to follow closely for DCP coordination with pt/family. SL Original Note: B DCP Assessment note pt is a 79yo M admitted with sepsis/flu/weakness INPT as of 11/09/24. MCR ready for SNF=3/ PCP Dr. [place] Nunez Medicare and [facility] BANQUET LINE COOK reviewed EMR. per chart, pt lives at home with spouse Sheila in [place]. per RN report/chart review spouse currently at . Per RN, pt son (SILVIO Chung) and dtr Amalia were hopeful pt could DC to as well. per charge attendant, pt reportedly more confused than his baseline at the moment. Per PT, rec SNF. max assist. likely could benefit from TESTING SPECIALIST/OT anam Monday, presented with weird swallow thing/could benefit from SLUMS. uses walking sticks at baseline, BANQUET LINE COOK spoke with February at , kindly agreed to review. PASRR needed- pending due to acute confusion currently that is not pt's reported baseline. P: pending acceptance, dc to [facility] when medically stable. CM team will continue to follow closely for DCP coordination with pt/family. CROW Garcia Discharge Planning/Care Management CM Discharge Assessment Start: 11/10/24 10:50 Freq: Status: Active Protocol: Document 11/10/24 10:50 SL (Rec: 11/10/24 10:54 SL [id number]) Discharge Planning Assessment Assigned Bumper Machine Operator CROW Gilmore DPOA/Assigned Designee Name Sheila, spouse. Alexander ANGUIANO Contact Information [phone], Advance Directives? Yes Advance Directives on File Yes History Provided By Patient,Medical Record Prior Living Arrangements House Household Members spouse Type of transporation used prior to Relies on Others admit DME Already Rented / Owned Other Patient/Family Preference Nursing Home Facility Discharge Plan Nursing Home Facility Referrals Initiated Nursing Home SNF/HH Preference [facility], is currently there Has Agency SNF been contacted Yes Review Status In Process Please Provide Date Initial DC 11/10/24 Assessment Was Performed Next Review Type Continued Stay Review
--- NOTE | 2024-11-10 11:31 | DI.CT.S_ITS ---
PROCEDURE: CT HEAD/BRAIN WO CON INDICATIONS: confusion TECHNIQUE: Noncontrast 4.5 mm thick angled axial sections acquired from the foramen magnum to the vertex, with coronal and sagittal reformats. For radiation dose reduction, the following was used: automated exposure control, adjustment of mA and/or kV according to patient size. COMPARISON: [facility], CT, CT HEAD/BRAIN WO CON, 06/01/2023, 14:40. FINDINGS: CSF spaces: Basal cisterns are patent. No extra-axial fluid collections. Ventricles are normal in size and shape. Brain: Moderate atrophy and white matter chronic ischemic change. 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 No evidence of intracranial hemorrhage or mass effect. Skull and face: Calvarium and visualized facial bones are intact, without suspicious lesions. Sinuses: Right maxillary sinus mucosal thickening and debris with osseous wall thickening is stable from the prior IMPRESSION: Moderate atrophy and white matter chronic ischemic change. Chronic right maxillary mucosal sinus disease Approved by: Larry Baig M.D. on 11/10/2024 at 11:51
--- NOTE | 2024-11-10 11:39 | PM.PN.1 ---
Subjective Subjective Date Patient Seen: 11/10/24 Time Patient Seen: 11:39 Interval history: Patient had unremarkable night. He seems to be stronger today. He was alert to person and date but not to place. Does not know why he is here. He is currently worried about his wallet and fearful that he lost it. When asked if he had difficulty sleeping or if he slept okay he states that he does not know. He is tolerating p.o.. He states that he is having difficulty coughing. Twelve point review of systems otherwise negative No rash. No fever overnight. No chest pain. He denies shortness or breath. He denies any abdominal pain. Exam Vital Signs (past 8 hours): - 11/10/24 08:30 Temperature 97.7 F Pulse Rate 76 Respiratory Rate 19 Blood Pressure 128/59 L Pulse Oximetry 96 Oxygen Flow Rate 0 Oxygen Delivery Method Room Air Oxygen Flow Rate 0 Narrative Exam Narrative: Patient coloring is better today. He is more engaged. He still is hypoverbal and slow to respond but improved from yesterday. Difficult to understand speech yesterday but today I am able to more easily HEENT shows mucous membranes moist and pink without mucosal lesions Neck is supple without adenopathy Chest: Diffuse wheezes rhonchi right greater than left and decreased breath sounds right greater than left Cor: Regular rate and rhythm with unchanged murmur, distant S1-S2 Extremities no edema, pulses intact Abdomen: Positive bowel sounds, soft, nontender, thin Neurologic exam nonfocal other than confusion and slow speech Objective Labs 11/10/24 06:30 11/10/24 06:30 Labs: Laboratory Results - last 24 hr 11/09/24 11/09/24 11/10/24 12:35 18:25 06:30 WBC 7.2 RBC 3.54 L Hgb 12.2 L Hct 35.4 L MCV 100.0 MCH 34.4 H MCHC 34.3 RDW 12.5 Plt Count 143 L Neut % (Auto) 76.2 H Lymph % (Auto) 13.4 L [place] % (Auto) 10.0 Eos % (Auto) 0.3 L Baso % (Auto) 0.1 Neut # (Auto) 5500 Lymph # (Auto) 1000 L [place] # (Auto) 700 Eos # (Auto) 0 Baso # (Auto) 0 Sodium 131 L Potassium 3.2 L Chloride 101 Carbon Dioxide 23 BUN 16 Creatinine 0.65 L Estimated GFR > 60 BUN/Creatinine Ratio 24.6 H Glucose 85 Lactate 2.2 H 1.0 Calcium 8.1 L PFSH Medical History Scoliosis of cervical region due to degenerative disease of spine in adult Closed L3 vertebral fracture Pars defect with spondylolisthesis Cervical spondylosis Weakness Gait instability Arthritis Family History Mother Cancer Father Cancer Social History marital status: household members: spouse lives independently: Yes Smoking Status: Former smoker Smokeless tobacco user: other quit status: quit date established second hand exposure: No alcohol intake: former substance use type: does not use Assessment & Plan Assessment & Plan narrative: 79-year-old male admitted with acute influenza infection and possible community-acquired pneumonia with presentation significant for sepsis due to febrile with hypertension and elevated lactate x2 and procalcitonin. Assessment 1. Influenza a Plan: Admitted to general medical floor with routine infectious precautions and will continue Tamiflu. Will continue with supportive care with physical therapy, incentive spirometry and Tylenol and cough medicine as needed and physical therapy Assessment 2. Possible community-acquired pneumonia with normal chest x-ray but suspect this may have been because he was dehydrated. More concerning lung findings now but patient is stable on room air. Plan: Will continue ceftriaxone and azithromycin. We will do chest x-ray today to look for pleural effusion etc. Will continue incentive spirometer and appreciate respiratory therapy. Will have them work with him in terms of more effective cough Assessment 3. Profound weakness. Unclear what his baseline is. Will treat influenza and community-acquired pneumonia and will workup further if not improving Assessment 4. History of PE AFib on chronic anticoagulation per Cardiology note I think they ordered outpatient echo which he is due for. Plan: Will continue same outpatient Eliquis. We will check chest x-ray rule out fluid overload Assessment 5. Hyperlipidemia with chart stating he is on simvastatin but patient states he has not Plan: Will hold for now Assessment 6. Confusion suspect multifactorial. Certainly related to acute illness. Since this is my 1st time meeting him and I do not see any documentation of dementia or depression in his chart unclear what his baseline is. We will do a CT without contrast of his head due to acute confusion persisting and patient on a blood thinner. I think if this is negative then unless he is significantly improved tomorrow would proceed with MRI. Assessment 7. History of hypertension but then recent note from clinic states that he was orthostatic and likely due to weight loss of unclear etiology and antihypertensives were discontinued. Patient has been hypertensive since admission however now is normotensive. We will monitor. Consider repeating echo. Code status is full code 57 minutes spent with patient discussing with nursing, meeting with patient, reviewing his chart and workup in the ER as well as in the outpatient setting, formulating a plan and documentation Time-Based Coding :: [TOTAL MINUTES] spent with patient and on the chart (including review of chart, obtaining history, exam, reviewing outside data, placing orders, documenting exam and treatment plan, and counseling patient) on [DATE].
--- NOTE | 2024-11-10 11:47 | DI.RAD.S_ITS ---
PROCEDURE: XR CHEST 1V INDICATIONS: cough TECHNIQUE: One view of the chest was acquired. COMPARISON: [facility], CR, XR CHEST 2V, 11/09/2024, 11:08. FINDINGS: Surgical changes and devices: Dual-chamber left-sided pacemaker. Aortic valve replacement. Lungs and pleura: Lungs are clear. No pleural effusions or pneumothorax. Mediastinum: Mediastinal contours appear normal. Heart size is normal. Bones and chest wall: No suspicious bony lesions. Overlying soft tissues appear unremarkable. IMPRESSION: No acute cardiopulmonary abnormality is seen. Approved by: Larry Baig M.D. on 11/10/2024 at 11:48
[2024-11-10 12:00] VITALS: BP 143/76; PULSE 69; RESP 20; TEMP 36.4; O2SAT 98
[2024-11-10 12:13] LABS: NT-proBNP (BNP-Adult 18+) 11000 pg/mL (<450)
[2024-11-10] MEDS: OSELTAMIVIR 75 MG CAPSULE PO ×2 (12:27→20:21)
[2024-11-10] MEDS: AZITHROMYCIN 250 MG TABLET PO (12:27)
[2024-11-10 12:36] LABS: Thyroid Stimulating Hormone 1.51 uIU/mL (0.47-4.68)
[2024-11-10 13:11] LABS: Folate 5.4 ng/mL (2.76-20.0); Vitamin B12 > 1000 pg/mL (239-931)
--- NOTE | 2024-11-10 18:46 | PC.NURSE ---
Day shift: Patient A&Ox1-2. He persevorated on his missing wallet and phone most of the day and seemed to forget conversations that happened 10 minutes prior. Patient not using call light. Bed and chair alarm on at all times. Patient repeatedly attempting to get out of bed, though could be easily redirected. At 1830, this RN heard a boom in the patient's room. Patient lying on the floor on his left side with no clothes on. He reported he fell while trying to get his meds and wallet. No new bruises or abrasions. Patient denies hitting head, and no abrasions, bleeding or abrasions on head. Notified coordinator Cindy. Vitals remained stable. Used 3 people to help patient back into bed. Notified MD Myers. Let her know that he denies hitting head, that he reports L shoulder pain, but has full range of motion. MD Myers ordered Seroquel PO for patient to start this evening. CT and chest xray today unremarkable. Will continue to closely monitor.
[2024-11-10 19:00] VITALS: BP 155/70; PULSE 72; RESP 18; TEMP 36.8; O2SAT 97
[2024-11-10] MEDS: QUETIAPINE 25 MG TABLET 12.5 MG PO (20:20)
--- NOTE | 2024-11-11 06:21 | DI.ECHO.S_ITS ---
[place] [facility] : : [address] : : [place] : : [id number] : : Phone: [phone] Echocardiogram Report + + :Name: BRENDA XIE Study Date: 11/11/2024 Height: 66 in : :Hospital ReadingLocation: Weight: 141 lb : : Gender: Male BSA: 1.7 m2 : :: 1945 Age: 79 yrs BP: 155/70 mmHg: :Reason For Study: Atrial fibrillation : : Performed By: Alejandra Machado : :Referring: HOLGER HENDRIX : + + Interpretation Summary Normal left ventricle size with ejection fraction 50-55%. There is apical inferior wall severe hypokinesis. There is apical lateral wall akinesis. There is severe biatrial enlargement. There is a catheter/pacemaker lead seen in the right atrium. There is a prosthetic aortic valve. Mild to moderate mitral annular calcification. Moderate mitral regurgitation. Moderate tricuspid regurgitation. The right ventricular systolic pressure is estimated to be at least 61 mmHg based on an estimated right atrial pressure of 8 mm Hg. Comparison is made with the echocardiogram of 12/06/2021, pacer wire is new, with new wall motion abnormality. The prosthetic aortic valve is new. Tricuspid regurgitation has worsen with increased RV sytolic pressure. Procedure: A two-dimensional transthoracic echocardiogram with color flow and Doppler was performed. The study quality was technically adequate. Comparison is made with the echocardiogram of 12/06/2021. The heart rate ranged between 70 bpm during the study. The patient has a paced rhythm. Left Ventricle: The left ventricle is normal in size and wall thickness. The ejection fraction is estimated to be 50-55%. There is apical inferior wall severe hypokinesis. There is apical lateral wall akinesis. There are no other obvious focal wall motion abnormalities. Diastolic function could not be accurately assessed due to paced rhythm. Right Ventricle: There is a pacemaker lead in the right ventricle. The right ventricle is normal in size and function. Atria: There is severe biatrial enlargement. There is a catheter/pacemaker lead seen in the right atrium. There is no Doppler evidence for an interatrial shunt. Mitral Valve: There is mild to moderate mitral annular calcification. The mitral valve leaflets are mildly calcified. There is moderate mitral regurgitation. Aortic Valve: There is a prosthetic aortic valve. There is no aortic valve stenosis. The peak aortic velocity is 1.6 m/sec. 5.8. The calculated aortic valve area is 1.8 cm2. No aortic regurgitation is present. Tricuspid Valve: The tricuspid valve leaflets are thin and pliable. There is moderate tricuspid regurgitation. The right ventricular systolic pressure is estimated to be at least 61 mmHg based on an estimated right atrial pressure of 8 mm Hg. Pulmonic Valve: The pulmonic valve is not well visualized. There is no pulmonic valvular regurgitation. Great Vessels: The ascending aorta could not be visualized. The IVC is dilated (diameter is greater than 2.1 cm) yet it collapses greater than 50% with a sniff. This suggests a right atrial pressure of 8 mm Hg. Pericardium/ Pleura There is no pericardial effusion. There is no pleural effusion. MMode/2D Measurements & Calculations LVIDd: 5.6 cm LVOT diam: 2.0 cm LVIDs: 4.1 cm FS: 27.5 % EPSS: 2.6 cm IVSd: 0.94 cm LVPWd: 1.0 cm LV parra. diameter/BSA (cm/m^2): 3.3 LV sys. diameter/BSA (cm/m^2): 2.4 LA A2 area: 34.0 cm2 RA long axis: 5.5 cm LA A4 area: 28.4 cm2 RA area: 23.9 cm2 LA length (vol): 6.4 cm RA vol: 87.7 ml LA vol: 129.2 ml RA : 50.9 ml/m2 LA vol index: 74.9 ml/m2 IVC diam: 2.1 cm RVD1 (basal): 4.0 cm TAPSE: 1.8 cm Doppler Measurements & Calculations Ao V2 max: 164.7 cm/sec LVOT Max Phil: 91.6 cm/sec Ao V2 mean: 113.6 cm/sec LV V1 max P.4 mmHg Ao max P.9 mmHg LV V1 VTI: 15.0 cm Ao mean P.8 mmHg DENISSE(I,D): 1.8 cm2 Ao V2 VTI: 27.0 cm DENISSE(V,D): 1.8 cm2 sev ratio: 0.56 DENISSE indexed to BSA (cm^2/m^2): 1.0 MV E max phil: 110.0 cm/sec TR max phil: 361.7 cm/sec MV A max phil: 28.8 cm/sec TR max P.0 mmHg MV E/A: 3.8 PA V2 max: 75.0 cm/sec Med Peak E' Phil: 5.6 cm/sec PA V2 mean: 48.3 cm/sec E/E' med: 19.7 PA mean P.1 mmHg Lat Peak E' Phil: 7.9 cm/sec PA pr(Accel): 43.0 mmHg E/E' lat: 14.0 E/e' average: 16.9 MV dec time: 0.12 sec MVA(VTI): 1.8 cm2 MV V2 mean: 65.5 cm/sec SV(LVOT): 48.6 ml MV mean P.2 mmHg MV V2 VTI: 26.4 cm Electronically signed by: Quin Terrell on Reading Physician:11/11/2024 09:11 AM
[2024-11-11 06:27] LABS: Add Manual Diff / Slide Review NO; Basophils Absolute Auto 0 /uL (0-100); Basophils Percent Auto 0.2 % (0-2); Eosinophils Absolute Auto 0 /uL (0-450); Eosinophils Percent Auto 0.6 % (2-4); Lymphocytes Absolute Auto 1000 /uL (1100-4500); Lymphocytes Percent Auto 16.8 % (25-40); Mean Corpuscular HGB Conc 34.2 % (30-36); Mean Corpuscular Hemoglobin 34.2 PG (26-34); Mean Corpuscular Volume 99.8 fL (80-100); Monocytes Absolute Auto 600 /uL (0-900); Monocytes Percent Auto 10.5 % (3-14); Neutrophils Absolute Auto 4400 /uL (1500-7000); Neutrophils Percent Auto 71.9 % (50-75); Platelet Count 169 X10^3/uL (150-400); Red Blood Cell Count 3.81 X10^6/uL (4.5-5.9); Red Cell Distribution Width 12.6 % (11.6-14.8); White Blood Cell Count 6.1 X10^3/uL (4.5-11.0)
[2024-11-11 06:34] LABS: Alanine Aminotransferase 25 IU/L (<50); Albumin 3.2 g/dL (3.5-5.0); Albumin Globulin Ratio 1.2 (1.0-2.8); Alkaline Phosphatase 64 U/L (38-126); Aspartate Aminotransferase 33 IU/L (17-59); BUN Creatinine Ratio 24.6 (6-22); Bilirubin Total 1.1 mg/dL (0.2-1.3); Blood Urea Nitrogen 15 mg/dL (9-20); Calcium 8.2 mg/dL (8.4-10.2); Carbon Dioxide 22 mmol/L (22-32); Chloride 103 mmol/L (98-107); Estimated Glomerular Filt Rate > 60 mL/min (>60); Globulin 2.7 g/dL (1.7-4.1); Glucose 92 mg/dL (80-110); HEMOLYSIS < 15 (0-50); Magnesium 1.8 mg/dL (1.6-2.3); Potassium 3.9 mmol/L (3.4-5.1); Sodium 133 mmol/L (137-145); Total Protein 5.9 g/dL (6.3-8.2)
[2024-11-11 08:00] VITALS: BP 123/68; PULSE 70; RESP 22; O2SAT 97
[2024-11-11] MEDS: ASCORBIC ACID 500 MG TABLET 1000 MG PO (09:25)
[2024-11-11] MEDS: AZITHROMYCIN 250 MG TABLET PO (09:25)
[2024-11-11] MEDS: ASPIRIN 81 MG CHEW TAB PO (09:25)
[2024-11-11] MEDS: APIXABAN 5 MG TABLET PO ×2 (09:25→20:02)
[2024-11-11] MEDS: SODIUM CHLORIDE 0.9% FLUSH 10 ML IV ×2 (09:25→19:54)
[2024-11-11] MEDS: QUETIAPINE 25 MG TABLET 12.5 MG PO ×2 (09:25→20:02)
[2024-11-11] MEDS: OSELTAMIVIR 75 MG CAPSULE PO ×2 (09:25→20:02)
[2024-11-11] MEDS: cefTRIAXone 1,000 MG in SODIUM CHLORIDE 0.9% 100 ML 200 MG IV (10:20)
--- NOTE | 2024-11-11 11:00 | CM.DPC ---
DCP SNF Cont: Per MD today, pt making some slow improvements and anticipate d/c to SNF tomorrow 11/12 if pt remains stable. DEBRA confirmed with UR RN that pt was changed from OBS to INPT status from time of admit 11/09/24 and will be MCR eligible to d/c to SNF starting tomorrow 11/12. DEBRA updated Dali at [facility] who confirms they can accept pt tomorrow Tues likely between [phone] but will finalize the time in the AM. Called son/POBrigitte Chung and updated on likely d/c to [facility] tomorrow and he confirms he remains agreeable with d/c plan for tomorrow. He continues to remain in contact with [facility] agency for d/c to home after SNF. PASRR done. Plan: SW to follow for plan of d/c to [facility] tomorrow 11/12 via facility van around [phone] where his spouse is currently getting SNF rehab as well before return home with spouse and PP CGs. Judith Wise MSW
--- NOTE | 2024-11-11 12:10 | PT.IPTN ---
Current Diagnoses Sepsis, unspecified organism (11/09/24) Physical Therapy Treatment Note M2 PT-IP Current Condition Start: 11/10/24 09:02 Freq: NEEDED Status: Active Protocol: Document 11/11/24 11:55 SP (Rec: 11/11/24 11:47 SP [id number]) Physical Therapy Current Condition Current Condition Evaluation Date 11/10/24 Treatment Diagnosis Influenza A M3 PT-IP Subjective Start: 11/10/24 09:02 Freq: NEEDED Status: Active Protocol: Document 11/11/24 11:55 SP (Rec: 11/11/24 11:47 SP [id number]) Subjective Physical Therapy Visit Type Type Treatment Note Visit Start Time 11:55 Visit Stop Time 12:10 Number of NUTRITIONAL SERVICES DIRECTOR Visits 1 Physical Therapy Visit Comments Patient Comments Pt elevted in bed eating lunch when arrived. Agreeableto working with NUTRITIONAL SERVICES DIRECTOR to assist him up to chair to eat lunch. M4 PT-IP Mobility and Gait Start: 11/10/24 09:02 Freq: NEEDED Status: Active Protocol: Document 11/11/24 11:55 SP (Rec: 11/11/24 11:47 SP [id number]) PT-Bed Mobility Assessment Supine to Sit Supine to Sit Moderate Assistance,1 Person Assistance,Head of Bed Elevated,Bedrails Scooting Scooting to Edge of Bed Moderate Assistance PT-Transfer Assessment Sit to and From Stand Sit to and from Stand Maximum Assistance,1 Person Assistance,Use of Upper Extremities Equipment Transfer Assistive Device Gait Belt,Front Wheeled Walker Orthotic/Prosthetic Devices or Brace: No Transfers Transfer Destination Chair Transfer Technique Stand Step Pivot Transfer Ability Level of Assist Maximum Assistance,1 Person Assistance,Use of Upper Extremities Comments Mobility Comments Hand over hand for each UE use of bed and and rail during bed mobility self support, Max A x1 use bed sheet for scoot support. STS Max A x1 cues for hand placement 1 FWW/ other bed. Stand step pivot transfer only with FWW, Heavy Max A x1 . Moderate retro lean, cues for sequencing pivot bed>chair BLEs and FWW positioning, assist FWW mobility. Hand over hand reach back and Mod A slow descend sit in chair, Assist scoot back in chair fully. Mod A x1. NUTRITIONAL SERVICES DIRECTOR elevated Pt BLEs in recliner with addition pillow under, provided call light, chair alarm and lunch tray in front with warm blankets on his lap before left. Gait Assessment Comments Gait Comments stand step pivot transfer only with FWW, Heavy Max A x1. Moderate retro lean. PT-Balance Assessment Sitting Balance and Reactions Static Sitting Balance Ability Fair Dynamic Sitting Balance Ability Fair Standing Balance and Reactions Static Standing Balance Ability Poor Dynamic Standing Balance Ability Poor Device Used FWW & gait belt M5 PT-IP Objective Assessments Start: 11/10/24 09:02 Freq: NEEDED Status: Active Protocol: Document 11/10/24 09:11 MB (Rec: 11/10/24 09:40 MB [id number]) Orientation Orientation/Cognition Level of Alertness Confusional State Orientation Name,Birthday,Month,Year Safety Awareness Decreased Safety Awareness Memory Description Short Term Impaired,Skilled Nursing Impaired Comments Unsure baseline diet, pt presents with confusion and his speech is slurred and PT notes hypertrophied B SCMs and little oral movement, swallowing during verbalizations, pt cannot report if he has coughing after eating, he may benefit from DATA WAREHOUSE MANAGER consult as well as cognitive assessment Gross Range of Motion Upper Extremity ROM Impairments Does not follow ROM or MMT commands today Lower Extremity ROM Impairments Does not follow ROM or MMT commands today Strength Comments Strength Comments Does not follow ROM or MMT commands today, functionally weak in legs with standing and attempting stepping Coordination Assessment Gross Coordination Gross Coordination Impaired Assessment Coordination Comments Not formally assesed d/t confusion Sensation Assessment Comments Sensation Comments Not formally assessed d/t confusion M6 PT-IP Treatment Start: 11/10/24 09:02 Freq: NEEDED Status: Active Protocol: Document 11/11/24 11:55 SP (Rec: 11/11/24 11:47 SP [id number]) Physical Therapy Treatment Education Education Provided Safety M7 PT-IP Assessment and Plan Start: 11/10/24 09:02 Freq: NEEDED Status: Active Protocol: Document 11/11/24 11:55 SP (Rec: 11/11/24 11:47 SP [id number]) PT Summary Assessment and Plan Potential Rehabilitation Potential Fair Status of Condition at Evaluation Evolving Summary Impairments ROM,Strength,Balance, Coordination,Cognition,Bed Mobility,Transfers,Gait, Activity Tolerance Progress Towards Goals Slow Progress due to Activity Tolerance,Slow Progress - Other Assessment Summary Pt continues to require Max A bed mobility, Heavy Max Ax1 person for stand step pivot /c FWW, recommending 2 person in future. Will require SNF upon DC at this time to progress strength and functional mobility. . Goals Bed Mobility Goal Independent Transfer Goal Standby Assistance,Cane,Front Wheeled Walker Gait Goal Standby Assistance,Cane,Front Wheel Walker Gait Distance 75 Other Goals Pt will ascend and descend 2 steps with right rail and no more than SBA to allow safe home entrance. Days to Meet Goals 5 Frequency of Treatment Frequency Of Treatment Once a Day Other frequency x2 Treatment Plan Physical Therapy Treatment Plan Bed Mobility Training,Transfer Training,Gait Training, Therapeutic Exercise,Balance Retraining,Discharge Planning, Hot or Cold Pack,Neuromuscular Re-ed,Coordination Retraining ,Manual Therapy Other Recommendations and Next Treatment tranfers, gait with FWW, Focus balance. STS for strengthening pre gait. Precautions Other Precautions Flu (droplet), falls Recommendations To Nursing Amount of Assist Needed 2 Person Assist Discharge Recommendations PT Discharge Recommendations SNF Rehab Transportation Needs at Discharge Wheelchair/Cabulance
[2024-11-11 13:36] VITALS: BP 130/58; PULSE 71; RESP 22; TEMP 36.2; O2SAT 98
--- NOTE | 2024-11-11 15:26 | P.PN_ITS ---
Subjective Subjective Date Patient Seen: 11/11/24 Time Patient Seen: 09:00 Interval history: CC:weakness Tired today and resting. Breathing a bit fast on room air. Eating well when fed, suspect he has not been remembering to prepare meals. Discussed with son Sheldon Avilez is doing ok. He is still having issues with orientation and accurately recalling what is going on. Exam Vital Signs (past 8 hours): - 11/11/24 08:00 11/11/24 09:00 11/11/24 13:36 Temperature 97.1 F L Pulse Rate 70 71 Respiratory Rate 22 22 Blood Pressure 123/68 130/58 L Pulse Oximetry 97 98 Oxygen Delivery Method Room Air Oxygen Flow Rate 0 0 Oxygen Delivery Method Room Air Oxygen Flow Rate 0 Narrative Exam Narrative: laying in bed resting Const Other: well developed too thin Resp Other: mildly tachypneic on room air - mildly reduced breath sounds increased rhonchi on R compared to L Cardio Other: regular rate s1/s2 minimal pedal edema GI Other: soft nontender nondistended active bowel sounds Neuro Other: alert awake interactive oriented to self but not situation really moving all limbs equally Objective Labs 11/11/24 06:00 11/11/24 06:00 Labs: Laboratory Results - last 24 hr 11/11/24 06:00 WBC 6.1 RBC 3.81 L Hgb 13.0 L Hct 38.0 L MCV 99.8 MCH 34.2 H MCHC 34.2 RDW 12.6 Plt Count 169 Neut % (Auto) 71.9 Lymph % (Auto) 16.8 L [place] % (Auto) 10.5 Eos % (Auto) 0.6 L Baso % (Auto) 0.2 Neut # (Auto) 4400 Lymph # (Auto) 1000 L [place] # (Auto) 600 Eos # (Auto) 0 Baso # (Auto) 0 Sodium 133 L Potassium 3.9 Chloride 103 Carbon Dioxide 22 BUN 15 Creatinine 0.61 L Estimated GFR > 60 BUN/Creatinine Ratio 24.6 H Glucose 92 Calcium 8.2 L Magnesium 1.8 Total Bilirubin 1.1 AST 33 ALT 25 Alkaline Phosphatase 64 Total Protein 5.9 L Albumin 3.2 L Globulin 2.7 Albumin/Globulin Ratio 1.2 [facility] Medical History Scoliosis of cervical region due to degenerative disease of spine in adult Closed L3 vertebral fracture Pars defect with spondylolisthesis Cervical spondylosis Weakness Gait instability Arthritis Family History Mother Cancer Father Cancer Social History marital status: household members: spouse lives independently: Yes Smoking Status: Former smoker Smokeless tobacco user: other quit status: quit date established second hand exposure: No alcohol intake: former substance use type: does not use Assessment & Plan Assessment & Plan narrative: 79-year-old male admitted with acute influenza infection and possible community- acquired pneumonia with presentation significant for sepsis due to febrile with hypertension and elevated lactate x2 and procalcitonin. #Influenza A #Possible community acquired pneumonia #weakness/deconditioning Admitted to general medical floor with routine infectious precautions and will continue Tamiflu. 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 This is in setting of acute illness his Midge is down [facility] with recurrent GI bleeds not doing well he is very concerned and lacking local supervision has not been doing well. Certainly related to acute illness. If CT head unrevealing will check MRI Hx of hypertension normotensive off meds, continue and monitor Dispo: admit inpatient continue supportive care looking at placement maybe [facility] with code: full MDM: Sheila (not the most decisional currently), chucho Chung [phone] Diet: general DVT: on eliquis Time-Based Coding :: [TOTAL MINUTES] spent with patient and on the chart (including review of chart, obtaining history, exam, reviewing outside data, placing orders, documenting exam and treatment plan, and counseling patient) on [DATE].
--- NOTE | 2024-11-11 15:40 | OT.IP.EVAL ---
Current Diagnoses Sepsis, unspecified organism (11/09/24) Past Medical History (Last Reviewed 11/09/24 @ 18:58 by Gris Myers MD) Arthritis Cervical spondylosis Closed L3 vertebral fracture Gait instability Pars defect with spondylolisthesis Scoliosis of cervical region due to degenerative disease of spine in adult Weakness Occupational Therapy Inpatient Evaluation/Re-Eval M1 PT/OT-IP Prior Functional Status Start: 11/10/24 09:02 Freq: NEEDED Status: Active Protocol: Document 11/11/24 15:17 JANICE (Rec: 11/11/24 15:40 THEOCOHUANG [id number]) Medical Review Prior Functional Status Medical History Reviewed Yes Communication Unsure baseline diet, pt presents with confusion and his speech is slurred and PT notes hypertrophied B SCMs and little oral movement, swallowing during verbalizations, pt cannot report if he has coughing after eating, he may benefit from DEPUTY CLERK OF COURT consult Mobility and Gait Unclear but it appears that he walks with his one walking stick, he cannot report if he has falls Activities of Daily Living and IADL's He states he lives with his and they look after each other but they do not drive, unsure if they have more help at home Social History Household Members spouse Living Arrangements House Number of Floors (Floors) One Floor Number of Stairs To Enter/Railing? 2 steps and right rail to enter duplex Home Environment High Toilet,Tub/Shower Employment Status Retired M2 OT-IP Current Condition Start: 11/11/24 15:17 Freq: Status: Active Protocol: Document 11/11/24 15:17 JANICE (Rec: 11/11/24 15:40 THEOCOHUANG [id number]) Occupational Therapy Current Condition Current Condition Evaluation Date 11/11/24 Treatment Diagnosis flu,weakness, possible pneumonia Diagnosis Onset Date 11/10/24 Post Operative Precautions Other Precautions Flu (droplet), falls M3 OT- IP Subjective and Pain Start: 11/11/24 15:17 Freq: Status: Active Protocol: Document 11/11/24 15:17 JANICE (Rec: 11/11/24 15:40 THEOCOHUANG [id number]) OT- Subjective Occupational Therapy Visit Type Type Initial Evaluation Visit Start Time 14:50 Visit Stop Time 15:10 Notes Pt is reclined in bed on entrance of OT. Pt agreeable to OT eval. Occupational Therapy Visit Comments Patient Comments pt reports being wore out OT Pain Assessment Pain Present Pain Present Denied Pain M4 OT- IP ADL's Start: 11/11/24 15:17 Freq: Status: Active Protocol: Document 11/11/24 15:17 JANICE (Rec: 11/11/24 15:40 [facility] [id number]) OT [id number] Comments OT Self-Feeding Comments not observed OT ADL-Grooming Comments OT Grooming Comments pt declined OT ADL-Oral Care Comments Oral Care Comments pt declined OT ADL-Dressing General Eval Upper Body Dressing Ability Moderate Assistance Lower Body Dressing Ability Maximum Assistance Areas Needing Assistance Underpants/Brief,Pants/Shorts, Socks Comments OT Dressing Comments pt assists in adjusting hospital gown. pt attempted to don R sock but is unable to initiate. Pt is able to pull up on the heel of his sock to adjust it. OT ADL-Toileting General Evaluation Toileting Ability Maximum Assistance Areas Needing Assistance Manage Clothing,Perform Perineal Hygiene Comments OT Toileting Comments Pt is currently dependent on brief. OT ADL-Bathing Comments OT Bathing Comments not observed. pt would be safest with EOB sponge bath at this time. M5 OT- IP IADL's Start: 11/11/24 15:17 Freq: Status: Active Protocol: Document 11/11/24 15:17 THEOCOHUANG (Rec: 11/11/24 15:40 [facility] [id number]) OT-Instrumental Activities of Daily Living Home Safety Awareness Awareness of Need for Assistance at Home Decreased Awareness Ability to Problem Solve Emergency Unable to Problem Solve Situations Medication Management Medication Management Comments at this time, pt would benefit from assist. it is unclear how much assist he need PLOF. Money Management Money Management Comments at this time, pt would benefit from assist. it is unclear how much assist he need PLOF. Meal Preparation Meal Preparation Comments at this time, pt would benefit from assist. it is unclear how much assist he need PLOF. Travel Rn Or Travel Rn Or Comments at this time, pt would benefit from assist. it is unclear how much assist he need PLOF. Driving Driving Comments at this time, pt would benefit from assist. it is unclear how much assist he need PLOF. M6 OT- IP Functional Cognition Start: 11/11/24 15:17 Freq: Status: Active Protocol: Document 11/11/24 15:17 [facility] (Rec: 11/11/24 15:40 [facility] [id number]) Cognitive Factors Limiting Selfcare Function Cognitive Ability Level of Alertness Confusional State Patient Orientation Name,Place Attention Span Ability Capable of Focused Attention, Unable to Sustain Attention Ability to Follow Commands Able to Follow One Step Commands with Increased Time, Able to Follow One Step Commands with Repetition Memory Description Immediate Impaired,Short Term Impaired,Snf Impaired, Working Impaired Safety Awareness Underestimates Need for Assistance Problem Solving Ability Needs Assist to Identify Solutions Executive Function Ability Unable to Hold Focus,Unable to Switch Focus,Unable to Make Plans Cognitive Tests SLUMS Pt scored a 4/30, indicating dementia is likely. Pt was able to state the correct State, identify the largest figure, and recall one answer from a short story. Pt may benefit from having the assessment repeated. OT- Vision and Hearing OT- Hearing Assessment OT- Hearing Assessment WFL OT- Vision Assessment Visual Acuity WFL M7 OT- IP Mobility and Balance Start: 11/11/24 15:17 Freq: Status: Active Protocol: Document 11/11/24 15:17 [facility] (Rec: 11/11/24 15:40 [facility] [id number]) OT- Bed Mobility Assessment Rolling Type of Rolling Roll to Left Level of Assistance Minimal Assistance,1 Person Assistance,Head of Bed Elevated,Bedrails Supine to Sit Supine to Sit Assist Moderate Assistance,1 Person Assistance,Bedrails Sit to Supine Sit to Supine Assist Moderate Assistance,1 Person Assistance,Bedrails Scooting Scooting to Edge of Bed Contact Guard Assistance,1 Person Assistance,Bedrails OT-Transfer Assessment Sit to and From Stand Sit to and from Stand Moderate Assistance,1 Person Assistance,Use of Upper Extremities Devices Transfer Assistive Devices Gait Belt,Front Wheeled Walker Orthotic/Prosthetic Devices or Brace: No Comments Mobility Comments Pt requires vc for hand placement with sit>stand, vc to place both on walker prior to taking steps to HOB, mod A to correct posterior lean, OT to guide walker while taking steps to HOB, and vc to reach back before sitting. OT- Gait Assessment Assistive Devices Orthotic/Prosthetic Devices or Brace: No OT- Balance Assessment Sitting Balance and Reactions Static Sitting Balance Ability Fair Dynamic Sitting Balance Ability Fair Standing Balance and Reactions Static Standing Balance Ability Poor M8 OT- IP Objective Assessments Start: 11/11/24 15:17 Freq: Status: Active Protocol: Document 11/11/24 15:17 JANICE (Rec: 11/11/24 15:40 [facility] [id number]) OT Gross Range of Motion Upper Extremity Range of Motion Assessment Within Functional Limits OT Strength Upper Extremity Strength Assessment Within Functional Limits Comments Strength Comments Pt does not follow commands well for MMT. Pt demonstrates 3+ to 4- at times B. OT-Muscle Tone Assessment Muscle Tone WNL Yes M9 OT- IP Assessment and Plan Start: 11/11/24 15:17 Freq: Status: Active Protocol: Document 11/11/24 15:17 JANICE (Rec: 11/11/24 15:40 [facility] [id number]) OT Summary Assessment and Plan Potential Rehabilitation Potential Fair Analytic Complexity at Evaluation High Summary OT Impairments Strength,Balance,Coordination, Functional Cognition, Functional Mobility,Self- Feeding,Grooming,Dressing, Toileting,Bathing,Toilet Transfers,Shower Transfers, Activity Tolerance Progress Towards Goals Progressing Toward Goals Assessment Summary Pt is an 79 yo M who presented to ED with weakness, increased cough, SOB, and confusion. Pt was found to have flu and possible pneumonia. Pts speech is very slurred and may benefit from a ST evaluation. Pt was agreeable to participating in OT eval. Pt requires mod-max A with dressing, mod A with functional t/fs, presents with decreased safety awareness, and activity intolerance. Pt SLUMS is 4/30. Pt would likely benefit from having this retested in a day or two. Skilled OT services are appropriate to address pt deficits and promote return toward PLOF. Goals Grooming Goal Standby Assistance Dressing Goal Standby Assistance Toileting Goal Standby Assistance Bathing Goal Standby Assistance Toilet Transfer Goal Standby Assistance Shower Transfer Goal Contact Guard Assistance Frequency of Treatment Other frequency 5x/wk Treatment Plan OT Treatment Plan ADL Training,Functional Mobility,Therapeutic Exercises ,Patient/Family Education, Discharge Planning Other Treatment Recommendations and Next seated ADLs, repeat SLUMS Treatment Focus Discharge Recommendations OT Discharge Recommendations SNF Rehab Transportation Needs at Discharge Wheelchair/Cabulance,Stretcher /Ambulance
[2024-11-11 19:50] VITALS: BP 148/73; PULSE 69; RESP 18; TEMP 36.6; O2SAT 96
[2024-11-12 01:00] VITALS: BP 154/71; PULSE 70; RESP 18; TEMP 36.5; O2SAT 96
--- NOTE | 2024-11-12 02:48 | PC.NURSE ---
Addendum entered by Cayla Wetzel R.N. 11/12/24 04:34: Using the call light to call for assist. Original Note: Pt knows he is in the hospital now, appears more alert, able to follow command.
[2024-11-12 08:00] VITALS: BP 160/83; PULSE 70; RESP 12; TEMP 36.7; O2SAT 96
[2024-11-12] MEDS: SODIUM CHLORIDE 0.9% FLUSH 10 ML IV (08:02)
[2024-11-12] MEDS: OSELTAMIVIR 75 MG CAPSULE PO (08:02)
[2024-11-12] MEDS: ASCORBIC ACID 500 MG TABLET 1000 MG PO (08:02)
[2024-11-12] MEDS: QUETIAPINE 25 MG TABLET 12.5 MG PO (08:02)
[2024-11-12] MEDS: DOCUSATE 100 MG CAPSULE PO (08:02)
[2024-11-12] MEDS: ASPIRIN 81 MG CHEW TAB PO (08:02)
[2024-11-12] MEDS: AZITHROMYCIN 250 MG TABLET PO (08:02)
[2024-11-12] MEDS: APIXABAN 5 MG TABLET PO (08:03)
--- NOTE | 2024-11-12 10:48 | CM.DPC ---
DCP Cont. Reviewed EMR and team rounds for status updates. Pt has been medically cleared for d/c to [facility] today, they will transport between 1-2pm, will confirm the time more definitively and provide for RN prior to d/c. D/c clinicals faxed. No further d/c needs are identified at this time.
[2024-11-12] MEDS: cefTRIAXone 1,000 MG in SODIUM CHLORIDE 0.9% 100 ML 200 MG IV (11:39)
--- NOTE | 2024-11-12 11:44 | OT.IP.TRT ---
Current Diagnoses Sepsis, unspecified organism (11/09/24) Occupational Therapy Treatment Note M2 OT-IP Current Condition Start: 11/11/24 15:17 Freq: Status: Active Protocol: Document 11/11/24 15:17 JANICE (Rec: 11/11/24 15:40 [facility] [id number]) Occupational Therapy Current Condition Current Condition Evaluation Date 11/11/24 Treatment Diagnosis flu,weakness, possible pneumonia Diagnosis Onset Date 11/10/24 Post Operative Precautions Other Precautions Flu (droplet), falls M3 OT- IP Subjective and Pain Start: 11/11/24 15:17 Freq: Status: Active Protocol: Document 11/12/24 11:34 [facility] (Rec: 11/12/24 13:06 [facility] [id number]) OT- Subjective Occupational Therapy Visit Type Visit Start Time 11:34 Visit Stop Time 11:44 Occupational Therapy Visit Comments Patient Comments Pt agreed to redo SLUMS as feels thinking better and more alert from yesterday. OT Pain Assessment Pain Present Pain Present Denied Pain M4 OT- IP ADL's Start: 11/11/24 15:17 Freq: Status: Active Protocol: Document 11/11/24 15:17 JANICE (Rec: 11/11/24 15:40 [facility] [id number]) OT [id number] Comments OT Self-Feeding Comments not observed OT ADL-Grooming Comments OT Grooming Comments pt declined OT ADL-Oral Care Comments Oral Care Comments pt declined OT ADL-Dressing General Eval Upper Body Dressing Ability Moderate Assistance Lower Body Dressing Ability Maximum Assistance Areas Needing Assistance Underpants/Brief,Pants/Shorts, Socks Comments OT Dressing Comments pt assits in adjusting hospital gown. pt attempted to don R sock but is unable to initiate. Pt is able to pull up on the heel of his sock to adjust it. OT ADL-Toileting General Evaluation Toileting Ability Maximum Assistance Areas Needing Assistance Manage Clothing,Perform Perineal Hygiene Comments OT Toileting Comments Pt is currently dependent on brief. OT ADL-Bathing Comments OT Bathing Comments not observed. pt would be safest with EOB sponge bath at this time. M5 OT- IP IADL's Start: 11/11/24 15:17 Freq: Status: Active Protocol: Document 11/11/24 15:17 JANICE (Rec: 11/11/24 15:40 [facility] [id number]) OT-Instrumental Activities of Daily Living Home Safety Awareness Awareness of Need for Assistance at Home Decreased Awareness Ability to Problem Solve Emergency Unable to Problem Solve Situations Medication Management Medication Management Comments at this time, pt would benefit from assist. it is unclear how much assist he need PLOF. Money Management Money Management Comments at this time, pt would benefit from assist. it is unclear how much assist he need PLOF. Meal Preparation Meal Preparation Comments at this time, pt would benefit from assist. it is unclear how much assist he need PLOF. Cpr Instructor Cpr Instructor Comments at this time, pt would benefit from assist. it is unclear how much assist he need PLOF. Driving Driving Comments at this time, pt would benefit from assist. it is unclear how much assist he need PLOF. M6 OT- IP Functional Cognition Start: 11/11/24 15:17 Freq: Status: Active Protocol: Document 11/12/24 11:34 [facility] (Rec: 11/12/24 13:06 [facility] [id number]) Cognitive Factors Limiting Selfcare Function Cognitive Ability Level of Alertness Alert,Drowsy Patient Orientation Name,Month,Year,Place Attention Span Ability Capable of Focused Attention, Unable to Sustain Attention Ability to Follow Commands Able to Follow One Step Commands with Increased Time, Able to Follow One Step Commands with Repetition Memory Description Short Term Impaired,Working Impaired Executive Function Ability Unable to Switch Focus,Unable to Make Plans,Unable to Remember Details Cognitive Tests SLUMS Pt scored improved to 8/30 today which still implies dementia. Pt able to states the year, state, name 7 animals in one minute, recall 1/5 objects after time passed, able to draw the x on the triangle and pick out the largest shape, and answer 2/4 questions right after paragraph read. Cognitive Comments Cognitive Assessment Comments Pt making some improvements with cognition but he still feels not thinking well and not at his baseline yet. SLUMS scored improved to 8/30 from 01/08. M7 OT- IP Mobility and Balance Start: 11/11/24 15:17 Freq: Status: Active Protocol: Document 11/11/24 15:17 [email or web address] (Rec: 11/11/24 15:40 [facility] [id number]) OT- Bed Mobility Assessment Rolling Type of Rolling Roll to Left Level of Assistance Minimal Assistance,1 Person Assistance,Head of Bed Elevated,Bedrails Supine to Sit Supine to Sit Assist Moderate Assistance,1 Person Assistance,Bedrails Sit to Supine Sit to Supine Assist Moderate Assistance,1 Person Assistance,Bedrails Scooting Scooting to Edge of Bed Contact Guard Assistance,1 Person Assistance,Bedrails OT-Transfer Assessment Sit to and From Stand Sit to and from Stand Moderate Assistance,1 Person Assistance,Use of Upper Extremities Devices Transfer Assistive Devices Gait Belt,Front Wheeled Walker Orthotic/Prosthetic Devices or Brace: No Comments Mobility Comments Pt requires vc for hand placement with sit>stand, vc to place both on walker prior to taking steps to HOB, mod A to correct posterior lean, OT to guide walker while taking steps to HOB, and vc to reach back before sitting. OT- Gait Assessment Assistive Devices Orthotic/Prosthetic Devices or Brace: No OT- Balance Assessment Sitting Balance and Reactions Static Sitting Balance Ability Fair Dynamic Sitting Balance Ability Fair Standing Balance and Reactions Static Standing Balance Ability Poor M8 OT- IP Objective Assessments Start: 11/11/24 15:17 Freq: Status: Active Protocol: Document 11/11/24 15:17 [facility] (Rec: 11/11/24 15:40 [facility] [id number]) OT Gross Range of Motion Upper Extremity Range of Motion Assessment Within Functional Limits OT Strength Upper Extremity Strength Assessment Within Functional Limits Comments Strength Comments Pt does not follow commands well for MMT. Pt demonstrates 3+ to 4- at times B. OT-Muscle Tone Assessment Muscle Tone WNL Yes M9 OT- IP Assessment and Plan Start: 11/11/24 15:17 Freq: Status: Active Protocol: Document 11/12/24 11:34 [facility] (Rec: 11/12/24 13:06 [facility] [id number]) OT Summary Assessment and Plan Potential Rehabilitation Potential Fair Analytic Complexity at Evaluation High Summary OT Impairments Strength,Balance,Coordination, Functional Cognition, Functional Mobility,Self- Feeding,Grooming,Dressing, Toileting,Bathing,Toilet Transfers,Shower Transfers, Activity Tolerance Progress Towards Goals Slow Progress due to Medical Issues,Slow Progress due to Cognition Assessment Summary Pt looking to go to skilled rehab today. Pt still not feeling well and state not thinking well yet. Goals Grooming Goal Standby Assistance Dressing Goal Standby Assistance Toileting Goal Standby Assistance Bathing Goal Standby Assistance Toilet Transfer Goal Standby Assistance Shower Transfer Goal Contact Guard Assistance Days to Meet Goals 25 Frequency of Treatment Other frequency 5x/wk Treatment Plan OT Treatment Plan ADL Training,Functional Mobility,Therapeutic Exercises ,Patient/Family Education, Discharge Planning Discharge Recommendations OT Discharge Recommendations SNF Rehab Transportation Needs at Discharge Wheelchair/Cabulance
--- NOTE | 2024-11-12 13:21 | P.DS_ITS ---
History of Present Illness History of Present Illness Chief complaint: cough/chills/back & leg pain Narrative: This is a very pleasant patient of Dr. Garcia who is seen in [facility]. Patient was in his usual state of health and several days ago started developing a cough. He was becoming incredibly weak and unable to care for himself and came to the ER for evaluation. Workup revealed a normal chest x-ray and influenza positive with normal white blood cell count, low-grade fever, positive procalcitonin and lactate. Blood cultures are pending he was given ceftriaxone and azithromycin for suspected post influenza community-acquired pneumonia and was admitted for further treatment. He was given Tamiflu as well. Patient required 3 people to transfer from the ER gurney to the hospital bed. This is not his baseline. He is currently not requiring oxygen though on initial presentation to the ER was in the 89%. Patient has a history of heart disease with pacemaker for complete heart block, prepped paroxysmal atrial fibrillation and TAVR in 2021. Patient has had significant weight loss thought to be due to stress due to concern for his and her ongoing illness. She is currently in a skilled care facility and patient is very worried about her. Otherwise patient denies any rashes or vomiting or diarrhea or blood in his stool. He has had a very poor appetite. He has been trying to keep fluids down. He denies any chest pain. He denies any significant shortness of breath. Denies any abdominal pain. Denies any urinary symptoms. Reviewed cardiology note and clinic note from Dr. Garcia PMH: P afib pacemaker for complete heart block chronic anticoagulation hyperlipidemia Paroxysmal nonsustained ventricular tachycardia Acute heart failure with preserved EF (HFpEF) Barretts esophagus pad GERD HTN Eliquis Baby aspirin Simvastatin although patient states he has not on it any longer although it is in his med list from our clinic chart Allergies: No known drug allergies PSHx: TAVR 2021 Health related behavior: Patient has a distant history of tobacco abuse. Patient is not use alcohol regularly. Family history is negative for pulmonary problems Mother from liver cancer and father from lung cancer Social history: Patient lives in private residence here in [facility]. He is and his is having health problems in his currently in a skilled care facility. He has children who are local and are attentive and helpful 12 point review of systems is otherwise negative Discharge Providers Provider Date of admission: 11/09/24 13:02 Discharge Date: 11/12/24 Primary care physician: Tacho Bartholomew MD Consults: 11/09/24 15:57 Consult to Discharge Planning Routine Comment: Consult to Physical Therapy Evaluate & Treat Comment: Physician Instructions: Evaluate and Treat 11/11/24 08:22 Consult to Occupational Therapy Evaluate & Treat Comment: Physician Instructions: Evaluate and treat Discharge provider: Gris Myers MD Summary Hospital Course Discharge Diagnosis: Influenza, improving Community-acquired pneumonia, improving Sepsis, improving blood cultures negative Anemia, chronic Confusion acute unclear baseline but per primary care physician worsened from baseline. Suspect multifactorial including infection. Currently stable improving Profound weakness due to acute infection Hospital Course: Patient was admitted to the hospital with profound weakness and influenza with possible community-acquired pneumonia. Patient was started on Tamiflu and ceftriaxone and azithromycin. Patient initially required oxygen but this was quickly weaned off. PT and OT were consulted. Repeat chest x-ray showed no infiltrate. Patient continued to have confusion and was improving in this regard. Patient was placed on Seroquel 12.5 mg twice daily with improvement. No change in chronic anemia. Hospital day 3. Patient was discharged to skilled care for PT, OT. Patient has a-half left of Tamiflu. Will treat with 1 more dose of azithromycin this will complete a 5 day course and will do 5 more days of cefuroxime 500 mg twice daily. He will continue the Seroquel 12.5 mg twice daily. He will continue his outpatient medication of Eliquis. 35 minutes was spent in discharge today Status at Discharge Cognitive/behavioral status at discharge: confused Overall status at discharge: patient is progressing back to baseline Exam Vital Signs (past 8 hours): - 11/12/24 08:00 Temperature 98.1 F Pulse Rate 70 Respiratory Rate 12 Blood Pressure 160/83 H Pulse Oximetry 96 Oxygen Delivery Method Room Air Oxygen Flow Rate 0 Narrative Exam Narrative: Afebrile vital signs are stable Patient is more alert. He still is asking me to find his phone and his wallet. He understands he will be discharged to [facility] where his is. HEENT unremarkable Neck: Supple Chest: Persistent rhonchi and wheeze but improved air exchange Cor: Regular rate and rhythm without murmur distant S1-S2 Abdomen positive bowel sounds Extremities no rashes and pulses intact Objective Labs 11/11/24 06:00 11/11/24 06:00 [facility] Medical History Scoliosis of cervical region due to degenerative disease of spine in adult Closed L3 vertebral fracture Pars defect with spondylolisthesis Cervical spondylosis Weakness Gait instability Arthritis Family History Mother Cancer Father Cancer Social History marital status: household members: spouse lives independently: Yes Smoking Status: Former smoker Smokeless tobacco user: other quit status: quit date established second hand exposure: No alcohol intake: former substance use type: does not use Discharge Assessment & Plan Assessment and Plan Assessment: Assessment 1. Influenza a Plan: Assessment 2. Possible community-acquired pneumonia with normal chest x-ray but suspect this may have been because he was dehydrated. More concerning lung findings now but patient is stable on room air. Plan: Assessment 3. Profound weakness. Unclear what his baseline is. Will treat influenza and community-acquired pneumonia and will workup further if not improving Assessment 4. History of PE AFib on chronic anticoagulation per Cardiology note I think they ordered outpatient echo which he is due for. Plan: Will continue same outpatient Eliquis. Assessment 5. Confusion suspect multifactorial. Certainly related to acute illness. CT scan was negative. Continue with Seroquel 12.5 mg twice daily. Cognition is improving as we treat his influenza. Discharge Plan Discharge Plan Patient Disposition: SNF Transfer to: [facility] Consult as needed: Dental, Hearing, Mental health, Podiatry and Vision Discharge orders & Medications Prescriptions: New quetiapine 25 mg Tablet 12.5 mg PO BID Qty: 60 0RF azithromycin [Zithromax Z-Yash] 250 mg Tablet 250 mg PO DAILY Qty: 1 0RF oseltamivir [Tamiflu] 75 mg Capsule 75 mg PO BID Qty: 3 0RF cefuroxime axetil 500 mg tablet 500 mg PO BID Qty: 10 0RF Continued Eliquis 5 mg tablet 5 mg PO BID aspirin [Mariola Chewable Aspirin] 81 mg tablet,chewable 81 mg PO DAILY ascorbic acid (vitamin C) 500 mg capsule 1,000 mg PO DAILY Patient Comments: 1000 UNITS PO ; Follow up/Referrals: Tacho Bartholomew MD [Primary Care Provider] - Visit Report/Discharge Packet Stand Alone Forms: Patient Portal/API Discharge Data Primary Care Provider: Tacho Bartholomew
--- NOTE | 2024-11-12 13:37 | PC.NURSE ---
Discharge note: IV's removed, belongings packed. Wheeled out via wheelchair by facility designee. Report given to Jose Guadalupe at [facility]- no further questions.
== END 2024-11-12 13:25 | DRG 871 ==
LOC: ED 13:00 → AC 13:23
PROVIDERS: Admitting Provider Family Medicine; Emergency Provider Emergency Medicine; Family Provider Family Medicine; PCP Family Medicine; Referring Provider Emergency Medicine; Visit Provider Family Medicine
DX: A41.9 Sepsis, unspecified organism (principal); E43 Unspecified severe protein-calorie malnutrition; J18.9 Pneumonia, unspecified organism; J10.1 Influenza due to other identified influenza virus with other respiratory manifestations; E86.0 Dehydration; E78.5 Hyperlipidemia, unspecified; I10 Essential (primary) hypertension; E88.09 Other disorders of plasma-protein metabolism, not elsewhere classified; D64.9 Anemia, unspecified; R41.0 Disorientation, unspecified; I48.91 Unspecified atrial fibrillation; Z95.0 Presence of cardiac pacemaker; Z95.2 Presence of prosthetic heart valve; Z79.01 Long term (current) use of anticoagulants; Z87.891 Personal history of nicotine dependence; Z86.711 Personal history of pulmonary embolism; Z68.22 Body mass index [BMI] 22.0-22.9, adult
CPT/HCPCS: 0241U; 36415; 70450; 71045; 71046; 80048; 80053; 81001; 82607; 82746; 83605; 83690; 83735; 83880; 84145; 84443; 85025; 85610; 85730; 87040; 93005; 93306; 96361; 96365; 97129; 97162; 97167; 97530; 99284; 99291; J0696